=== PATIENT | male | born 1970 | race Caucasian/White ===

== ENCOUNTER → 2020-04-07 13:29 | Outpatient (BNVA) | payer BC, SELFPAY | PROVIDERS: PCP Nurse Practitioner Family; Referring Provider Nurse Practitioner Family; Visit Provider Dietitian, Registered | DX: Z76.89 Persons encountering health services in other specified circumstances (principal) ==

== ENCOUNTER → 2020-04-08 14:36 | Outpatient (BNVA) | payer BC, SELFPAY | PROVIDERS: PCP Nurse Practitioner Family; Referring Provider Nurse Practitioner Family; Visit Provider Urology | DX: Z76.89 Persons encountering health services in other specified circumstances (principal) ==

== ENCOUNTER → 2020-05-13 13:29 | Outpatient (BNVA) | payer BC, SELFPAY | PROVIDERS: PCP Nurse Practitioner Family; Referring Provider Nurse Practitioner Family; Visit Provider Dietitian, Registered | DX: E78.5 Hyperlipidemia, unspecified (principal); Z71.3 Dietary counseling and surveillance; Z68.27 Body mass index [BMI] 27.0-27.9, adult | CPT/HCPCS: 97803 ==

== ENCOUNTER 2020-06-02 16:40 | Outpatient (REF) | payer BC, SELFPAY | END 2020-06-02 16:41 | disposition home or self-care (01) | LOC: HO.LAB 16:40 | PROVIDERS: PCP Nurse Practitioner Family; Visit Provider Internal Medicine | DX: Z20.828 Contact with and (suspected) exposure to other viral communicable diseases (principal) | CPT/HCPCS: C9803; U0003 ==

== ENCOUNTER → 2020-07-29 09:58 | Outpatient (BNVA) | payer BC, SELFPAY | PROVIDERS: PCP Nurse Practitioner Family; Referring Provider Nurse Practitioner Family; Visit Provider Dietitian, Registered | DX: E78.5 Hyperlipidemia, unspecified (principal) | CPT/HCPCS: 97803 ==

== ENCOUNTER 2020-08-05 12:07 | Outpatient (REF) | payer BC, SELFPAY ==
--- NOTE | 2020-08-05 12:11 | XR_ITS ---
EXAMINATION: XR HAND, LEFT CLINICAL INFORMATION: Pain left fingers COMPARISON: None TECHNIQUE: PA, lateral, and oblique views of the left hand. FINDINGS: The bones and soft tissues are normal. No fracture. Alignment is anatomic. Joint spaces are maintained. No erosions or soft tissue calcifications. XR/XR hand LT min 3V IMPRESSION: There is no visible acute fracture or dislocation especially no abnormality involving the first digit.
== END 2020-08-05 12:08 | disposition home or self-care (01) ==
LOC: HO.HMGCX 12:07
PROVIDERS: PCP Nurse Practitioner Family; Visit Provider Physician Assistant
DX: M79.645 Pain in left finger(s) (principal)
CPT/HCPCS: 73130

== ENCOUNTER → 2020-09-08 14:43 | Outpatient (BNVA) | payer BC, SELFPAY | PROVIDERS: PCP Nurse Practitioner Family; Visit Provider Orthopaedic Surgery ==

== ENCOUNTER 2020-10-02 07:13 | Outpatient (REF) | payer BC, SELFPAY ==
--- NOTE | ~2020-10-02 | MR_ITS ---
EXAMINATION: MR HAND WITHOUT CONTRAST, LEFT CLINICAL INFORMATION: Pain in the left finger. COMPARISON: Radiograph dated 08/05/2020 TECHNIQUE: Multiplanar MR imaging was obtained through the left hand without contrast material on a 1.5 Mariah magnet. The distal phalanges of the index through ring fingers are not fully included on these images. FINDINGS: A small cystic focus in the medial aspect of the triquetrum likely corresponds to a carpal cyst. Bone marrow signal is otherwise normal. No fracture or malalignment. Articular cartilage appears well preserved. Alignment is anatomic. No joint effusions are identified. Tendons are intact. No tears or tendinosis. No appreciable tenosynovitis. There is mild edema signal in the palmar aspect of the thumb around the flexor tendon proximal to the distal phalanx is of uncertain etiology and could be due to direct soft tissue contusion. No significant tenosynovitis. No focal lesions are identified. The pulleys appear intact. Intrinsic hand musculature is normal in signal intensity. The median nerve appears diminished in caliber at the level of the carpal tunnel with increased caliber proximally and distally. There is also mildly increased intrasubstance signal within the median nerve at the level of the carpal tunnel. Guyon's canal is unremarkable. MR/MR hand LT wo con IMPRESSION: 1. Mild edema signal around the flexor tendon of the thumb without a tear, tendinosis, or tenosynovitis. This finding is of uncertain etiology, potentially due to a contusion or local trauma. No inflammatory nodules are identified. 2. Narrow carpal tunnel with mild associated thinning of the median nerve. These findings are nonspecific, though correlation for symptoms of carpal tunnel syndrome is advised.
== END 2020-10-02 07:14 | disposition home or self-care (01) ==
LOC: HO.MRI 07:13
PROVIDERS: Visit Provider Orthopaedic Surgery
DX: M79.645 Pain in left finger(s) (principal)
CPT/HCPCS: 73218

== ENCOUNTER → 2020-10-22 09:06 | Outpatient (BNVA) | payer BC, SELFPAY | PROVIDERS: Visit Provider Orthopaedic Surgery ==

== ENCOUNTER → 2020-11-26 08:56 | Outpatient (BNVA) | payer BC, SELFPAY | PROVIDERS: PCP Nurse Practitioner Family; Visit Provider Dietitian, Registered | DX: E78.5 Hyperlipidemia, unspecified (principal) | CPT/HCPCS: 97803 ==

== ENCOUNTER → 2021-02-27 12:12 | Outpatient (BNVA) | payer BC, SELFPAY | PROVIDERS: PCP Nurse Practitioner Family; Visit Provider Dietitian, Registered | DX: E78.5 Hyperlipidemia, unspecified (principal); Z88.6 Allergy status to analgesic agent; Z88.5 Allergy status to narcotic agent; Z88.8 Allergy status to other drugs, medicaments and biological substances; Z91.018 Allergy to other foods; Z71.3 Dietary counseling and surveillance | CPT/HCPCS: 97803 ==

== ENCOUNTER 2021-03-04 15:03 | Outpatient (REF) | payer BC, SELFPAY ==
--- NOTE | ~2021-03-04 | XR_ITS ---
EXAMINATION: XR CHEST CLINICAL INFORMATION: Shortness of breath COMPARISON: June 21, 2019 TECHNIQUE: 2 views of the chest were obtained. FINDINGS: No significant abnormality is noted involving the heart, lungs, mediastinum, bony thorax or soft tissues. XR/XR chest 2V IMPRESSION: No acute disease.
== END 2021-03-04 15:04 | disposition home or self-care (01) ==
LOC: HO.HMGCX 15:03
PROVIDERS: PCP Nurse Practitioner Family; Visit Provider Internal Medicine
DX: Z13.89 Encounter for screening for other disorder (principal)
CPT/HCPCS: 71046

== ENCOUNTER 2021-04-08 14:40 | Outpatient (REF) | payer BC, SELFPAY ==
--- NOTE | ~2021-04-08 | XR_ITS ---
EXAMINATION: XR CHEST CLINICAL INFORMATION: Shortness of breath COMPARISON: Previous chest x-ray March 2021 TECHNIQUE: 2 views of the chest were obtained. FINDINGS: No significant abnormality is noted involving the heart, lungs, mediastinum, bony thorax or soft tissues. XR/XR chest 2V IMPRESSION: Unremarkable examination.
[2021-04-08 16:30] LABS: MANUAL DIFF FLAG NO
[2021-04-08 16:32] LABS: Basophils Absolute Auto 0.1 X10*3/uL (0.0-0.2); Basophils Percent Auto 1.1 % (0-2); Eosinophils Absolute Auto 0.1 X10*3/uL (0.0-0.4); Eosinophils Percent Auto 0.9 % (0-4); Hemoglobin 14.1 g/dl (14.0-18.0); Imm Gran Abs Auto 0.02 X10*3/uL (0.00-0.03); Imm Gran Pct Auto 0.4 % (0.0-0.4); Lymphocytes Absolute Auto 1.6 X10*3/uL (1.2-4.9); Mean Corpuscular HGB Conc 32.8 g/dl (31.0-36.0); Mean Corpuscular Hemoglobin 27.3 pg (27.0-33.0); Mean Corpuscular Volume 83.3 fL (80-98); Monocytes Absolute Auto 0.4 X10*3/uL (0.1-1.2); Monocytes Percent Auto 6.8 % (2-11); Neutrophils Absolute Auto 3.3 X10*3/uL (2.0-8.3); Neutrophils Percent Auto 60.8 % (45-73); Platelet Count 222 X10*3/uL (160-400); Red Blood Count 5.16 X10*6/uL (4.60-5.80); Red Cell Distribution Width 12.6 % (11.0-16.0); White Blood Count 5.5 X10*3/uL (4.8-10.8)
[2021-04-08 17:21] LABS: TSH reflex Free T4 1.17 uIU/mL (0.32-4.0)
== END 2021-04-08 14:41 | disposition home or self-care (01) ==
LOC: HO.HMGCX 14:40
PROVIDERS: PCP Nurse Practitioner Family; Visit Provider Nurse Practitioner Family
DX: Z00.00 Encounter for general adult medical examination without abnormal findings (principal); R06.02 Shortness of breath; Z20.822 Contact with and (suspected) exposure to COVID-19
CPT/HCPCS: 71046; 84443; 85025; U0003; U0005

== ENCOUNTER 2021-05-20 14:01 | Outpatient (REF) | payer BC, SELFPAY ==
--- NOTE | ~2021-05-20 | US_ITS ---
EXAMINATION: US RETROPERITONEAL LIMITED (RENAL ONLY) CLINICAL INFORMATION: Cyst of kidney, acquired. COMPARISON: Ultrasound abdomen 03/28/2014. Renal ultrasound 03/24/2020 and 03/13/2019. TECHNIQUE: Real-time imaging of the kidneys. FINDINGS: RIGHT KIDNEY: 12.0 x 6.3 x 6.8 cm (SAG x AP x TRV). The kidney is normal in size, contour, and echogenicity. Renal cortical thickness is normal. No renal calculi or hydronephrosis. The midpole benign Bosniak class I simple cyst present measuring 3.8 x 3.1 x 3.3 cm, needs no further follow up. LEFT KIDNEY: 11.3 x 5.6 x 5.6 cm (SAG x AP x TRV). The kidney is normal in size, contour, and echogenicity. Renal cortical thickness is normal. No renal calculi or hydronephrosis. Benign Bosniak class I lower pole 1.1 x 0.9 x 1.0 cm cyst needs no further follow up. Incidental note made of an echogenic liver consistent with hepatic steatosis. US/US renal BI IMPRESSION: Benign simple Bosniak class I cysts need no further follow up. Incidentally noted hepatic steatosis which has been seen in the past.
== END 2021-05-20 14:02 | disposition home or self-care (01) ==
LOC: HO.US 14:01
PROVIDERS: Visit Provider Urology
DX: N28.1 Cyst of kidney, acquired (principal)
CPT/HCPCS: 76775

== ENCOUNTER → 2021-09-11 11:58 | Outpatient (BNVA) | payer BC, SELFPAY | PROVIDERS: PCP Nurse Practitioner Family; Visit Provider Dietitian, Registered | DX: E78.5 Hyperlipidemia, unspecified (principal); Z71.3 Dietary counseling and surveillance | CPT/HCPCS: 97803 ==

== ENCOUNTER 2021-09-15 11:42 | Outpatient (REF) | payer BC, SELFPAY ==
[2021-09-15 14:00] LABS: Hematocrit 47.7 % (42.0-52.0); Hemoglobin 15.5 g/dl (14.0-18.0); Mean Corpuscular HGB Conc 32.5 g/dl (31.0-36.0); Mean Corpuscular Hemoglobin 27.1 pg (27.0-33.0); Mean Corpuscular Volume 83.4 fL (80.0-98.0); Platelet Count 200 X10*3/uL (160-400); Red Blood Count 5.72 X10*6/uL (4.60-5.80); Red Cell Distribution Width 12.4 % (11.0-16.0)
[2021-09-15 14:16] LABS: Alanine Aminotransferase 41 U/L (0-40); Albumin Level 4.7 g/dL (3.5-5.0); Alkaline Phosphatase 84 U/L (39-117); Anion Gap 15 (12-20); Aspartate Amino Transferase 20 U/L (5-37); Bilirubin Direct 0.2 mg/dL (0.0-0.5); Bilirubin Total 0.6 mg/dL (0.0-1.0); Blood Urea Nitrogen 14 mg/dL (9-16); C Reactive Protein 0.05 mg/dL (< or = 0.50); Calcium 9.9 mg/dL (8.4-10.2); Carbon Dioxide 27 mmol/L (22-29); Chloride 97 mmol/L (96-108); Cholesterol 290 mg/dL; Estimated Glomerular Filt Rate > 60; Glucose Random 347 mg/dL (60-115); HDL Cholesterol 41 mg/dL; Potassium 4.2 mmol/L (3.3-5.1); Sodium 135 mmol/L (135-145); Triglycerides 468 mg/dL
[2021-09-15 14:30] LABS: Thyroid Stimulating Hormone 1.24 uIU/mL (0.32-4.0)
[2021-09-15 14:32] LABS: Estimated Average Glucose 295 mg/dL; Hemoglobin A1c % 11.9 %
[2021-09-15 14:36] LABS: Appearance Urine CLEAR; Color Urine YELLOW; Glucose Urine UA >=1000 MG/DL (NEG); Leukocyte Esterase Urine NEG (NEG); Nitrite Urine NEG (NEG); PH 5.5 (5.0-8.0); Urine Blood 2+ (NEG); Urine Ketones NEG (NEG); Urine Protein NEG (NEG-TRACE)
[2021-09-15 14:54] LABS: Squamous Epithelial Cell Urine TRACE /LPF; WBC Urine 0 /HPF (0-4)
== END 2021-09-15 11:43 | disposition home or self-care (01) ==
LOC: HO.HMGCLDS 11:42
PROVIDERS: Visit Provider Internal Medicine
DX: R63.4 Abnormal weight loss (principal)
CPT/HCPCS: 36415; 80048; 80061; 80076; 81001; 81003; 83036; 84443; 85027; 86140

== ENCOUNTER → 2021-10-29 12:54 | Outpatient (BNVA) | payer BC, SELFPAY | PROVIDERS: PCP Nurse Practitioner Family; Visit Provider Internal Medicine Endocrinology, Diabetes & Metabolism | DX: E11.39 Type 2 diabetes mellitus with other diabetic ophthalmic complication (principal); E11.65 Type 2 diabetes mellitus with hyperglycemia; Z79.4 Long term (current) use of insulin; Z79.84 Long term (current) use of oral hypoglycemic drugs; Z79.899 Other long term (current) drug therapy | CPT/HCPCS: 82947 ==

== ENCOUNTER 2021-10-30 09:50 | Outpatient (REF) | payer BC, SELFPAY ==
[2021-10-30 11:13] LABS: Creatinine Urine 76.49 mg/dL; Microalbumin Urine < 5.0 mg/L
[2021-11-01 02:41] LABS: C Peptide 5.06 ng/mL (0.80-3.85)
[2021-11-03 20:26] LABS: Glutamic acid decarboxylase Ab <5 IU/mL (<5)
== END 2021-10-30 09:51 | disposition home or self-care (01) ==
LOC: HO.LAB 09:50
PROVIDERS: PCP Nurse Practitioner Family; Visit Provider Internal Medicine Endocrinology, Diabetes & Metabolism
DX: E11.39 Type 2 diabetes mellitus with other diabetic ophthalmic complication (principal); E11.65 Type 2 diabetes mellitus with hyperglycemia
CPT/HCPCS: 36415; 82043; 84681; 86341

== ENCOUNTER → 2021-11-19 14:59 | Outpatient (BNVA) | payer BC, SELFPAY | PROVIDERS: PCP Nurse Practitioner Family; Visit Provider Registered Nurse Diabetes Educator | DX: E11.39 Type 2 diabetes mellitus with other diabetic ophthalmic complication (principal) ==

== ENCOUNTER → 2021-12-14 12:30 | Outpatient (BNVA) | payer BC, SELFPAY | PROVIDERS: PCP Nurse Practitioner Family; Visit Provider Dietitian, Registered | DX: E78.5 Hyperlipidemia, unspecified (principal) | CPT/HCPCS: 97803 ==

== ENCOUNTER 2021-12-22 07:03 | Outpatient (REF) | payer BC, SELFPAY ==
[2021-12-22 07:41] LABS: Estimated Average Glucose 151 mg/dL; Hemoglobin A1c % 6.9 %
[2021-12-22 07:50] LABS: Appearance Urine CLEAR; Color Urine YELLOW; Glucose Urine UA NEG (NEG); Leukocyte Esterase Urine NEG (NEG); Nitrite Urine NEG (NEG); PH 5.5 (5.0-8.0); Specific Gravity - Urine 1.015 (1.005-1.025); UACC Culture Trigger NO; Urine Blood 3+ (NEG); Urine Ketones NEG (NEG); Urine Protein NEG (NEG-TRACE)
[2021-12-22 07:51] LABS: Alanine Aminotransferase 72 U/L (0-40); Albumin Level 4.5 g/dL (3.5-5.0); Alkaline Phosphatase 49 U/L (39-117); Anion Gap 10 (12-20); Aspartate Amino Transferase 38 U/L (5-37); Bilirubin Total 1.2 mg/dL (0.0-1.0); Blood Urea Nitrogen 12 mg/dL (9-16); Calcium 9.4 mg/dL (8.4-10.2); Carbon Dioxide 29 mmol/L (22-29); Chloride 102 mmol/L (96-108); Cholesterol 199 mg/dL; Estimated Glomerular Filt Rate > 60; Glucose Fasting 117 mg/dL (60-99); HDL Cholesterol 48 mg/dL; LDL Cholesterol Calculated 131 mg/dl; Potassium 4.4 mmol/L (3.3-5.1); Sodium 137 mmol/L (135-145); Total Protein 7.2 g/dL (6.5-8.0); Triglycerides 103 mg/dL
[2021-12-22 08:04] LABS: Squamous Epithelial Cell Urine TRACE /LPF; WBC Urine 0 /HPF (0-4)
[2021-12-22 08:14] LABS: Ferritin 218 ng/mL (20-250); TSH reflex Free T4 1.89 uIU/mL (0.32-4.0)
== END 2021-12-22 07:04 | disposition home or self-care (01) ==
LOC: HO.LAB 07:03
PROVIDERS: PCP Nurse Practitioner Family; Visit Provider Nurse Practitioner Family
DX: E11.65 Type 2 diabetes mellitus with hyperglycemia (principal); E11.39 Type 2 diabetes mellitus with other diabetic ophthalmic complication
CPT/HCPCS: 36415; 80053; 80061; 81001; 82728; 83036; 84443

== ENCOUNTER → 2022-01-27 14:03 | Outpatient (BNVA) | payer BC, SELFPAY | PROVIDERS: PCP Nurse Practitioner Family; Visit Provider Internal Medicine Endocrinology, Diabetes & Metabolism | DX: E11.39 Type 2 diabetes mellitus with other diabetic ophthalmic complication (principal); E11.65 Type 2 diabetes mellitus with hyperglycemia | CPT/HCPCS: 82947 ==

== ENCOUNTER 2022-02-22 07:44 | Outpatient (REF) | payer BC, SELFPAY ==
--- NOTE | ~2022-02-22 | US_ITS ---
EXAMINATION: US ABDOMEN COMPLETE CLINICAL INFORMATION: Abnormal levels of other serum enzymes. COMPARISON: US retroperitoneal limited (renal only) 05/20/2021 and 03/24/2020. US abdomen complete 03/28/2014. TECHNIQUE: Real-time imaging of the abdominal viscera. FINDINGS: PANCREAS: Normal. ABDOMINAL AORTA: The proximal, mid, and distal segments are normal in caliber. INFERIOR VENA CAVA: Visualized portions are normal. LIVER: The liver is normal in size. The liver contour is normal. There is diffuse increased liver echogenicity with areas of focal fatty sparing in right hepatic lobe measuring 1.3 x 1.1 x 1.3 cm. There is a hyperechoic area seen in the left lower lobe measuring 1.4 x 1.0 x 1.7 cm. No focal hepatic lesion. There is no intrahepatic biliary duct dilatation seen. GALLBLADDER: Normal. The gallbladder is physiologically distended without evidence of stones, sludge, polyps, wall thickening or pericholecystic fluid. COMMON BILE DUCT: Normal in caliber measuring 0.2 cm in diameter. RIGHT KIDNEY: There is an anechoic cyst in the midpole measuring 3.6 x 2.9 x 3.8 cm. No hydronephrosis or renal calculi. The kidney measures 12.1 cm in maximum dimension. LEFT KIDNEY: There is an anechoic cyst in the lower pole measuring 1.1 x 1.0 x 1.1 cm. No hydronephrosis or renal calculi. The kidney measures 11.7 cm in maximum dimension. SPLEEN: Normal. The spleen measures 8.7 cm in maximum dimension. FREE FLUID: None. US/US abdomen complete IMPRESSION: Diffuse fatty infiltration of liver with areas of focal fatty sparing. Bilateral anechoic renal cysts. No echogenic stones or hydronephrosis.
[2022-02-22 09:38] LABS: Appearance Urine Clear; Color Urine Yellow; Glucose Urine UA Negative (Negative); Leukocyte Esterase Urine Negative (Negative); Nitrite Urine Negative (Negative); PH 6.5 (5.0-8.0); Specific Gravity - Urine 1.015 (1.005-1.025); Urine Blood Moderate (2+) (Negative); Urine Ketones Negative (Negative); Urine Protein Negative (Neg-Trace)
[2022-02-22 09:45] LABS: Bacteria Urine None Seen (None Seen); Hyaline Casts Urine 0-2 /LPF (0-2); Squamous Epithelial Cell Urine 0-2 /HPF (0-2); WBC Urine 0-5 /HPF (0-5)
[2022-02-22 09:46] LABS: Alanine Aminotransferase 49 U/L (0-40); Albumin Level 4.6 g/dL (3.5-5.0); Alkaline Phosphatase 50 U/L (39-117); Anion Gap 12 (12-20); Aspartate Amino Transferase 28 U/L (5-37); Bilirubin Direct 0.3 mg/dL (0.0-0.5); Bilirubin Total 0.8 mg/dL (0.0-1.0); Blood Urea Nitrogen 9 mg/dL (9-16); Calcium 9.3 mg/dL (8.4-10.2); Carbon Dioxide 29 mmol/L (22-29); Chloride 102 mmol/L (96-108); Cholesterol 184 mg/dL; Estimated Glomerular Filt Rate > 60; Glucose Fasting 108 mg/dL (60-99); HDL Cholesterol 44 mg/dL; LDL Cholesterol Calculated 108 mg/dl; Potassium 4.1 mmol/L (3.3-5.1); Sodium 139 mmol/L (135-145); Total Protein 7.5 g/dL (6.5-8.0); Triglycerides 163 mg/dL
[2022-02-22 10:05] LABS: HBS Num1 5.36 mIU/mL (0-7.99); HBc Num1 0.47 S/CO (0.00-0.79); HBsAGNum1 0.21 S/CO (0.00-0.99); Hepatitis B Core Antibody Nonreactive (Nonreactive); Hepatitis B Surface Antigen Negative (Negative); ~HepC Num1 0.08 S/CO (0.00-0.79); ~Hepatitis B Surface Antibody NONREACTIVE (Nonreactive); ~Hepatitis C Antibody Nonreactive (Nonreactive)
[2022-02-22 10:08] LABS: TSH reflex Free T4 1.49 uIU/mL (0.32-4.0)
[2022-02-24 07:29] LABS: Hepatitis A Antibody IgM 0.13 Index (0-0.79); ~Hepatitis A Antibody IgM Nonreactive (Nonreactive)
== END 2022-02-22 07:45 | disposition home or self-care (01) ==
LOC: HO.US 07:44
PROVIDERS: PCP Nurse Practitioner Family; Visit Provider Nurse Practitioner Family
DX: R74.8 Abnormal levels of other serum enzymes (principal); E11.39 Type 2 diabetes mellitus with other diabetic ophthalmic complication; E11.65 Type 2 diabetes mellitus with hyperglycemia
CPT/HCPCS: 36415; 76700; 80053; 80061; 80076; 81001; 82248; 84443; 86704; 86706; 86709; 86803; 87340

== ENCOUNTER 2022-03-18 10:08 | Outpatient (REF) | payer BC, SELFPAY ==
[2022-03-18 10:34] LABS: MANUAL DIFF FLAG NO
[2022-03-18 11:22] LABS: Urine Cytology See Pathology rpt
[2022-03-18 11:30] LABS: Basophils Absolute Auto 0.1 X10*3/uL (0.0-0.2); Basophils Percent Auto 0.9 % (0-2); Eosinophils Percent Auto 0.6 % (0-4); Hemoglobin 15.2 g/dl (14.0-18.0); Imm Gran Abs Auto 0.01 X10*3/uL (0.00-0.03); Imm Gran Pct Auto 0.1 % (0.0-0.4); Lymphocytes Absolute Auto 1.7 X10*3/uL (1.2-4.9); Lymphocytes Percent Auto 23.9 % (20-40); Mean Corpuscular HGB Conc 33.8 g/dl (31.0-36.0); Mean Corpuscular Volume 82.9 fL (80.0-98.0); Mean Platelet Volume 10.3 fL (9.4-12.4); Monocytes Absolute Auto 0.5 X10*3/uL (0.1-1.2); Monocytes Percent Auto 7.7 % (2-11); Neutrophils Absolute Auto 4.7 x10*3/uL (2.0-8.3); Neutrophils Percent Auto 66.8 % (45-73); Platelet Count 212 X10*3/uL (160-400); Red Blood Count 5.43 X10*6/uL (4.60-5.80); Red Cell Distribution Width 12.5 % (11.0-16.0)
[2022-03-18 11:42] LABS: Appearance Urine Clear; Color Urine Yellow; Glucose Urine UA Negative (Negative); Leukocyte Esterase Urine Negative (Negative); Nitrite Urine Negative (Negative); PH 6.5 (5.0-9.0); Specific Gravity - Urine <= 1.005 (1.005-1.025); UMIC TRIGGER UA YES; UMIC TRIGGER UACC YES; Urine Blood Small (1+) (Negative); Urine Ketones Negative (Negative); Urine Protein Negative (Neg-Trace)
[2022-03-18 11:46] LABS: Estimated Average Glucose 120 mg/dL; Hemoglobin A1c % 5.8 %
[2022-03-18 12:00] LABS: Bacteria Urine None Seen (None Seen); Hyaline Casts Urine 0-2 /LPF (0-2); Squamous Epithelial Cell Urine 0-2 /HPF (0-2); WBC Urine 0-5 /HPF (0-5)
[2022-03-18 12:03] LABS: Alanine Aminotransferase 93 U/L (0-40); Albumin Level 4.8 g/dL (3.5-5.0); Alkaline Phosphatase 57 U/L (39-117); Anion Gap 16 (12-20); Aspartate Amino Transferase 34 U/L (5-37); Bilirubin Total 0.7 mg/dL (0.0-1.0); Blood Urea Nitrogen 11 mg/dL (9-16); Carbon Dioxide 26 mmol/L (22-29); Chloride 99 mmol/L (96-108); Estimated Glomerular Filt Rate > 60; Glucose Random 104 mg/dL (60-115); Potassium 4.6 mmol/L (3.3-5.1); Sodium 136 mmol/L (135-145); Total Protein 7.9 g/dL (6.5-8.0)
[2022-03-18 12:26] LABS: TSH reflex Free T4 1.17 uIU/mL (0.32-4.0)
== END 2022-03-18 10:09 | disposition home or self-care (01) ==
LOC: HO.LAB 10:08
PROVIDERS: PCP Nurse Practitioner Family; Visit Provider Nurse Practitioner Family
DX: R31.29 Other microscopic hematuria (principal); E11.9 Type 2 diabetes mellitus without complications; E78.5 Hyperlipidemia, unspecified
CPT/HCPCS: 36415; 80053; 81001; 83036; 84443; 85025; 87086; 88112; 97803

== ENCOUNTER 2022-04-23 09:51 | Day surgery (SDC) | payer BC, SELFPAY ==
--- NOTE | 2022-04-23 09:54 | MHC.SHP ---
Pre-Procedural Eval Section A Date of Service: 04/23/22 The patient is an INPATIENT: No The History & Physical has been completed within 30 days and I have reviewed it.: No Section B Chief Complaint: screening Relevant Family History (Specify if Yes): Yes Relevant Social History: None Present Medications: see Short Stay Collaborative assessment Medical History: Significant History (Diabetes, elevated cholesterol) History of Previous Operations: Relevant previous surgery/procedure and date(s) (H/O vasectomy) Allergies: Allergies Allergy/AdvReac Type Severity Reaction Status Date / Time acetaminophen [From Percocet] Allergy Severe ANAPHYLAXIS Verified 03/25/22 17:34 eggplant Allergy Severe Itching, Verified 04/19/22 15:36 swelling, difficulty breathing oxycodone [Percocet] Allergy Severe Anaphylaxis Verified 04/19/22 15:36 celecoxib [Celebrex] Allergy Unknown unknown Verified 04/19/22 15:36 opiates Allergy Unknown unknown Verified 04/19/22 15:36 Review of Systems Sugical H&P ROS: Negative: Constitution, Cardiovascular, Respiratory and Gastrointestinal Exam Surgical H&P Exam: Normal: Heart, Normal: Lungs, Normal: Extremities and Normal: Abdomen Plan Diagnosis/Plan: Unchanged I have reviewed the history and physical and performed a pertinent physical examination on my patient. No changes have occurred unless specified.
--- NOTE | 2022-04-23 09:55 | P.BOP_ITS ---
Brief Operative Note Date of Service: 04/23/22 Pre-op diagnosis: colon cancer screening, family history of colon cancer Post-op diagnosis: other ( diverticulosis, hemorrhoids) Procedure: COLONOSCOPY TILL CECUM Consent: Indications for the procedure and potential complications of bleeding, perforation, reaction to medications and missed diagnosis were discussed with the patient and informed consent was obtained. Instrument: Olympus PCF H 190 L variable stiffness pediatric colonoscope Monitoring: Vital signs and clinical assessment, intermittent blood pressure monitoring, continuous EKG monitoring, Pulse oximetry and Carbon Dioxide monitoring were done throughout the procedure. Colon withdrawl time was 19 minutes. Procedure: The patient was placed in the left lateral decubitis position and pre-procedure medications were administered. After a digital rectal examination of the ano-rectum, the video colonoscope was inserted into the rectum and advanced through the colon to the cecum. The colonoscope was slowly withdrawn in a retrograde panoramic fashion and the colon mucosa was carefully examined including a retroflexed view of the rectum. Findings and interventions are described below. Procedure Difficulty: colon was long and there was some loop formation. LLQ pressure applied to intubate the cecum Findings: Terminal Ileum: Not evaluated Cecum: Normal Ascending Colon: Normal Transverse Colon: Normal Descending Colon: Normal Sigmoid Colon: Mild diverticulosis Rectum: Normal Ano-rectum: Moderate internal hemorrhoids Colon preparation: Excellent Impression and Post Procedure Diagnosis: Colonoscopy Findings: No polyps were detected. Mild diverticulosis seen in the sigmoid colon Moderate hemorrhoids on retroflexed exam. Plan: Patient has an appointment on 05/06/22 in the GI Clinic with Lauren Dao NP. Repeat Colonoscopy in 5 years due to positive FH (Dad in his mid 60's). Above findings were reviewed with the patient and diverticulosis handout was given in the discharge area Surgeon: Jillian Weems MD Anesthesia: MAC (Dr Bustamante) Was an Press Department Manager used for this Procedure?: No Press Department Manager: Madelyn Fenton Estimated blood loss (mL): 0 Pathology: none sent Condition: stable Disposition: PACU
[2022-04-23 09:58] VITALS: BMI 25.4
[2022-04-23 10:05] VITALS: BP 135/92; PULSE 92; RESP 15; TEMP 36.2; O2SAT 99
[2022-04-23 10:09] LABS: Glucose, Whole Blood 102 mg/dL (60-115)
[2022-04-23] MEDS: Lactated Ringers 1,000 ML 100 ML IVCONT (10:18)
--- NOTE | 2022-04-23 10:27 | P.OP_ITS ---
Operative Note Operative Note Date of Service: 04/23/22 Narrative: Pre-op diagnosis: colon cancer screening, family history of colon cancer Post-op diagnosis:?other ( diverticulosis, hemorrhoids) Procedure: COLONOSCOPY TILL CECUM Consent: Indications for the procedure and potential complications of bleeding, perforation, reaction to medications and missed diagnosis were discussed with the patient and informed consent was obtained. Instrument: Olympus PCF H 190 L variable stiffness pediatric colonoscope Monitoring: Vital signs and clinical assessment, intermittent blood pressure monitoring, continuous EKG monitoring, Pulse oximetry and Carbon Dioxide monitoring were done throughout the procedure. Colon withdrawl time was 19 minutes. Procedure: The patient was placed in the left lateral decubitis position and pre-procedure medications were administered. After a digital rectal examination of the ano-rectum, the video colonoscope was inserted into the rectum and advanced through the colon to the cecum. The colonoscope was slowly withdrawn in a retrograde panoramic fashion and the colon mucosa was carefully examined including a retroflexed view of the rectum. Findings and interventions are described below. Procedure Difficulty:? colon was long and there was some loop formation.? LLQ pressure applied to intubate the cecum Findings: Terminal Ileum: Not evaluated Cecum:? Normal Ascending Colon:? Normal Transverse Colon:? Normal Descending Colon:? Normal Sigmoid Colon:? Mild diverticulosis Rectum:? Normal Ano-rectum:? Moderate internal hemorrhoids Colon preparation: Excellent ? Impression and Post Procedure Diagnosis: Colonoscopy Findings: No polyps were detected. Mild diverticulosis seen in the sigmoid colon Moderate hemorrhoids on retroflexed exam. Plan: Patient has an appointment on 05/06/22 in the GI Clinic with? Lauren Dao NP. Repeat Colonoscopy in 5 years due to positive FH (Dad in his mid 60's) - adult colonoscope for future colonoscopies. Above findings were reviewed with the patient and diverticulosis handout was given in the discharge area Surgeon: Jillian Weems MD Anesthesia:?MAC (Dr Bustamante) Was an Guide Excursion used for this Procedure?:?No Guide Excursion:?Madelyn Fenton Estimated blood loss (mL):?0 Pathology:?none sent Condition:?stable Disposition:?PACU
[2022-04-23 11:05] VITALS: BP 140/95; PULSE 86; RESP 14; TEMP 36.3; O2SAT 96
[2022-04-23 11:20] VITALS: BP 146/91; PULSE 75; RESP 16; O2SAT 100
[2022-04-23 11:35] VITALS: BP 150/106; PULSE 78; RESP 16; O2SAT 100
[2022-04-23] MEDS: Tetracaine HCl/PF 0.5% Oph Sol 4 ML DROPS 3 DROP EYE-LEFT (11:49)
[2022-04-23 11:50] VITALS: BP 163/98; PULSE 77; RESP 16; O2SAT 100
[2022-04-23] MEDS: Erythromycin Base 0.5% Oph Oin 1 GM TUBE 1 CM EYE-LEFT (11:53)
[2022-04-23 12:20] VITALS: BP 156/93; PULSE 76; RESP 18; TEMP 36.3; O2SAT 99
== END 2022-04-23 12:35 | disposition home or self-care (01) ==
PROVIDERS: PCP Nurse Practitioner Family; Visit Provider Internal Medicine Gastroenterology
PROC: 0DJD8ZZ Inspection of Lower Intestinal Tract, Via Natural or Artificial Opening Endoscopic (ICD-10-PCS; CPT 45378; principal; 2022-04-23 10:30)
DX: Z12.11 Encounter for screening for malignant neoplasm of colon (principal); Z80.0 Family history of malignant neoplasm of digestive organs; K57.30 Diverticulosis of large intestine without perforation or abscess without bleeding; K64.8 Other hemorrhoids; E78.00 Pure hypercholesterolemia, unspecified; E11.9 Type 2 diabetes mellitus without complications; Z79.84 Long term (current) use of oral hypoglycemic drugs; Z79.899 Other long term (current) drug therapy; Z88.8 Allergy status to other drugs, medicaments and biological substances
CPT/HCPCS: 45378; 82947

== ENCOUNTER → 2022-05-14 14:02 | Outpatient (BNVA) | payer BC, SELFPAY | PROVIDERS: PCP Nurse Practitioner Family; Visit Provider Internal Medicine Endocrinology, Diabetes & Metabolism | DX: E11.39 Type 2 diabetes mellitus with other diabetic ophthalmic complication (principal); E11.65 Type 2 diabetes mellitus with hyperglycemia | CPT/HCPCS: 82947 ==

== ENCOUNTER → 2022-09-15 14:05 | Outpatient (BNVA) | payer BC, SELFPAY | PROVIDERS: PCP Nurse Practitioner Family; Visit Provider Dietitian, Registered | DX: E78.5 Hyperlipidemia, unspecified (principal) | CPT/HCPCS: 97803 ==

== ENCOUNTER 2022-10-29 06:47 | Outpatient (REF) | payer BC, SELFPAY ==
[2022-10-29 08:14] LABS: Alanine Aminotransferase 56 U/L (0-40); Albumin Level 4.5 g/dL (3.5-5.0); Alkaline Phosphatase 55 U/L (39-117); Aspartate Amino Transferase 25 U/L (5-37); Bilirubin Direct 0.2 mg/dL (0.0-0.5); Bilirubin Total 0.8 mg/dL (0.0-1.0); Total Protein 7.3 g/dL (6.5-8.0)
[2022-10-29 08:35] LABS: Estimated Average Glucose 123 mg/dL; Hemoglobin A1c % 5.9 %
== END 2022-10-29 06:48 | disposition home or self-care (01) ==
LOC: HO.LAB 06:47
PROVIDERS: PCP Nurse Practitioner Family; Visit Provider Internal Medicine Endocrinology, Diabetes & Metabolism
DX: E11.39 Type 2 diabetes mellitus with other diabetic ophthalmic complication (principal); E11.65 Type 2 diabetes mellitus with hyperglycemia
CPT/HCPCS: 36415; 80076; 82947; 83036

== ENCOUNTER 2023-02-07 14:38 | Outpatient (REF) | payer BC, SELFPAY ==
--- NOTE | ~2023-02-07 | US_ITS ---
EXAMINATION: US RETROPERITONEAL LIMITED (RENAL ONLY) CLINICAL INFORMATION: Cyst of kidney, acquired. COMPARISON: Ultrasound abdomen complete 02/22/2022. Ultrasound retroperitoneal limited (renal only) 05/20/2021. TECHNIQUE: Real-time imaging of the kidneys. FINDINGS: RIGHT KIDNEY: 11.2 x 6.4 x 6.6 cm (SAG x AP x TRV). The kidney is normal in size, contour, and echogenicity. Renal cortical thickness is normal. No renal calculi or hydronephrosis. Multiple cysts identified measuring 3.6 x 3.3 x 4.3 cm and 1.9 x 1.6 x 1.5 cm in interpolar area and 0.9 x 0.7 x 0.7 cm in the upper pole. LEFT KIDNEY: 11.6 x 5.6 x 5.7 cm (SAG x AP x TRV). The kidney is normal in size, contour, and echogenicity. Renal cortical thickness is normal. No renal calculi or hydronephrosis. There is lower pole 1.3 x 1.3 x 1.3 cm simple cyst. US/US renal BI IMPRESSION: Bilateral renal cysts..
== END 2023-02-07 14:39 | disposition home or self-care (01) ==
LOC: HO.US 14:38
PROVIDERS: PCP Nurse Practitioner Family; Visit Provider Nurse Practitioner Family
DX: N28.1 Cyst of kidney, acquired (principal)
CPT/HCPCS: 76775

== ENCOUNTER 2023-03-16 13:31 | Outpatient (AMB) | payer BC, SELFPAY ==
[2023-03-16 13:50] VITALS: BMI 27.4
--- NOTE | 2023-03-16 13:50 | A.OFFVIS_ITS ---
Intake VS Expanded 03/16/23 13:50 Height 5 ft 8 in Weight 180 lb 5.41 oz BMI 27.4 Intake Visit Reasons: DM Allergies acetaminophen [From Percocet] Allergy (Severe, Verified 03/17/23 15:38) ANAPHYLAXIS eggplant Allergy (Severe, Verified 03/17/23 15:38) Itching, swelling, difficulty breathing oxycodone [Percocet] Allergy (Severe, Verified 03/17/23 15:38) Anaphylaxis celecoxib [Celebrex] Allergy (Unknown, Verified 03/17/23 15:38) unknown opiates Allergy (Unknown, Verified 03/17/23 15:38) unknown HPI Nutrition Presentation Details Pt presents for MNT for T2DM Pt reports doing well, eating well. No hyper or hypoglycemia. Pt verbalizes understanding relationship of food , fibers/carbs/sat'd fats to BG , lipids and heart health. Reports keeping hydrated and keeping physically active, walking at work + daily live activities no questions or concerns expressed at this time. Most Recent Diabetes Results: AST 25 U/L (5-37) 10/29/22 ALT 56 U/L (0-40) H 10/29/22 Total Protein 7.3 g/dL (6.5-8.0) 10/29/22 Albumin 4.5 g/dL (3.5-5.0) 10/29/22 [facility] Medical History Diverticulosis Elevated cholesterol DM type 2 (diabetes mellitus, type 2) Surgical History Hx of colonoscopy [place] teeth extracted H/O vasectomy Family History Mother No problems noted. Father Colon cancer Social History Housing: House Patient Tobacco Use Status: Never used Tobacco e-Cigarette/Vaping Use: Never Used Second Hand Smoke Exposure: No Current occupational status: employed Current occupation: left handed Cognitive needs: No Hearing needs: No Vision needs: No Assessment & Plan Assessment & Plan (1) Dyslipidemia: Code(s): E78.5 - Hyperlipidemia, unspecified Plan: Reinforce low sat'd fat food concept, and fiber rich foods, following healthy plate method EST Kcal NEEDS as per [address] Gideon: [id number] kcal/d Wt used: 83 kg est protein needs as per 0.8-1.0 g/kg bw: 83 g g/d est fluid needs as per 25 ml/kg bw: 2075 ml/d Rec fiber: 10 g per day and gradually increase up to 28-35 or as tolerated Educate patient on: (R= Reviewed, V = verbalizes understanding N/R= Needs review N/A= not applicable) * Food sources of carbohydrates and serving adequate serving sizes : R V * Difference between complex carbohydrates and simple carbohydrates, role of fiber: R V * Differences between fats (MUFA/PUFA/saturated fats, trans fats) and food sources of various fats: R V * Food sources of sodium and salt and healthy modifications for heart health and kidney health: R v * Vitamins and minerals: R V * How to interpret food labels: R V * Healthy Plate method concept: R V * Physical activity: benefits and precaution: R V Patient Instructions: Continue working on following healthy plate method Keep hydrated by having water with meals, snacks or if feeling thirsty Continue choosing MUFA/PUFA sources of foods (fish/nuts/seeds) and reducing on sat'd fats Limit alcohol intake, less than 2 servings if choosing to consume alcohol, have it with meals , monitor blood sugars and be cautious with hypoglycemia, treat hypoglycemia (blood glucose less than 70) by following rule of 15 (have 15 g carbs = 1/2 cup of regular juice or 3-4 glucose tablets or 1 tbsp of regular sugar, wait 15 minutes, re test blood glucose, repeat treatment if glucose continues below 70) contact your doctor and notify low blood glucose reactions for further assessment Coding Level of Care Code Nutr Indiv Subseq (93025) Diagnoses Dyslipidemia E78.5 Time Spent (min) 30
== END 2023-03-16 14:13 | disposition home or self-care (01) ==
PROVIDERS: PCP Nurse Practitioner Family; Visit Provider Dietitian, Registered
DX: E78.5 Hyperlipidemia, unspecified (principal)

== ENCOUNTER → 2023-03-16 13:31 | Outpatient (BNVA) | payer BC, SELFPAY | PROVIDERS: Visit Provider Dietitian, Registered | DX: E11.9 Type 2 diabetes mellitus without complications (principal); E78.5 Hyperlipidemia, unspecified; Z71.3 Dietary counseling and surveillance | CPT/HCPCS: 97803 ==

== ENCOUNTER 2023-03-17 15:33 | Outpatient (AMB) | payer BC, SELFPAY ==
--- NOTE | 2023-03-17 15:34 | A.OFFPC_ITS ---
Vital Signs 03/17/23 15:38 Height 5 ft 8 in Weight 194 lb BMI 29.5 BP 140/90 H Blood Pressure Location Rt brachial Position Sitting Pulse 70 Pulse Source Pulse Oximeter Pulse Oximetry (%) 98 Oxygen Delivery Method Room Air Intake Visit Reasons: 6m follow up on ultrasound Allergies acetaminophen [From Percocet] Allergy (Severe, Verified 03/17/23 15:38) ANAPHYLAXIS eggplant Allergy (Severe, Verified 03/17/23 15:38) Itching, swelling, difficulty breathing oxycodone [Percocet] Allergy (Severe, Verified 03/17/23 15:38) Anaphylaxis celecoxib [Celebrex] Allergy (Unknown, Verified 03/17/23 15:38) unknown opiates Allergy (Unknown, Verified 03/17/23 15:38) unknown Medication List - Last Reconciled 03/17/23 by CRAIG VogelP- albuterol sulfate 90 mcg/actuation 1 inh inhalation QID PRN blood-glucose sensor (Dexcom G6 Sensor device) As directed blood-glucose transmitter (Dexcom G6 Transmitter device) As directed docosahexaenoic acid (Algal [place]-3 DHA) 200 mg PO DAILY 90 days epinephrine (EpiPen 2-Wong) 0.3 mg (0.3 mL) IM Q10M PRN 30 days ezetimibe 10 mg PO DAILY 90 days glucagon 3 mg/actuation (Baqsimi) 3 mg intranasal ONCE PRN 1 day lancets (OneTouch Delica Lancets) test blood sugar twice a day lisinopril 2.5 mg PO DAILY 90 days omega-3 acid ethyl esters 1 cap PO BID OneTouch Ultra Test (blood sugar diagnostic) Test blood sugar twice a day NS OneTouch Ultra2 Meter (blood-glucose meter) to test blood sugars as directed NS sildenafil 100 mg PO DAILY PRN 30 days tirzepatide (Mounjaro) 7.5 mg (0.5 mL) subcut QWEEK 60 days Tobacco use date assessed: 09/15/22 HPI 6m follow up on ultrasound HPI Details Dyslipidemia: On zetia 10mg and omega-3 acid ethyl esters bid. Will order labs. Denies chest pain, shortness of breath, and dizziness. Pt is a diabetic, sees endo. Due for PSA, will order. Denies dribbling with urination, weak stream, and nocturia.Renal cysts: Pt had a recent US that showed bilat renal cysts (comparison from 2020 US). He denies any hematuria. [facility] Medical History Diverticulosis Elevated cholesterol DM type 2 (diabetes mellitus, type 2) Surgical History Hx of colonoscopy [place] teeth extracted H/O vasectomy Family History Mother No problems noted. Father Colon cancer Social History Housing: House Patient Tobacco Use Status: Never used Tobacco e-Cigarette/Vaping Use: Never Used Second Hand Smoke Exposure: No Current occupational status: employed Current occupation: left handed Cognitive needs: No Hearing needs: No Vision needs: No Questionnaire Thrive Questionnaire Date Thrive assessed: 09/23/21 TIMMY-7 AMB Questionnaire TIMMY-7 Date TIMMY - 7 assessed: 09/23/21 Source: Developed by Drs. Suraj Strong, Ewa Shearer, Mahamed Parkinson and colleagues, with an educational nigel from [employer]. Review of Systems Const Reports as per HPI Physical exam (Primary Care) Vital Signs: Last Vital Signs Pulse 70 03/17/23 15:38 BP 140/90 H 03/17/23 15:38 Pulse Ox 98 03/17/23 15:38 Oxygen Delivery Method Room Air 03/17/23 15:38 BMI result Body Mass Index 29.5 Tobacco/Smoking Status: Tobacco use Status Tobacco use date assessed 09/15/22 03/17/23 15:40 Patient Tobacco Use Status Never used Tobacco 03/17/23 15:40 e-Cigarette/Vaping Use Never Used 03/17/23 15:40 Thrive Assessment: Date of Thrive Assessment Date Thrive assessed 09/23/21 03/17/23 15:40 Const General: cooperative Orientation/consciousness: patient oriented x3 Resp Effort & Inspection: normal respiratory effort Auscultation: clear to auscultation bilaterally Cardio Rate: regular rate Rhythm: regular rhythm Heart sounds: S1 normal heart sound present and S2 normal heart sound present General: Yes no CVA tenderness Back/Spine/Pelvis Back: no CVA tenderness Neuro General: patient oriented x3 Psych Appearance: grossly normal Mental Status: mental status grossly normal Speech and movement: Normal speech and movement present Affect: normal affect Attitude: cooperative Thought process: Normal thought process present Thought content: Normal thought content present Insight: Good insight present (Psych) Judgement: Good judgement present (Psych) Assessment and Plan Assessment & Plan (1) Screening for prostate cancer: Code(s): Z12.5 - Encounter for screening for malignant neoplasm of prostate (2) Dyslipidemia: Code(s): E78.5 - Hyperlipidemia, unspecified (3) Diabetes: Code(s): E11.9 - Type 2 diabetes mellitus without complications (4) Renal cyst: Code(s): N28.1 - Cyst of kidney, acquired Plan The patient agreed to the use of a director medical science for this encounter. Scribed for RAYRAY Soliz-NIRU by Val Irvin director medical science, on 03/17/2023 at 15:50 EST. Orders: Orders Prostate Specific Antigen Scr Today Z12.5 - Encounter for screening for malignant neoplasm of prostate Comprehensive Met. Panel Today E11.9 - Type 2 diabetes mellitus without complications, E78.5 - Hyperlipidemia, unspecified TSH reflex Free T4 Today E11.9 - Type 2 diabetes mellitus without complications, E78.5 - Hyperlipidemia, unspecified Complete Blood Count Auto Diff Today E11.9 - Type 2 diabetes mellitus without complications, E78.5 - Hyperlipidemia, unspecified UA CC w/rflx Micro + Cult Today E11.9 - Type 2 diabetes mellitus without complications, E78.5 - Hyperlipidemia, unspecified Coding Level of Care Code Est Pt Level 3 (79999) Diagnoses Screening for prostate cancer Z12.5 Dyslipidemia E78.5 Diabetes E11.9 Renal cyst N28.1
[2023-03-17 15:38] VITALS: BP 140/90; PULSE 70; O2SAT 98; BMI 29.5
== END 2023-03-17 16:52 | disposition home or self-care (01) ==
PROVIDERS: Visit Provider Nurse Practitioner Family
DX: Z12.5 Encounter for screening for malignant neoplasm of prostate (principal); E78.5 Hyperlipidemia, unspecified; E11.9 Type 2 diabetes mellitus without complications; N28.1 Cyst of kidney, acquired
CPT/HCPCS: 99213

== ENCOUNTER 2023-05-11 12:53 | Outpatient (AMB) | payer BC, SELFPAY ==
--- NOTE | 2023-05-11 12:59 | MHC.OFFVIS ---
Intake Vital Signs 05/11/23 13:01 Height 5 ft 8 in Weight 182 lb 6 oz BMI 27.7 BP 128/64 Blood Pressure Location Lt brachial Position Sitting Pulse 99 Pulse Source Pulse Oximeter Pulse Oximetry (%) 97 Oxygen Delivery Method Room Air Intake Visit Reasons: [id number] Intake Note: Pt presents today to establish care for ALANA . states he snores , he works alot. Allergies acetaminophen [From Percocet] Allergy (Severe, Verified 05/11/23 13:04) ANAPHYLAXIS eggplant Allergy (Severe, Verified 05/11/23 13:04) Itching, swelling, difficulty breathing oxycodone [Percocet] Allergy (Severe, Verified 05/11/23 13:04) Anaphylaxis celecoxib [Celebrex] Allergy (Unknown, Verified 05/11/23 13:04) unknown opiates Allergy (Unknown, Verified 05/11/23 13:04) unknown HPI HPI Comments History of Present Illness Details 52 y/o male patient presents for new in-person visit for sleep consultation. Pt reports snoring, and feels tired all the time. He was evaluated by ENT but was told that no deviated septum. He also checked labs but all the result was WNL. He was recently diagnsed with T2DM but manages well, and now his A1C was under 6. Sleep questionnaire: Have you ever been diagnosed with a sleep disorder? No. Have you ever had a sleep study in the past? No. Have you ever been treated for a sleep disorder? No. Do you take medications for a sleep disorder? No. Do you snore? Yes. Do you wake up gasping at night? No. Do you have episodes of apneas? No. If yes, are they witnessed? No. Do you have episodes of nocturnal chest pain or dyspnea? No. Do you have difficulty initiating sleep? No. Do you have difficulty maintaining sleep? No. Do you wake up tired? Yes. Do you have headaches upon awakening? No. Do you wake up with dry mouth or throat? No. Do you have GERD? No. Do you have nocturia? No. Do you have nocturnal leg cramps? No. Do you have symptoms of restless legs? No. Do you act out your dreams? No. Sleep hygiene questionnaire: What is your usual sleep routine? Usual bedtime is at 10 pm ; Usual wake up time is at 4 am. Do you take naps? No. Is your sleep environment cool, dark, and quiet? Yes. Do you exercise? Walking. Do you take caffeine or other stimulants? Tea in the morning. Do you use electronics in bed? No. What is your work schedule? 6 am-7:30 pm. Hypersomnolence questionnaire: Do you have daytime tiredness or fatigue? Yes. Do you easily fall asleep when inactive? No. Have you ever had episodes of sudden weakness? No. Have you ever had episodes of sudden weakness associated with strong emotions? No PFSH Medical History Diverticulosis Elevated cholesterol DM type 2 (diabetes mellitus, type 2) Surgical History Hx of colonoscopy [place] teeth extracted H/O vasectomy Family History Mother No problems noted. Father Colon cancer Social History Housing: House Patient Tobacco Use Status: Never used Tobacco e-Cigarette/Vaping Use: Never Used Second Hand Smoke Exposure: No Current occupational status: employed Current occupation: left handed Cognitive needs: No Hearing needs: No Vision needs: No Review of Systems ENT Reports Normal hearing present Neuro Reports Normal hearing present Physical Exam Vital Signs: Last Vital Signs Pulse 99 05/11/23 13:01 BP 128/64 05/11/23 13:01 Pulse Ox 97 05/11/23 13:01 Oxygen Delivery Method Room Air 05/11/23 13:01 BMI result Body Mass Index 27.7 Const General: cooperative Nutritional Appearance: overweight Orientation/consciousness: patient oriented x3 HEENT Teeth and gingiva: other (mallampati grade 4) Neck Neck: Yes full ROM and Yes supple Resp Effort & Inspection: able to speak in complete sentences Neuro General: patient oriented x3, gait normal and moves all extremities Cranial nerves: Yes Bilaterally intact EOM present, Yes Normal facial strength present, Yes Midline tongue present, Yes Symmetric palate elevation present, Yes Normal hearing present and Yes Ability to bilaterally elevate shoulders present Cognition (Neuro): normal cognition Gait exam (Neuro): Normal gait present Motor exam (neuro): 5/5 motor strength present throughout, Pronator motor function not present and no tremor noted Psych Appearance: well kempt Mental Status: mental status grossly normal Speech and movement: Normal speech and movement present Affect: normal affect Attitude: cooperative Assessment & Plan Assessment & Plan (1) Sleep apnea: Code(s): G47.30 - Sleep apnea, unspecified (2) Snoring: Code(s): R06.83 - Snoring (3) Daytime sleepiness: Code(s): R40.0 - Somnolence Plan Pt is advised to undergo home sleep study to assess for sleep apnea. Will f/u with pt after study to discuss results and appropriate treatment options. Continue to manage wt with healthy diet. Pt to call with any worsening concerns or questions. Coding Level of Care Code New Pt Level 3 (05061) Diagnoses Sleep apnea G47.30 Snoring R06.83 Daytime sleepiness R40.0
[2023-05-11 13:01] VITALS: BP 128/64; PULSE 99; O2SAT 97; BMI 27.7
== END 2023-05-11 13:27 | disposition home or self-care (01) ==
PROVIDERS: PCP Nurse Practitioner Family; Visit Provider Nurse Practitioner Family
DX: G47.30 Sleep apnea, unspecified (principal); R06.83 Snoring; R40.0 Somnolence
CPT/HCPCS: 99203; 99213

== ENCOUNTER → 2023-05-11 12:53 | Outpatient (BNVA) | payer BC, SELFPAY | PROVIDERS: PCP Nurse Practitioner Family; Visit Provider Nurse Practitioner Family ==

== ENCOUNTER 2023-08-02 06:09 | Outpatient (REF) | payer BC, SELFPAY ==
[2023-08-02 06:36] LABS: MANUAL DIFF FLAG NO
[2023-08-02 07:21] LABS: Basophils Absolute Auto 0.1 X10*3/uL (0.0-0.2); Basophils Percent Auto 1.5 % (0-2); Eosinophils Absolute Auto 0.1 X10*3/uL (0.0-0.4); Eosinophils Percent Auto 2.6 % (0-4); Hematocrit 43.3 % (42.0-52.0); Hemoglobin 14.4 g/dl (14.0-18.0); Imm Gran Abs Auto 0.02 X10*3/uL (0.00-0.03); Imm Gran Pct Auto 0.4 % (0.0-0.4); Lymphocytes Absolute Auto 1.7 X10*3/uL (1.2-4.9); Lymphocytes Percent Auto 30.4 % (20-40); Mean Corpuscular HGB Conc 33.3 g/dl (31.0-36.0); Mean Corpuscular Hemoglobin 28.1 pg (27.0-33.0); Mean Corpuscular Volume 84.6 fL (80.0-98.0); Mean Platelet Volume 11.1 fL (9.4-12.4); Monocytes Absolute Auto 0.5 X10*3/uL (0.1-1.2); Monocytes Percent Auto 9.2 % (2-11); Neutrophils Absolute Auto 3.1 x10*3/uL (2.0-8.3); Neutrophils Percent Auto 55.9 % (45-73); Platelet Count 200 X10*3/uL (160-400); Red Blood Count 5.12 X10*6/uL (4.60-5.80); Red Cell Distribution Width 12.6 % (11.0-16.0); White Blood Count 5.5 X10*3/uL (4.8-10.8)
[2023-08-02 07:30] LABS: Estimated Average Glucose 117 mg/dL; Hemoglobin A1c % 5.7 % (<6.0)
[2023-08-02 08:00] LABS: Alanine Aminotransferase 52 U/L (0-40); Albumin Level 4.3 g/dL (3.5-5.0); Alkaline Phosphatase 55 U/L (39-117); Anion Gap 9 (12-20); Aspartate Amino Transferase 26 U/L (5-37); Bilirubin Total 0.6 mg/dL (0.0-1.0); Blood Urea Nitrogen 13 mg/dL (9-16); Carbon Dioxide 27 mmol/L (22-29); Chloride 106 mmol/L (96-108); Cholesterol 220 mg/dL (<200); Estimated Glomerular Filt Rate > 60; Glucose Fasting 105 mg/dL (60-99); HDL Cholesterol 43 mg/dL (>40); LDL Cholesterol Calculated 135 mg/dL (<100); Potassium 4.2 mmol/L (3.3-5.1); Sodium 138 mmol/L (135-145); Total Protein 7.3 g/dL (6.5-8.0); Triglycerides 211 mg/dL (<150)
[2023-08-02 08:08] LABS: Prostate Specific Antigen Scr 0.91 ng/mL (<0.05-4.0)
[2023-08-02 08:16] LABS: TSH reflex Free T4 1.96 uIU/mL (0.32-4.0)
[2023-08-02 08:55] LABS: Appearance Urine Clear; Color Urine Yellow; Glucose Urine UA Negative (Negative); Leukocyte Esterase Urine Negative (Negative); Nitrite Urine Negative (Negative); PH 5.5 (5.0-9.0); Specific Gravity - Urine 1.025 (1.005-1.025); UMIC TRIGGER UACC YES; Urine Blood Moderate (2+) (Negative); Urine Ketones Negative (Negative); Urine Protein Trace mg/dL (Neg-Trace)
[2023-08-02 09:09] LABS: Bacteria Urine None Seen (None Seen); Hyaline Casts Urine 0-2 /LPF (0-2); Squamous Epithelial Cell Urine 0-2 /HPF (0-2); WBC Urine 0-5 /HPF (0-5)
== END 2023-08-02 06:10 | disposition home or self-care (01) ==
LOC: HO.LAB 06:09
PROVIDERS: PCP Nurse Practitioner Family; Visit Provider Nurse Practitioner Family
DX: Z00.00 Encounter for general adult medical examination without abnormal findings (principal); Z12.5 Encounter for screening for malignant neoplasm of prostate; E11.9 Type 2 diabetes mellitus without complications
CPT/HCPCS: 36415; 80053; 80061; 81001; 83036; 84153; 84443; 85025

== ENCOUNTER 2023-08-03 13:32 | Outpatient (AMB) | payer BC, SELFPAY ==
[2023-08-03 13:38] VITALS: BP 120/86; PULSE 88; BMI 28.7
--- NOTE | 2023-08-03 13:38 | MHC.OFFVIS ---
Intake Vital Signs 08/03/23 13:38 Height 5 ft 8 in Weight 188 lb 7.924 oz BMI 28.7 BP 120/86 Blood Pressure Location Lt brachial Position Sitting Pulse 88 Pulse Source Pulse Oximeter Intake Visit Reasons: f/u Type 2 DM Intake Note: Patient presents today to follow up on D2MT. Last Diabetic Eye exam: 01/2023 Last Podiatry Visit: 06/2023 Random Glucose: 120 mg/dl HgA1C: 5.7% 08/02/23 Home Health Occupational Therapist Required: No Accompanied by: Self / Same As Patient Allergies acetaminophen [From Percocet] Allergy (Severe, Verified 08/03/23 13:46) ANAPHYLAXIS eggplant Allergy (Severe, Verified 08/03/23 13:46) Itching, swelling, difficulty breathing oxycodone [Percocet] Allergy (Severe, Verified 08/03/23 13:46) Anaphylaxis celecoxib [Celebrex] Allergy (Unknown, Verified 08/03/23 13:46) unknown opiates Allergy (Unknown, Verified 08/03/23 13:46) unknown Medication List - Last Reconciled 08/03/23 by Suraj Nathan MD albuterol sulfate 90 mcg/actuation 1 inh inhalation QID PRN blood-glucose meter,continuous (Dexcom G7 [place] Plant Operator) As directed blood-glucose sensor (Dexcom G7 Sensor device) As directed change every 10 days docosahexaenoic acid (Algal [place]-3 DHA) 200 mg PO DAILY 90 days epinephrine (EpiPen 2-Wong) 0.3 mg (0.3 mL) IM Q10M PRN 30 days ezetimibe 10 mg PO DAILY 90 days glucagon 3 mg/actuation (Baqsimi) 3 mg intranasal ONCE PRN 1 day lancets (OneTouch Delica Lancets) test blood sugar twice a day lisinopril 2.5 mg PO DAILY 90 days omega-3 acid ethyl esters 1 cap PO BID OneTouch Ultra Test (blood sugar diagnostic) Test blood sugar twice a day NS OneTouch Ultra2 Meter (blood-glucose meter) to test blood sugars as directed NS sildenafil 100 mg PO DAILY PRN 30 days tirzepatide (Mounjaro) 7.5 mg (0.5 mL) subcut QWEEK 60 days HPI HPI Comments History of Present Illness Details 52 YO M who is seen in consultation for T2DM at the request of PCP. Initially diagnosed with T2DM in 09/15/21. Was initially started on treatment with metformin. Current regimen metformin 500 mg BID (not taking) Mounjaro 7.5 mg Q wkly . Dexcom download shows using the sensor 93% average glucose to be 175 with G mi of 7.5% and standard deviation of 24 . with 65% range,35 hyperglycemia Reports low sugars none. No Family history of T2DM . Has eyes checked yearly, last eye exam next wk appt 6 mos ago , denies retinopathy. Denies neuropathy, , does not sees podiatry. Denies nephropathy, on GLADIS/ARB. Not HLD, on Zetia . . Denies CAD. [facility] diabetes education and varitypist here [facility] Medical History Diverticulosis Elevated cholesterol DM type 2 (diabetes mellitus, type 2) Surgical History Hx of colonoscopy [place] teeth extracted H/O vasectomy Family History Mother No problems noted. Father Colon cancer Social History Housing: House Comment: left eye, better Patient Tobacco Use Status: Never used Tobacco e-Cigarette/Vaping Use: Never Used Second Hand Smoke Exposure: No Current occupational status: employed Current occupation: left handed Cognitive needs: No Hearing needs: No Vision needs: No Physical Exam Vital Signs: Last Vital Signs Pulse 88 08/03/23 13:38 BP 120/86 08/03/23 13:38 BMI result Body Mass Index 28.7 Absence of Cushingoid features. Absence of acromegalic features. Neck exam reveals nl size thyroid about 15 gms. No thyroid nodules palpable. No carotid bruits present. Lungs CTA. Heart S1 S2, Reg R/R. No M/R/ G. Skin exam reveals absence of vitiligo or acanthosis nigricans. Abdominal exam reveals Soft NT/ND with NA BS. No organomegaly present. Neck Other: . Extrem Other: Visual exam of foot performed. No ulcerations or open lesions. No onchomycosis, no callouses.Pulses 2 + distally Sensation intact to monofilament exam. Vibratory sensation sensed is intact with 128 Hz tuning fork Results Reviewed Results Reviewed: Laboratory Last Values Glucose (Clinic) 120 mg/dL (60-115) H 08/03/23 13:45 Assessment & Plan Assessment & Plan (1) DM (diabetes mellitus) type II uncontrolled with eye manifestation: Code(s): E11.39 - Type 2 diabetes mellitus with other diabetic ophthalmic complication; E11.65 - Type 2 diabetes mellitus with hyperglycemia Plan: This is a 51-year-old male with history of type 2 diabetes being treated with metformin and Mounjaro with excellent improved glycemic control and no known microvascular or macrovascular complications. Plan is to continue the current regimen. AtThis point, patient returned to the care of his primary care provider I returned back to endocrinology if his HbA1c deteriorate Coding Level of Care Code Est Pt Level 3 (96918) Diagnoses DM (diabetes mellitus) type II uncontrolled with eye manifestation E11.39; E11.65
[2023-08-03 13:49] LABS: Glucose, Whole Blood 120 mg/dL (60-115)
== END 2023-08-03 14:16 | disposition home or self-care (01) ==
PROVIDERS: PCP Nurse Practitioner Family; Visit Provider Internal Medicine Endocrinology, Diabetes & Metabolism
DX: E11.39 Type 2 diabetes mellitus with other diabetic ophthalmic complication (principal); E11.65 Type 2 diabetes mellitus with hyperglycemia
CPT/HCPCS: 99213

== ENCOUNTER → 2023-08-03 13:32 | Outpatient (BNVA) | payer BC, SELFPAY | PROVIDERS: Visit Provider Internal Medicine Endocrinology, Diabetes & Metabolism | DX: E11.39 Type 2 diabetes mellitus with other diabetic ophthalmic complication (principal); E11.65 Type 2 diabetes mellitus with hyperglycemia; Z79.84 Long term (current) use of oral hypoglycemic drugs | CPT/HCPCS: 82947 ==

== ENCOUNTER → 2023-08-04 13:51 | Outpatient (REF) | payer BC, SELFPAY | LOC: HO.SL 13:51 | PROVIDERS: PCP Nurse Practitioner Family; Visit Provider Nurse Practitioner Family | DX: G47.33 Obstructive sleep apnea (adult) (pediatric) (principal); R40.0 Somnolence; R06.83 Snoring | CPT/HCPCS: 95806 ==

== ENCOUNTER → 2023-08-04 14:00 | Outpatient (BNV) | payer BC, SELFPAY | PROVIDERS: PCP Nurse Practitioner Family; Visit Provider Internal Medicine | DX: G47.33 Obstructive sleep apnea (adult) (pediatric) (principal) | CPT/HCPCS: 95806 ==

== ENCOUNTER → 2023-09-04 20:30 | Outpatient (REF) | payer BC, SELFPAY | LOC: HO.SL 20:30 | PROVIDERS: Visit Provider Nurse Practitioner Family | DX: G47.33 Obstructive sleep apnea (adult) (pediatric) (principal); G47.34 Idiopathic sleep related nonobstructive alveolar hypoventilation | CPT/HCPCS: 95811 ==

== ENCOUNTER → 2023-09-04 20:30 | Outpatient (BNV) | payer BC, SELFPAY | PROVIDERS: Visit Provider Psychiatry & Neurology Neurology | DX: G47.33 Obstructive sleep apnea (adult) (pediatric) (principal) | CPT/HCPCS: 95811 ==

== ENCOUNTER 2023-09-12 13:27 | Outpatient (AMB) | payer BC, SELFPAY ==
--- NOTE | 2023-09-12 13:59 | A.OFFVIS_ITS ---
Intake Vital Signs 09/12/23 14:08 Height 5 ft 8 in Weight 179 lb 2 oz BMI 27.2 BP 130/74 Blood Pressure Location Lt brachial Position Sitting Pulse 94 Pulse Source Pulse Oximeter Pulse Oximetry (%) 96 Oxygen Delivery Method Room Air Intake Visit Reasons: 4month f/u ALANA - CONF Intake Note: Patient presents for 4 month f/u. Allergies acetaminophen [From Percocet] Allergy (Severe, Verified 09/12/23 14:07) ANAPHYLAXIS eggplant Allergy (Severe, Verified 09/12/23 14:07) Itching, swelling, difficulty breathing oxycodone [Percocet] Allergy (Severe, Verified 09/12/23 14:07) Anaphylaxis celecoxib [Celebrex] Allergy (Unknown, Verified 09/12/23 14:07) unknown opiates Allergy (Unknown, Verified 09/12/23 14:07) unknown HPI HPI Comments History of Present Illness Details 52 y/o male patient presents for follow up of sleep study. The home sleep study result was significant for a severe degree of sleep apnea. The total sleep time AHI was 29, predominantly in supine position. Supine AHI was 49/hr, lateral position AHI was 8.2, snoring for 26% of the sleep time. Nocturnal hypoxemia with average O2 sat 91%, lowest O2 sat was 69%, O2 sat below 88% for 54 min. Pt underwent CPAP titration study on September 03, the result is pending. He prefers medium nasal mask. [facility] Medical History Diverticulosis Elevated cholesterol DM type 2 (diabetes mellitus, type 2) Surgical History Hx of colonoscopy [place] teeth extracted H/O vasectomy Family History Mother No problems noted. Father Colon cancer Social History Housing: House Comment: left eye, better Patient Tobacco Use Status: Never used Tobacco e-Cigarette/Vaping Use: Never Used Second Hand Smoke Exposure: No Current occupational status: employed Current occupation: left handed Cognitive needs: No Hearing needs: No Vision needs: No Review of Systems Const All systems reviewed & are unremarkable except as noted in HPI and below ENT Reports Normal hearing present Neuro Reports Normal hearing present Physical Exam Vital Signs: Last Vital Signs Pulse 94 09/12/23 14:08 BP 130/74 09/12/23 14:08 Pulse Ox 96 09/12/23 14:08 Oxygen Delivery Method Room Air 09/12/23 14:08 BMI result Body Mass Index 27.2 Const General: cooperative Nutritional Appearance: overweight Orientation/consciousness: patient oriented x3 HEENT Teeth and gingiva: other (mallampati grade 4) Neck Neck: Yes full ROM and Yes supple Resp Effort & Inspection: able to speak in complete sentences Neuro General: patient oriented x3, gait normal and moves all extremities Cranial nerves: Yes Bilaterally intact EOM present, Yes Normal facial strength present, Yes Midline tongue present, Yes Symmetric palate elevation present, Yes Normal hearing present and Yes Ability to bilaterally elevate shoulders present Cognition (Neuro): normal cognition Gait exam (Neuro): Normal gait present Motor exam (neuro): 5/5 motor strength present throughout, Pronator motor function not present and no tremor noted Psych Appearance: well kempt Mental Status: mental status grossly normal Speech and movement: Normal speech and movement present Affect: normal affect Attitude: cooperative Assessment & Plan Assessment & Plan (1) ALANA (obstructive sleep apnea): Comment: Severe degree of sleep apnea. The AHI was 29/hr, supine AHI was 49/hr, and oxygen aurelio was 69%. Code(s): G47.33 - Obstructive sleep apnea (adult) (pediatric) (2) Nocturnal hypoxemia: Code(s): G47.34 - Idiopathic sleep related nonobstructive alveolar hypoventilation Plan The CPAP titraton study result is pending. Will send CPAP order when the study result is available. Stressed compliance, use CPAP nightly and more than 4 hrs. Refer patient to ENT for evaluation of structural reasons for severe degree of sleep apnea and hypoxemia. Orders: Referrals Ear/Nose/Throat Referral G47.33 - Obstructive sleep apnea (adult) (pediatric) Coding Level of Care Code Est Pt Level 3 (51439) Diagnoses AALNA (obstructive sleep apnea) G47.33 Nocturnal hypoxemia G47.34
[2023-09-12 14:08] VITALS: BP 130/74; PULSE 94; O2SAT 96; BMI 27.2
== END 2023-09-12 14:40 | disposition home or self-care (01) ==
PROVIDERS: PCP Nurse Practitioner Family; Visit Provider Nurse Practitioner Family
DX: G47.33 Obstructive sleep apnea (adult) (pediatric) (principal); G47.34 Idiopathic sleep related nonobstructive alveolar hypoventilation
CPT/HCPCS: 99213

== ENCOUNTER → 2023-09-12 13:27 | Outpatient (BNVA) | payer BC, SELFPAY | PROVIDERS: PCP Nurse Practitioner Family; Visit Provider Nurse Practitioner Family ==

== ENCOUNTER 2023-09-21 15:43 | Outpatient (AMB) | payer BC, SELFPAY ==
[2023-09-21 15:44] VITALS: BP 124/80; PULSE 88; O2SAT 98; BMI 27.1
--- NOTE | 2023-09-21 15:44 | MHC.PC.OV ---
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 Accompanied by: Self / Same As Patient Allergies acetaminophen [From Percocet] Allergy (Severe, Verified 09/21/23 17:24) ANAPHYLAXIS eggplant Allergy (Severe, Verified 09/21/23 17:24) Itching, swelling, difficulty breathing oxycodone [Percocet] Allergy (Severe, Verified 09/21/23 17:24) Anaphylaxis celecoxib [Celebrex] Allergy (Unknown, Verified 09/21/23 17:24) unknown opiates Allergy (Unknown, Verified 09/21/23 17:24) unknown Medication List - Last Reconciled 09/21/23 by Rob Huff, DARKLIGHT INSPECTOR- albuterol sulfate 90 mcg/actuation 1 inh inhalation QID PRN blood-glucose meter,continuous (Dexcom G7 Plaster Molder) As directed blood-glucose sensor (Dexcom G7 Sensor device) DIRECTED CHANGE EVERY 10 DAYS docosahexaenoic acid (Algal Zillah-3 DHA) 200 mg PO DAILY 90 days epinephrine (EpiPen 2-Wong) 0.3 mg (0.3 mL) IM Q10M PRN 30 days ezetimibe 10 mg PO DAILY 90 days glucagon 3 mg/actuation (Baqsimi) 3 mg intranasal ONCE PRN 1 day lancets (OneTouch Delica Lancets) test blood sugar twice a day lisinopril 2.5 mg PO DAILY 90 days omega-3 acid ethyl esters 1 cap PO BID OneTouch Ultra Test (blood sugar diagnostic) Test blood sugar twice a day NS OneTouch Ultra2 Meter (blood-glucose meter) to test blood sugars as directed NS sildenafil 100 mg PO DAILY PRN 30 days tirzepatide (Mounjaro) 7.5 mg (0.5 mL) subcut QWEEK 90 days Tobacco use date assessed: 09/21/23 Dental Screening Dental Screen Date: 09/21/23 Did you have a dental visit in the last 12 months?: Yes Did you have a dental problem in the last 6 months where you did not have access to dental care?: No Was dental information given to patient?: Patient has dentist HPI PE HPI Details Pt is here for a PE. Labs were already performed. Colon screen is up to date. PSA is up to date. Denies dribbling with urination, weak stream, and frequent nocturia. Pt is seeing sleep medicine due to sleep apnea. Pt is a diabetic, sees endo. Pt had a previous renal US which showed bilat renal cysts. Will repeat US in February. Pt is on zetia, does not want to take a statin (dyslipidemia). Liver enzymes elevated, though trending down, Hx of fatty liver, pt knows a lot has to do with his diet. Pt reports his eye exam is up to date and he sees podiatry [facility] Medical History Diverticulosis Elevated cholesterol DM type 2 (diabetes mellitus, type 2) Surgical History Hx of colonoscopy [place] teeth extracted H/O vasectomy Family History Mother No problems noted. Father Colon cancer Social History Housing: House Comment: left eye, better Patient Tobacco Use Status: Never used Tobacco e-Cigarette/Vaping Use: Never Used Second Hand Smoke Exposure: No Current occupational status: employed Current occupation: left handed Cognitive needs: No Hearing needs: No Vision needs: No Questionnaire PHQ-9 Over the last 2 weeks, how often have you been bothered by any of the following problems? 1. Little interest or pleasure in doing things: not at all 2. Feeling down, depressed, or hopeless: not at all 3. Trouble falling or staying asleep, or sleeping too much: not at all 4. Feeling tired or having little energy: nearly every day 5. Poor appetite or overeating: not at all 6. Feeling bad about yourself - or that you are a failure or have let yourself or your family down: not at all 7. Trouble concentrating on things, such as reading the newspaper or watching television: not at all 8. Moving or speaking so slowly that other people could have noticed. Or the opposite - being so fidgety or restless that you have been moving around a lot more than usual: not at all 9. Thoughts that you would be better off or of hurting yourself in some way: not at all Total score: 3 Depression Screening Interpretation: Negative Depression Screening Done: Yes 25623 - PHQ-9 Billing: Yes Source: Developed by Drs. Suraj Strong, Ewa Shearer, Mahamed Parkinson and colleagues, with an educational nigel from [employer]. Thrive Questionnaire Date Thrive assessed: 09/21/23 I am a: Patient What is your living situation today?: I have a steady place to live Within the past 12 months, did the food you bought not last and you didn't have the money to get more?: Never true Within the past 12 months, did you worry whether your food would run out before you got money to buy more?: Never true Do you have trouble paying for medicines?: No Do you have trouble getting transportation to medical appointments?: No Do you have trouble paying your heating and electricity bill?: No Do you have trouble taking care of your child, family member or friend?: No Do you have trouble with day-to-day activities such as bathing, preparing meals, shopping, managing finances, etc.?: No Are you currently unemployed and looking for a job?: No Are you interested in more education?: No Please select the resources that you would like help with: None Currently or been in a relationship where the following occur: no concerns reported THRIVE Score: 0 AUDIT C Alcohol Use Questionnaire (AUDIT-C) 1. How often do you have a drink containing alcohol?: Never 2. How many drinks containing alcohol do you have on a typical day when you are drinking?: 1 or 2 3. How often do you have six or more drinks on one occasion?: Never Total Score: 0 Score Reviewed/Action Taken: Yes TIMMY-7 AMB Questionnaire TIMMY-7 Date TIMMY - 7 assessed: 09/21/23 Feeling nervous, anxious, or on edge: 0 = Not at all Not being able to stop or control worryin = Not at all Worrying too much about different things: 0 = Not at all Trouble relaxin = Not at all Being so restless that it is hard to sit still: 0 = Not at all Becoming easily annoyed or irritable: 0 = Not at all Feeling afraid as if something awful might happen: 0 = Not at all Total TIMMY-7 score (0-4 normal; 5-9 mild; 10-14 moderate; 15-21 severe): 0 Source: Developed by Drs. Suraj Strong, Ewa Shearer, Mahamed Parkinson and colleagues, with an educational nigel from [employer]. TIMMY-7 Assessment Billing TIMMY-7 Assessment Tool: TIMMY-7 Assessment 18064 Review of Systems Const Denies chills and Denies fever(s) Eyes Denies blurry vision ENT Denies vertigo, Denies dizziness and Denies sore throat Card Denies chest pain at rest, Denies chest pain with activity, Denies diaphoresis, Denies dyspnea and Denies dyspnea on exertion Resp Denies cough, Denies dyspnea, Denies dyspnea on exertion and Denies wheezing GI Denies abdominal pain, Denies melena, Denies hematochezia, Denies constipation, Denies diarrhea and Denies loose stools Denies hematuria Musc Denies numbness and Denies tingling Skin/Breast Denies lesions Neuro Denies vertigo, Denies dizziness, Denies numbness and Denies tingling Psych Denies anxiety, Denies depression, Denies homicidal ideation, Denies suicidal ideation and Denies other (substance abuse) Aller/Immun Denies wheezing Physical exam (Primary Care) Vital Signs: Last Vital Signs Pulse 88 09/21/23 15:44 BP 124/80 09/21/23 15:44 Pulse Ox 98 09/21/23 15:44 Oxygen Delivery Method Room Air 09/21/23 15:44 BMI result Body Mass Index 27.1 Tobacco/Smoking Status: Tobacco use Status Tobacco use date assessed 09/21/23 09/21/23 15:51 Patient Tobacco Use Status Never used Tobacco 09/21/23 15:51 e-Cigarette/Vaping Use Never Used 09/21/23 15:51 PHQ-9: PHQ-9 Score PHQ-9: Total score 3 09/21/23 16:17 Depression Screening Interpretation: Negative Thrive Assessment: Date of Thrive Assessment Date Thrive assessed 09/21/23 09/21/23 15:51 Currently or been in a relationship where the following occur: no concerns reported Const General: cooperative Nutritional Appearance: well nourished Orientation/consciousness: patient oriented x3 HENMT Head: Yes normal to inspection, Yes normocephalic and Yes atraumatic Ears: TM's normal bilaterally Eyes General: appearance normal, both eyes and all related structures Alignment and Position: alignment normal and position normal Neck Neck: Yes normal visual inspection and Yes no lymphadenopathy Thyroid: Thyroid normal Resp Effort & Inspection: normal respiratory effort Auscultation: clear to auscultation bilaterally Cardio Rate: regular rate Rhythm: regular rhythm Heart sounds: S1 normal heart sound present, S2 normal heart sound present and no murmurs GI Palpation (GI): Soft to palpation and nontender Auscultation: normal bowel sounds Male General Exam: Yes normal external exam Penis: normal penis Scrotum: scrotum normal, testes descended bilaterally and no inguinal hernias Testes: no testicular mass Skin Rashes: no rashes Neuro General: patient oriented x3, moves all extremities, no focal motor deficits and deep tendon reflexes 2+ bilaterally Romberg Test: Negative Psych Appearance: grossly normal Mental Status: mental status grossly normal Speech and movement: Normal speech and movement present Affect: normal affect Attitude: cooperative Thought process: Normal thought process present Thought content: Normal thought content present Insight: Good insight present (Psych) Judgement: Good judgement present (Psych) Assessment and Plan Assessment & Plan (1) Renal cyst: Code(s): N28.1 - Cyst of kidney, acquired Plan: US ordered (2) Diabetes: Code(s): E11.9 - Type 2 diabetes mellitus without complications Plan: sees endo, stable A1c (3) Physical exam: Code(s): Z00.00 - Encounter for general adult medical examination without abnormal findings (4) Fatty liver: Code(s): K76.0 - Fatty (change of) liver, not elsewhere classified Plan: liver enzymes trending down, Hx of fatty liver, educated on importance of diet Plan The patient agreed to the use of a medical instrument technician for this encounter. Scribed for BRANDIN Soliz by Val Irvin medical instrument technician, on 09/21/2023 at 16:15 EST. Orders: Orders US renal BI 5 Months N28.1 - Cyst of kidney, acquired Complete Blood Count Auto Diff Today E11.9 - Type 2 diabetes mellitus without complications Comprehensive [place]. Panel Fast Today E11.9 - Type 2 diabetes mellitus without complications Lipid Panel Today E11.9 - Type 2 diabetes mellitus without complications TSH reflex Free T4 Today E11.9 - Type 2 diabetes mellitus without complications UA CC w/rflx Micro + Cult Today E11.9 - Type 2 diabetes mellitus without complications Microalbumin, Random (w Creat) Today E11.9 - Type 2 diabetes mellitus without complications Coding Level of Care Code Est Pt Prev Care 40-64y(33134) Diagnoses Renal cyst N28.1 Diabetes E11.9 Physical exam Z00.00 Fatty liver K76.0 Additional Codes TIMYM-7 Assessment Billing - TIMMY-7 Assessment Tool: TIMMY-7 Assessment 91182 ([id number])
== END 2023-09-21 16:36 | disposition home or self-care (01) ==
PROVIDERS: Visit Provider Nurse Practitioner Family
DX: N28.1 Cyst of kidney, acquired (principal); E11.9 Type 2 diabetes mellitus without complications; Z00.00 Encounter for general adult medical examination without abnormal findings; K76.0 Fatty (change of) liver, not elsewhere classified
CPT/HCPCS: 99396

== ENCOUNTER 2023-09-29 13:38 | Outpatient (AMB) | payer BC, SELFPAY ==
[2023-09-29 13:45] VITALS: BMI 27.1
--- NOTE | 2023-09-29 13:45 | A.OFFVIS_ITS ---
Intake VS Expanded 09/29/23 13:45 Height 5 ft 8 in Weight 178 lb 2 oz BMI 27.1 Intake Visit Reasons: T2DM/LVM Allergies acetaminophen [From Percocet] Allergy (Severe, Verified 09/21/23 17:24) ANAPHYLAXIS eggplant Allergy (Severe, Verified 09/21/23 17:24) Itching, swelling, difficulty breathing oxycodone [Percocet] Allergy (Severe, Verified 09/21/23 17:24) Anaphylaxis celecoxib [Celebrex] Allergy (Unknown, Verified 09/21/23 17:24) unknown opiates Allergy (Unknown, Verified 09/21/23 17:24) unknown HPI Nutrition Presentation Details Pt presents for MNT f/u for T2DM Pt reports doing well, admits to diet indiscretion. Most Recent Diabetes Results: Cholesterol 220 mg/dL (<200) H 08/02/23 HDL Cholesterol 43 mg/dL (>40) 08/02/23 Triglycerides 211 mg/dL (<150) H 08/02/23 Creatinine 1.08 mg/dL (0.5-1.4) 08/02/23 Blood Urea Nitrogen 13 mg/dL (9-16) 08/02/23 Sodium 138 mmol/L (135-145) 08/02/23 Potassium 4.2 mmol/L (3.3-5.1) 08/02/23 Chloride 106 mmol/L (96-108) 08/02/23 Carbon Dioxide 27 mmol/L (22-29) 08/02/23 Calcium 9.0 mg/dL (8.4-10.2) 08/02/23 AST 26 U/L (5-37) 08/02/23 ALT 52 U/L (0-40) H 08/02/23 Total Protein 7.3 g/dL (6.5-8.0) 08/02/23 Albumin 4.3 g/dL (3.5-5.0) 08/02/23 [facility] Medical History Diverticulosis Elevated cholesterol DM type 2 (diabetes mellitus, type 2) Surgical History Hx of colonoscopy [place] teeth extracted H/O vasectomy Family History Mother No problems noted. Father Colon cancer Social History Housing: House Comment: left eye, better Patient Tobacco Use Status: Never used Tobacco e-Cigarette/Vaping Use: Never Used Second Hand Smoke Exposure: No Current occupational status: employed Current occupation: left handed Cognitive needs: No Hearing needs: No Vision needs: No Assessment & Plan Assessment & Plan (1) Dyslipidemia: Code(s): E78.5 - Hyperlipidemia, unspecified Plan: Reinforce low sat'd fat food concept, and fiber rich foods, following healthy plate method EST Kcal NEEDS as per [address] or: 6985-8467 kcal/d Wt used: 83 kg est protein needs as per 0.8-1.0 g/kg bw: 83 g g/d est fluid needs as per 25 ml/kg bw: 2075 ml/d Rec fiber: 10 g per day and gradually increase up to 28-35 or as tolerated Educate patient on: (R= Reviewed, V = verbalizes understanding N/R= Needs review N/A= not applicable) * Food sources of carbohydrates and serving adequate serving sizes : R V * Difference between complex carbohydrates and simple carbohydrates, role of fiber: R V * Differences between fats (MUFA/PUFA/saturated fats, trans fats) and food sources of various fats: R V * Food sources of sodium and salt and healthy modifications for heart health and kidney health: R v * Vitamins and minerals: R V * How to interpret food labels: R V * Healthy Plate method concept: R V * Physical activity: benefits and precaution: R V Patient Instructions: Resume following healthy plate method, choosing foods low in sat'd fats Coding Level of Care Code Nutr Indiv Subseq (05942) Diagnoses Dyslipidemia E78.5 Time Spent (min) 30
== END 2023-09-29 14:27 | disposition home or self-care (01) ==
PROVIDERS: PCP Nurse Practitioner Family; Visit Provider Dietitian, Registered
DX: E78.5 Hyperlipidemia, unspecified (principal)

== ENCOUNTER → 2023-09-29 13:38 | Outpatient (BNVA) | payer BC, SELFPAY | PROVIDERS: PCP Nurse Practitioner Family; Visit Provider Dietitian, Registered | DX: E78.5 Hyperlipidemia, unspecified (principal); E11.9 Type 2 diabetes mellitus without complications; Z71.3 Dietary counseling and surveillance | CPT/HCPCS: 97803 ==

== ENCOUNTER 2023-10-24 08:03 | Outpatient (AMB) | payer BC, SELFPAY ==
[2023-10-24 08:06] VITALS: BP 122/76; PULSE 80; TEMP 37; O2SAT 98; BMI 27.1
--- NOTE | 2023-10-24 08:06 | AM.OFFWIN_ITS ---
Intake Vital Signs 10/24/23 08:06 Height 5 ft 8 in Weight 178 lb BMI 27.1 BP 122/76 Blood Pressure Location Rt brachial Position Sitting Pulse 80 Pulse Source Pulse Oximeter Temp 98.6 F Temp Source Oral Pulse Oximetry (%) 98 Oxygen Delivery Method Room Air Intake Visit Reasons: EP ear pain (lobby) Intake Note: pt is here for bilateral ear pain, and back pain Patient Tobacco Use Status: Never used Tobacco Allergies acetaminophen [From Percocet] Allergy (Severe, Verified 10/24/23 08:06) ANAPHYLAXIS eggplant Allergy (Severe, Verified 10/24/23 08:06) Itching, swelling, difficulty breathing oxycodone [Percocet] Allergy (Severe, Verified 10/24/23 08:06) Anaphylaxis celecoxib [Celebrex] Allergy (Unknown, Verified 10/24/23 08:06) unknown opiates Allergy (Unknown, Verified 10/24/23 08:06) unknown Do you need a note to return to daycare/school/sports/work: Yes HPI HPI Comments History of Present Illness Details presents to walkin today for sick visit endorses bilateral ear pain, fatigue and body aches for last 2 days Denies hearing loss, drainage from ear, ringing in the ear, dizziness, syncope. Patient denies sore throat, cough, fever, vomiting, diarrhea, headache. Tested negative for COVID [facility] Medical History Diverticulosis Elevated cholesterol DM type 2 (diabetes mellitus, type 2) Surgical History Hx of colonoscopy [place] teeth extracted H/O vasectomy Family History Mother No problems noted. Father Colon cancer Social History Housing: House Comment: left eye, better Patient Tobacco Use Status: Never used Tobacco e-Cigarette/Vaping Use: Never Used Second Hand Smoke Exposure: No Current occupational status: employed Current occupation: left handed Cognitive needs: No Hearing needs: No Vision needs: No Review of Systems Const All systems reviewed & are unremarkable except as noted in HPI and below Physical Exam General: awake, alert, oriented. Answers questions appropriately. Fully engaged in examination. Skin: warm, dry, intact HEENT: TMs intact bilaterally, without erythema or exudate. Posterior pharynx without erythema or exudate. Sclera without icterus or injection. Cardiac: External chest normal in appearance. Respiratory: LSCTAB. Abdomen: without gross distension. Neurological: Oriented to person, place, time and situation. Thought process intact. Psychiatric: Appropriate mood and affect. Good judgment and insight. Assessment & Plan Assessment & Plan (1) URI (upper respiratory infection): Code(s): J06.9 - Acute upper respiratory infection, unspecified Plan URI, no abx warranted. Rest, drink plenty of fluids, tylenol or motrin as needed. Work note provided Follow up with pcp or in clinic for any new or worsening symptoms. Go to ER for shortness of breath, chest pain, palpitations, weakness, dizziness. Coding Level of Care Code Est Pt Level 3 (12484) Diagnoses URI (upper respiratory infection) J06.9
== END 2023-10-24 08:35 | disposition home or self-care (01) ==
PROVIDERS: PCP Nurse Practitioner Family; Visit Provider Registered Nurse Emergency
DX: J06.9 Acute upper respiratory infection, unspecified (principal)
CPT/HCPCS: 99213

== ENCOUNTER 2023-12-09 09:03 | Outpatient (AMB) | payer BC, SELFPAY ==
--- NOTE | 2023-12-09 09:05 | MHC.OFFVIS ---
Vital Signs 12/09/23 09:08 Height 5 ft 8 in Weight 180 lb 5.41 oz BMI 27.4 BP 112/84 Blood Pressure Location Rt brachial Position Sitting Pulse 100 Pulse Source Pulse Oximeter Intake Visit Reasons: DM/confirmed Intake Note: Patient present today to follow up on Type 2 Diabetes Mellitus. Last Diabetic Eye exam: approx 6 months Last Podiatry Visit: approx 4 weeks Random Glucose: 142 mg/dl HgA1C: 6.0% Battery Recharger Required: No Accompanied by: Self / Same As Patient Allergies acetaminophen [From Percocet] Allergy (Severe, Verified 12/09/23 09:09) ANAPHYLAXIS eggplant Allergy (Severe, Verified 12/09/23 09:09) Itching, swelling, difficulty breathing oxycodone [Percocet] Allergy (Severe, Verified 12/09/23 09:09) Anaphylaxis celecoxib [Celebrex] Allergy (Unknown, Verified 12/09/23 09:09) unknown opiates Allergy (Unknown, Verified 12/09/23 09:09) unknown HPI HPI DM/confirmed: Details: Patient is a 53-year-old male who presents today for a follow-up regarding his diabetes. He has a significant past medical history fatty liver, elevated LFTs, dyslipidemia, type 2 diabetes, renal cysts and microscopic hematuria. He has no acute concerns today. Endo: Initially diagnosed with T2DM in 09/15/21. Was initially started on treatment with metformin which has since been discontinued. He is now only on Mounjaro 7.5 mg Q wkly. His A1c today is 6. . Dexcom download shows using the sensor 93% average glucose to be 141 with G mi of 6.7% and standard deviation of 22 . with 94% range, 6% hyperglycemia. Reports low sugars none. No Family history of T2DM . Has eyes checked yearly, last eye exam appt 6 mos ago , denies retinopathy. Denies neuropathy, , does not sees podiatry. Denies nephropathy, on GLADIS/ARB. Not HLD, on Zetia . . Denies CAD. 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 Father Colon cancer Social History Housing: House Comment: left eye, better Patient Tobacco Use Status: Never used Tobacco e-Cigarette/Vaping Use: Never Used Second Hand Smoke Exposure: No Current occupational status: employed Current occupation: left handed Cognitive needs: No Hearing needs: No Vision needs: No Physical Exam Vital Signs: Last Vital Signs Pulse 100 12/09/23 09:08 BP 112/84 12/09/23 09:08 BMI result Body Mass Index 27.4 Const Orientation/consciousness: patient oriented x3 HEENT Ears: hearing grossly normal bilaterally Neck Thyroid: Thyroid normal Lymphatic: no lymphadenopathy noted Resp Auscultation: clear to auscultation bilaterally Cardio Rate: regular rate Rhythm: regular rhythm Heart sounds: S1 normal heart sound present and S2 normal heart sound present Skin General skin exam: no rashes or lesions noted Neuro General: patient oriented x3, gait normal and no focal motor deficits Extrem Other: DP pulses 2+ bilaterally. Monofilament sensation intact. Vibratory sensation intact. Skin intact. Results AMB Hemoglobin A1c AMB Hemoglobin A1c 6.0 % Last Edit by JIMY Mendoza on 12/09/23 09:28 Results Reviewed Results Reviewed: Laboratory Last Values Glucose (Clinic) 142 mg/dL (60-115) H 12/09/23 09:17 Hgb A1c (Clinic) 6.0 % (4.0-6.0) 12/09/23 09:27 Laboratory Tests 08/02/23 12/09/23 12/09/23 06:34 09:17 09:27 Glucose (Clinic) 142 H Hgb A1c (Clinic) 6.0 Triglycerides 211 H Cholesterol 220 H LDL Cholesterol, Calc 135 H HDL Cholesterol 43 TSH 1.96 Assessment & Plan Assessment & Plan (1) Type II diabetes mellitus, well controlled: Code(s): E11.9 - Type 2 diabetes mellitus without complications Category: Medical Plan: Continue current regimen with mouonjaro 7.5 mg. He tolerates this well. Will recheck diabetic labs in 3 months and follow-up at that time. Sooner if needed. (2) Dyslipidemia: Code(s): E78.5 - Hyperlipidemia, unspecified Category: Medical Plan: Continue Zetia. Lipids ordered. He is working on diet. (3) Fatty liver: Code(s): K76.0 - Fatty (change of) liver, not elsewhere classified Category: Medical Plan: States he plans to have his liver ultrasound recheck next year after being on the mounjaro for 2 years. Orders: Orders Hemoglobin A1c 2 Months E11.9 - Type 2 diabetes mellitus without complications, E78.5 - Hyperlipidemia, unspecified, K76.0 - Fatty (change of) liver, not elsewhere classified AMB Hemoglobin A1c Today E11.39 - Type 2 diabetes mellitus with other diabetic ophthalmic complication, E11.65 - Type 2 diabetes mellitus with hyperglycemia Medications: Refilled OneTouch Ultra2 Meter (blood-glucose meter) to test blood sugars as directed 1 ea 0RF NS E11.39 - Type 2 diabetes mellitus with other diabetic ophthalmic complication, E11.65 - Type 2 diabetes mellitus with hyperglycemia Coding Level of Care Code Est Pt Level 4 (62264) Complex EM visit Add On G2211 Diagnoses Type II diabetes mellitus, well controlled E11.9 Dyslipidemia E78.5 Fatty liver K76.0
[2023-12-09 09:08] VITALS: BP 112/84; PULSE 100; BMI 27.4
[2023-12-09 09:21] LABS: Glucose, Whole Blood 142 mg/dL (60-115)
== END 2023-12-09 10:01 | disposition home or self-care (01) ==
PROVIDERS: PCP Nurse Practitioner Family; Visit Provider Physician Assistant
DX: E11.9 Type 2 diabetes mellitus without complications (principal); E78.5 Hyperlipidemia, unspecified; K76.0 Fatty (change of) liver, not elsewhere classified
CPT/HCPCS: 99214

== ENCOUNTER → 2023-12-09 09:03 | Outpatient (BNVA) | payer BC, SELFPAY | PROVIDERS: PCP Nurse Practitioner Family; Visit Provider Physician Assistant | DX: E11.65 Type 2 diabetes mellitus with hyperglycemia (principal); E11.39 Type 2 diabetes mellitus with other diabetic ophthalmic complication; E78.5 Hyperlipidemia, unspecified; K76.0 Fatty (change of) liver, not elsewhere classified | CPT/HCPCS: 82947; 83036 ==

== ENCOUNTER 2024-02-13 07:54 | Outpatient (REF) | payer BC, SELFPAY ==
--- NOTE | ~2024-02-13 | US_ITS ---
EXAMINATION: US RETROPERITONEAL COMPLETE (RENAL) CLINICAL INFORMATION: Renal cyst. COMPARISON: None available. TECHNIQUE: Real-time imaging of the kidneys and bladder. FINDINGS: RIGHT KIDNEY: 11.3 x 5.5 x 7.0 cm (SAG x AP x TRV). The kidney is normal in size, contour, and echogenicity. Renal cortical thickness is normal. No calculi or focal parenchymal lesions. No hydronephrosis. LEFT KIDNEY: 10.6 x 5.4 x 5.5 cm (SAG x AP x TRV). The kidney is normal in size, contour, and echogenicity. Renal cortical thickness is normal. No calculi or focal parenchymal lesions. No hydronephrosis. US/US renal BI IMPRESSION: Unremarkable examination. Electronically signed by: Rob Lopez MD 03/01/2024 10:46 AM EDT
== END 2024-02-13 07:55 | disposition home or self-care (01) ==
LOC: HO.US 07:54
PROVIDERS: PCP Nurse Practitioner Family; Visit Provider Nurse Practitioner Family
DX: N28.1 Cyst of kidney, acquired (principal)
CPT/HCPCS: 76775

== ENCOUNTER 2024-03-09 08:56 | Outpatient (AMB) | payer BC, SELFPAY ==
--- NOTE | 2024-03-09 09:02 | A.OFFVIS_ITS ---
Vital Signs 03/09/24 09:03 Height 5 ft 8 in Weight 177 lb 11.081 oz BMI 27.0 BP 114/74 Blood Pressure Location Lt brachial Position Sitting Pulse 100 Pulse Source Pulse Oximeter Intake Visit Reasons: DM/CONFIRMED Intake Note: Patient presents today for D2FL follow up visit. Last Diabetic Eye exam: 01/16/2024 Last Podiatry Visit: 01/2024 Random Glucose: 108 mg/dl HgA1c: 6.1% [employer] [facility] Required: No Accompanied by: Self / Same As Patient Allergies acetaminophen [From Percocet] Allergy (Severe, Verified 03/09/24 09:11) ANAPHYLAXIS eggplant Allergy (Severe, Verified 03/09/24 09:11) Itching, swelling, difficulty breathing oxycodone [Percocet] Allergy (Severe, Verified 03/09/24 09:11) Anaphylaxis celecoxib [Celebrex] Allergy (Unknown, Verified 03/09/24 09:11) unknown opiates Allergy (Unknown, Verified 03/09/24 09:11) unknown HPI HPI DM/CONFIRMED: Details: Patient is a 53-year-old male who presents today for a follow-up regarding his diabetes. He has a significant past medical history fatty liver, elevated LFTs, dyslipidemia, type 2 diabetes, renal cysts and microscopic hematuria. He has no acute concerns today. -forgot labs prior to appointment Endo: Initially diagnosed with T2DM in 09/15/21. Was initially started on treatment with metformin which has since been discontinued. He is now only on Mounjaro 7.5 mg Q wkly. His A1c today is 6. . Dexcom download shows using the sensor 93% average glucose to be 141 with G mi of 6.7% and standard deviation of 22 . with 94% range, 6% hyperglycemia. Reports low sugars none. No Family history of T2DM . Has eyes checked yearly, last eye exam appt 6 mos ago , denies retinopathy. Denies neuropathy, , does not sees podiatry. Denies nephropathy, on GLADIS/ARB. Not HLD, on Zetia . . Denies CAD. Saw diabetes education and ehs manager here [facility] Medical History (Updated 12/09/23 @ 09:57 by Lorena Gay PA-C) Weight loss Shortness of breath Pain of left thumb Snoring Family history of colon cancer Nocturnal hypoxemia Daytime sleepiness URI (upper respiratory infection) Type II diabetes mellitus, well controlled Diverticulosis Elevated cholesterol DM type 2 (diabetes mellitus, type 2) Surgical History Hx of colonoscopy [place] teeth extracted H/O vasectomy Family History Mother No problems noted. Father Colon cancer Social History Housing: House Comment: left eye, better Patient Tobacco Use Status: Never used Tobacco e-Cigarette/Vaping Use: Never Used Second Hand Smoke Exposure: No Current occupational status: employed Current occupation: left handed Cognitive needs: No Hearing needs: No Vision needs: No Physical Exam Vital Signs: Last Vital Signs Pulse 100 03/09/24 09:03 BP 114/74 03/09/24 09:03 BMI result Body Mass Index 27.0 Const Orientation/consciousness: patient oriented x3 Neck Neck: Yes no lymphadenopathy Thyroid: Thyroid normal Carotids: no bruits Resp Auscultation: clear to auscultation bilaterally Cardio Rate: regular rate Rhythm: regular rhythm Heart sounds: S1 normal heart sound present and S2 normal heart sound present Peripheral pulses: dorsalis pedis present Neuro General: patient oriented x3, gait normal and no focal motor deficits Extrem Other: Monofilament sensation intact bilaterally. Vibratory sensation intact bilaterally. Skin intact. General: Yes normal to inspection Results AMB Hemoglobin A1c AMB Hemoglobin A1c 6.1 % Last Edit by JIMY Woodard on 03/09/24 09:25 Results Reviewed Results Reviewed: Laboratory Last Values Glucose (Clinic) 108 mg/dL (60-115) 03/09/24 09:15 Laboratory Tests 12/09/23 09:27 Hgb A1c (Clinic) 6.0 Assessment & Plan Assessment & Plan (1) Type II diabetes mellitus, well controlled: Code(s): E11.9 - Type 2 diabetes mellitus without complications Category: Medical Plan: Continue current regimen. Follow up in 3-4 months. Sooner if needed (2) Dyslipidemia: Code(s): E78.5 - Hyperlipidemia, unspecified Category: Medical Plan: As above Orders: Orders AMB Hemoglobin A1c Today E11.9 - Type 2 diabetes mellitus without complications, Z13.9 - Encounter for screening, unspecified Coding Level of Care Code Est Pt Level 4 (70741) Diagnoses Type II diabetes mellitus, well controlled E11.9 Dyslipidemia E78.5
[2024-03-09 09:03] VITALS: BP 114/74; PULSE 100; BMI 27.0
[2024-03-09 09:19] LABS: Glucose, Whole Blood 108 mg/dL (60-115)
== END 2024-03-09 09:30 | disposition home or self-care (01) ==
PROVIDERS: PCP Nurse Practitioner Family; Visit Provider Physician Assistant
DX: Z13.9 Encounter for screening, unspecified (principal); E11.9 Type 2 diabetes mellitus without complications; E78.5 Hyperlipidemia, unspecified
CPT/HCPCS: 99214

== ENCOUNTER → 2024-03-09 08:56 | Outpatient (BNVA) | payer BC, SELFPAY | PROVIDERS: PCP Nurse Practitioner Family; Visit Provider Physician Assistant | DX: E11.9 Type 2 diabetes mellitus without complications (principal); E78.5 Hyperlipidemia, unspecified; Z79.85 Long-term (current) use of injectable non-insulin antidiabetic drugs | CPT/HCPCS: 82947; 83036 ==

== ENCOUNTER 2024-03-14 13:47 | Outpatient (AMB) | payer BC, SELFPAY ==
[2024-03-14 14:01] VITALS: BP 118/72; PULSE 68; O2SAT 98; BMI 27.4
--- NOTE | 2024-03-14 14:01 | MHC.PC.OV ---
Vital Signs 03/14/24 14:01 Height 5 ft 8 in Weight 180 lb BMI 27.4 BP 118/72 Blood Pressure Location Rt brachial Position Sitting Pulse 68 Pulse Source Pulse Oximeter Pulse Oximetry (%) 98 Oxygen Delivery Method Room Air Intake Visit Reasons: 6M F/U Intake Note: pt is here for 6 month follow up Agricultural Engineering Technicians Required: No Accompanied by: Self / Same As Patient Allergies acetaminophen [From Percocet] Allergy (Severe, Verified 03/14/24 14:02) ANAPHYLAXIS eggplant Allergy (Severe, Verified 03/14/24 14:02) Itching, swelling, difficulty breathing oxycodone [Percocet] Allergy (Severe, Verified 03/14/24 14:02) Anaphylaxis celecoxib [Celebrex] Allergy (Unknown, Verified 03/14/24 14:02) unknown opiates Allergy (Unknown, Verified 03/14/24 14:02) unknown Medication List - Last Reconciled 03/14/24 by Rob Huff, MECHANICAL SERVICE REPRESENTATIVE- albuterol sulfate 90 mcg/actuation 1 inh inhalation QID PRN blood-glucose meter,continuous (Dexcom G7 Director Of Product Management) As directed blood-glucose sensor (Dexcom G7 Sensor device) DIRECTED CHANGE EVERY 10 DAYS docosahexaenoic acid (Algal [place]ell[place]-3 DHA) 200 mg PO DAILY 90 days epinephrine (EpiPen 2-Wong) 0.3 mg (0.3 mL) IM Q10M PRN 30 days ezetimibe 10 mg PO DAILY 90 days glucagon 3 mg/actuation (Baqsimi) 3 mg intranasal ONCE PRN 1 day lancets (OneTouch Delica Lancets) test blood sugar twice a day lisinopril 2.5 mg PO DAILY 90 days omega-3 acid ethyl esters 1 cap PO BID OneTouch Ultra Test (blood sugar diagnostic) Test blood sugar twice a day NS OneTouch Ultra2 Meter (blood-glucose meter) to test blood sugars as directed NS sildenafil 100 mg PO DAILY PRN 30 days tirzepatide (Mounjaro) 7.5 mg (0.5 mL) subcut QWEEK 90 days Tobacco use date assessed: 09/21/23 Dental Screening Dental Screen Date: 09/21/23 HPI 6M F/U HPI Details Dyslipidemia: On ezetimibe 10mg. Will order labs. Pt had a renal US in February of 2023 which showed bilateral renal cysts. Repeat US in February of 2024 showed no renal cysts. Will continue to monitor. Pt is a diabetic, sees endo. Denies fever, chills, and dizziness. [facility] Medical History Weight loss Shortness of breath Pain of left thumb Snoring Family history of colon cancer Nocturnal hypoxemia Daytime sleepiness URI (upper respiratory infection) Type II diabetes mellitus, well controlled Diverticulosis Elevated cholesterol DM type 2 (diabetes mellitus, type 2) Surgical History Hx of colonoscopy [place] teeth extracted H/O vasectomy Family History Mother No problems noted. Father Colon cancer Social History Housing: House Comment: left eye, better Patient Tobacco Use Status: Never used Tobacco e-Cigarette/Vaping Use: Never Used Second Hand Smoke Exposure: No Current occupational status: employed Current occupation: left handed Cognitive needs: No Hearing needs: No Vision needs: No Questionnaire PHQ-9 Over the last 2 weeks, how often have you been bothered by any of the following problems? 1. Little interest or pleasure in doing things: not at all 2. Feeling down, depressed, or hopeless: not at all 3. Trouble falling or staying asleep, or sleeping too much: not at all 4. Feeling tired or having little energy: not at all 5. Poor appetite or overeating: not at all 6. Feeling bad about yourself - or that you are a failure or have let yourself or your family down: not at all 7. Trouble concentrating on things, such as reading the newspaper or watching television: not at all 8. Moving or speaking so slowly that other people could have noticed. Or the opposite - being so fidgety or restless that you have been moving around a lot more than usual: not at all 9. Thoughts that you would be better off or of hurting yourself in some way: not at all Total score: 0 Depression Screening Interpretation: Negative Depression Screening Done: Yes 36376 - PHQ-9 Billing: Yes Source: Developed by Drs. Suraj Strong, Mahamed Silverman and colleagues, with an educational nigel from [employer]. Thrive Questionnaire Date Thrive assessed: 03/14/24 I am a: Patient What is your living situation today?: I have a steady place to live Within the past 12 months, did the food you bought not last and you didn't have the money to get more?: Never true Within the past 12 months, did you worry whether your food would run out before you got money to buy more?: Never true Do you have trouble paying for medicines?: No Do you have trouble getting transportation to medical appointments?: No Do you have trouble paying your heating and electricity bill?: No Do you have trouble taking care of your child, family member or friend?: No Do you have trouble with day-to-day activities such as bathing, preparing meals, shopping, managing finances, etc.?: No Are you currently unemployed and looking for a job?: No Are you interested in more education?: No Please select the resources that you would like help with: None Currently or been in a relationship where the following occur: No concerns reported THRIVE Score: 0 AUDIT C Alcohol Use Questionnaire (AUDIT-C) 1. How often do you have a drink containing alcohol?: Never 3. How often do you have six or more drinks on one occasion?: Never Total Score: 0 Score Reviewed/Action Taken: Yes TIMMY-7 AMB Questionnaire TIMMY-7 Date TIMMY - 7 assessed: 03/14/24 Feeling nervous, anxious, or on edge: 0 = Not at all Not being able to stop or control worryin = Not at all Worrying too much about different things: 0 = Not at all Trouble relaxin = Not at all Being so restless that it is hard to sit still: 0 = Not at all Becoming easily annoyed or irritable: 0 = Not at all Feeling afraid as if something awful might happen: 0 = Not at all Total TIMMY-7 score (0-4 normal; 5-9 mild; 10-14 moderate; 15-21 severe): 0 Source: Developed by Ewa Stanford Kurt Kroenke and colleagues, with an educational nigel from [employer]. TIMMY-7 Assessment Billing TIMMY-7 Assessment Tool: TIMMY-7 Assessment 81658 Review of Systems Const Reports as per HPI Physical exam (Primary Care) Vital Signs: Last Vital Signs Pulse 68 03/14/24 14:01 BP 118/72 03/14/24 14:01 Pulse Ox 98 03/14/24 14:01 Oxygen Delivery Method Room Air 03/14/24 14:01 BMI result Body Mass Index 27.4 Tobacco/Smoking Status: Tobacco use Status Tobacco use date assessed 09/21/23 03/14/24 14:01 Patient Tobacco Use Status Never used Tobacco 03/14/24 14:01 e-Cigarette/Vaping Use Never Used 03/14/24 14:01 PHQ-9: PHQ-9 Score PHQ-9: Total score 0 03/14/24 14:13 Depression Screening Interpretation: Negative Thrive Assessment: Date of Thrive Assessment Date Thrive assessed 03/14/24 03/14/24 14:07 Currently or been in a relationship where the following occur: No concerns reported Const General: cooperative Orientation/consciousness: patient oriented x3 Resp Effort & Inspection: normal respiratory effort Auscultation: clear to auscultation bilaterally Cardio Rate: regular rate Rhythm: regular rhythm Heart sounds: S1 normal heart sound present and S2 normal heart sound present Neuro General: patient oriented x3 Psych Appearance: grossly normal Mental Status: mental status grossly normal Speech and movement: Normal speech and movement present Affect: normal affect Attitude: cooperative Thought process: Normal thought process present Thought content: Normal thought content present Insight: Good insight present (Psych) Judgement: Good judgement present (Psych) Assessment and Plan Assessment & Plan (1) Renal cyst: Code(s): N28.1 - Cyst of kidney, acquired Plan: Will continue to monitor (2) Dyslipidemia: Code(s): E78.5 - Hyperlipidemia, unspecified Plan: Labs ordered (3) Screening for prostate cancer: Code(s): Z12.5 - Encounter for screening for malignant neoplasm of prostate Plan: PSA ordered (4) Type II diabetes mellitus, well controlled: Code(s): E11.9 - Type 2 diabetes mellitus without complications Plan: Seeing endo Plan The patient agreed to the use of a quality engineer medical device for this encounter. Scribed for BRANDIN Soliz by Val Albaro, quality engineer medical device, on 03/14/2024 at 14:10 EST. Orders: Orders TSH reflex Free T4 Today E78.5 - Hyperlipidemia, unspecified UA CC w/rflx Micro + Cult Today E78.5 - Hyperlipidemia, unspecified Complete Blood Count Auto Diff Today E78.5 - Hyperlipidemia, unspecified Comprehensive [place]. Panel Fast Today E78.5 - Hyperlipidemia, unspecified Lipid Panel Today E78.5 - Hyperlipidemia, unspecified Prostate Specific Antigen Scr Today Z12.5 - Encounter for screening for malignant neoplasm of prostate Microalbumin, Random (w Creat) Today E11.9 - Type 2 diabetes mellitus without complications, E78.5 - Hyperlipidemia, unspecified Coding Level of Care Code Est Pt Level 3 (80201) Diagnoses Renal cyst N28.1 Dyslipidemia E78.5 Screening for prostate cancer Z12.5 Type II diabetes mellitus, well controlled E11.9 Additional Codes TIMMY-7 Assessment Billing - TIMMY-7 Assessment Tool: TIMMY-7 Assessment 50004 ([id number])
== END 2024-03-14 14:29 | disposition home or self-care (01) ==
PROVIDERS: PCP Nurse Practitioner Family; Visit Provider Nurse Practitioner Family
DX: E11.69 Type 2 diabetes mellitus with other specified complication (principal); N28.1 Cyst of kidney, acquired; E78.5 Hyperlipidemia, unspecified; Z12.5 Encounter for screening for malignant neoplasm of prostate
CPT/HCPCS: 99213

== ENCOUNTER 2024-03-15 15:23 | Outpatient (AMB) | payer BC, SELFPAY ==
[2024-03-15 15:32] VITALS: BP 126/9; PULSE 96; O2SAT 97; BMI 26.9
--- NOTE | 2024-03-15 15:32 | A.OFFVIS_ITS ---
Vital Signs 03/15/24 15:32 Height 5 ft 8 in Weight 177 lb BMI 26.9 BP 126/9 L Blood Pressure Location Rt brachial Position Sitting Pulse 96 Pulse Source Pulse Oximeter Pulse Oximetry (%) 97 Oxygen Delivery Method Room Air Intake Visit Reasons: 4 mo f/u Intake Note: Ptb has not heard anything about his cpap machine is been over 3 months. Project Leader Required: No Accompanied by: Self / Same As Patient Allergies acetaminophen [From Percocet] Allergy (Severe, Verified 03/15/24 15:32) ANAPHYLAXIS eggplant Allergy (Severe, Verified 03/15/24 15:32) Itching, swelling, difficulty breathing oxycodone [Percocet] Allergy (Severe, Verified 03/15/24 15:32) Anaphylaxis celecoxib [Celebrex] Allergy (Unknown, Verified 03/15/24 15:32) unknown opiates Allergy (Unknown, Verified 03/15/24 15:32) unknown HPI Comments Details: 53yr-old male presents for follow-up visit of sleep apnea. Pt denies any significant interval medical history changes. Pt underwent in-lab PAP titration which showed stabilization of sleep apnea and nocturnal hypoxemia with CPAP 6 cmH2O. Since, pt has rec'd CPAP, which he is using consistently. ZMay miss an occasional day d/t nasal congestion- he may use saline rinses but does not want to use medicated nasal sprays for nasal congestion. He states he is sleeping well w/ CPAP. He is need of new PAP supplies. [address], [facility] Email: [email or web address] Compliance Report Usage 02/14/2024 - 03/14/2024 Usage days 29/30 days (97%) >= 4 hours 27 days (90%) < 4 hours 2 days (7%) Usage hours 187 hours 40 minutes Average usage (total days) 6 hours 15 minutes Average usage (days used) 6 hours 28 minutes Median usage (days used) 6 hours 58 minutes Total used hours (value since last reset - 03/14/2024) 841 hours AirSense 10 AutoSet Serial number [id number] Mode CPAP Set pressure 6 cmH2O EPR Fulltime EPR level 2 Therapy Leaks - L/min Median: 0.1 95th percentile: 4.1 Maximum: 26.4 Events per hour AI: 1.2 HI: 0.4 AHI: 1.6 Apnea Index Central: 0.7 Obstructive: 0.4 Unknown: 0.0 RERA Index 0.7 PFSH Medical History Weight loss Shortness of breath Pain of left thumb Snoring Family history of colon cancer Nocturnal hypoxemia Daytime sleepiness URI (upper respiratory infection) Type II diabetes mellitus, well controlled Diverticulosis Elevated cholesterol DM type 2 (diabetes mellitus, type 2) Surgical History Hx of colonoscopy [place] teeth extracted H/O vasectomy Family History Mother No problems noted. Father Colon cancer Social History Housing: House Comment: left eye, better Patient Tobacco Use Status: Never used Tobacco e-Cigarette/Vaping Use: Never Used Second Hand Smoke Exposure: No Current occupational status: employed Current occupation: left handed Cognitive needs: No Hearing needs: No Vision needs: No Physical Exam Vital Signs: Last Vital Signs Pulse 96 03/15/24 15:32 BP 126/9 L 03/15/24 15:32 Pulse Ox 97 03/15/24 15:32 Oxygen Delivery Method Room Air 03/15/24 15:32 BMI result Body Mass Index 26.9 Const General: no acute distress Orientation/consciousness: patient oriented x3 HEENT Other: Mallampati stage Resp Effort & Inspection: normal respiratory effort and able to speak in complete sentences Neuro General: patient oriented x3 Psych Mental Status: mental status grossly normal Speech and movement: Clear speech present Attitude: cooperative Results Reviewed Results Reviewed: PAP compliance report- see HPI Assessment & Plan Assessment & Plan (1) ALANA (obstructive sleep apnea): Comment: Severe degree of sleep apnea. The AHI was 29/hr, supine AHI was 49/hr, and oxygen aurelio was 69%. Code(s): G47.33 - Obstructive sleep apnea (adult) (pediatric) Category: Medical Plan Continue CPAP 6 cmH2O nightly > 4 hours, as pt continues to have good clinical effect from use w/ good reduction in AHI. Clean CPAP machine and supplies routinely. Change CPAP supplies routinely. Will check w/ [facility] on supply status. Pt to contact us or respiratory company with any questions or concerns. Coding Level of Care Code Est Pt Level 3 (57357) Diagnoses ALANA (obstructive sleep apnea) G47.33
== END 2024-03-15 16:27 | disposition home or self-care (01) ==
PROVIDERS: PCP Nurse Practitioner Family; Visit Provider Nurse Practitioner Family
DX: G47.33 Obstructive sleep apnea (adult) (pediatric) (principal)
CPT/HCPCS: 99213

== ENCOUNTER → 2024-03-15 15:23 | Outpatient (BNVA) | payer BC, SELFPAY | PROVIDERS: PCP Nurse Practitioner Family; Visit Provider Nurse Practitioner Family ==

== ENCOUNTER 2024-07-06 08:59 | Outpatient (AMB) | payer BC, SELFPAY ==
--- NOTE | 2024-07-06 09:01 | A.OFFVIS_ITS ---
Vital Signs 07/06/24 09:04 Height 5 ft 8 in Weight 174 lb 2.643 oz BMI 26.5 BP 114/78 Blood Pressure Location Rt brachial Position Sitting Pulse 78 Pulse Source Pulse Oximeter Intake Visit Reasons: DM/Confirmed Intake Note: Patient presents today for D2SD follow up visit. Last Diabetic Eye exam: 01/16/2024 Last Podiatry Visit: 06/2024 Most Recent HgA1c: 5.7%, 07/06/2024 Random Glucose: 109 mg/dL, Today Mint Machine Operator Required: No Accompanied by: Self / Same As Patient Allergies acetaminophen [From Percocet] Allergy (Severe, Verified 07/06/24 09:22) ANAPHYLAXIS eggplant Allergy (Severe, Verified 07/06/24 09:22) Itching, swelling, difficulty breathing oxycodone [Percocet] Allergy (Severe, Verified 07/06/24 09:22) Anaphylaxis celecoxib [Celebrex] Allergy (Unknown, Verified 07/06/24 09:22) unknown opiates Allergy (Unknown, Verified 07/06/24 09:22) unknown Medication List - Last Reconciled 07/06/24 by Lorena Gay PA-C albuterol sulfate 90 mcg/actuation 1 inh inhalation QID PRN blood-glucose meter,continuous (Dexcom G7 Aerodynamicist) As directed blood-glucose sensor (Dexcom G7 Sensor device) DIRECTED CHANGE EVERY 10 DAYS epinephrine (EpiPen 2-Wong) 0.3 mg (0.3 mL) IM Q10M PRN 30 days glucagon 3 mg/actuation (Baqsimi) 3 mg intranasal ONCE PRN 1 day lancets (OneTouch Delica Lancets) test blood sugar twice a day omega-3 acid ethyl esters 1 cap PO BID OneTouch Ultra Test (blood sugar diagnostic) Test blood sugar twice a day NS OneTouch Ultra2 Meter (blood-glucose meter) to test blood sugars as directed NS tirzepatide (Mounjaro) 7.5 mg (0.5 mL) subcut QWEEK 90 days HPI HPI DM/Confirmed: Details: Patient is a 53-year-old male who presents today for a follow-up regarding his diabetes. He has a significant past medical history fatty liver, elevated LFTs, dyslipidemia, type 2 diabetes, renal cysts and microscopic hematuria. He has no acute concerns today. -forgot labs prior to appointment Endo: Initially diagnosed with T2DM in 09/15/21. Was initially started on treatment with metformin which has since been discontinued. He is now only on Mounjaro 7.5 mg Q wkly. His A1c today is 5.7. . Dexcom download shows using the sensor 93% average glucose to be 141 with G mi of 6.7% and standard deviation of 22 . with 94% range, 6% hyperglycemia. Reports low sugars none. No Family history of T2DM . Saw diabetes education and landing gear mechanic here CV: bp todady in office is 114/78. He used to have lisinopril listed in chart but states he never took it. Last cholesterol from last year was elevated and he was on zetia but has been off of this for about a year. [facility] Medical History Weight loss Shortness of breath Pain of left thumb Snoring Family history of colon cancer Nocturnal hypoxemia Daytime sleepiness URI (upper respiratory infection) Type II diabetes mellitus, well controlled Diverticulosis Elevated cholesterol DM type 2 (diabetes mellitus, type 2) Surgical History Hx of colonoscopy [place] teeth extracted H/O vasectomy Family History Mother No problems noted. Father Colon cancer Social History Housing: House Comment: left eye, better Patient Tobacco Use Status: Never used Tobacco e-Cigarette/Vaping Use: Never Used Second Hand Smoke Exposure: No Current occupational status: employed Current occupation: left handed Cognitive needs: No Hearing needs: No Vision needs: No Physical Exam Vital Signs: Last Vital Signs Pulse 78 07/06/24 09:04 BP 114/78 07/06/24 09:04 BMI result Body Mass Index 26.5 Const Orientation/consciousness: patient oriented x3 HEENT Ears: hearing grossly normal bilaterally Neck Thyroid: Thyroid normal Lymphatic: no lymphadenopathy noted Resp Auscultation: clear to auscultation bilaterally Cardio Rate: regular rate Rhythm: regular rhythm Heart sounds: S1 normal heart sound present and S2 normal heart sound present Skin General skin exam: no rashes or lesions noted Neuro General: patient oriented x3, gait normal and no focal motor deficits Office Procedures Glucose Monitoring Details Details: see [facility] [id number] - Glucose monitoring, continuous-physician I&R Procedure code (CPT) selection complete Results AMB Hemoglobin A1c AMB Hemoglobin A1c 5.7 % Last Edit by JIMY Ruiz on 07/06/24 09:21 Results Reviewed Results Reviewed: Laboratory Last Values Glucose (Clinic) 109 mg/dL (60-115) 07/06/24 09:09 Hgb A1c (Clinic) 5.7 % (4.0-6.0) 07/06/24 09:13 Laboratory Tests 08/02/23 07/06/24 07/06/24 06:34 09:09 09:13 Sodium 138 Potassium 4.2 Chloride 106 Carbon Dioxide 27 Anion Gap 9 L BUN 13 Creatinine 1.08 Estimated GFR > 60 Glucose (Clinic) 109 Fasting Glucose 105 H Estimat Average Glucose 117 Hgb A1c (Clinic) 5.7 Assessment & Plan Assessment & Plan (1) Type II diabetes mellitus, well controlled: Code(s): E11.9 - Type 2 diabetes mellitus without complications Category: Medical Plan: Continue current regimen. Currently very well-controlled. Reminded him to complete blood work. Follow up in 3 months or sooner if needed (2) Dyslipidemia: Code(s): E78.5 - Hyperlipidemia, unspecified Category: Medical Plan: Not on Zetia. We will check labs. Orders: Orders AMB Hemoglobin A1c Today E11.9 - Type 2 diabetes mellitus without complications Medications: Refilled tirzepatide (Mounjaro) 7.5 mg (0.5 mL) subcut QWEEK 90 days 6 mL 4RF Coding Level of Care Code Est Pt Level 4 (72831) Diagnoses Type II diabetes mellitus, well controlled E11.9 Dyslipidemia E78.5 CPT Codes Details - CPT: 13595 - Glucose monitoring, continuous-physician I&R ([id number])
[2024-07-06 09:04] VITALS: BP 114/78; PULSE 78; BMI 26.5
[2024-07-06 09:12] LABS: Glucose, Whole Blood 109 mg/dL (60-115)
--- OUTSIDE RECORDS SUMMARY | 2024-07-06 09:16 | XMS_ITS | Patient Health Record ---
[facility] Organization [facility] Address [address] [place] [address] Care Team Providers Care Firing Pin Gauger Name Role Phone Rob Barrett Primary Care Provider Unav Walker Diallo Unavailable [phone] Allergies Allergen (clinical drug ingredient) Drug/Non Drug Allergy documented on EMR Reaction Allergy Type Onset Date Status Opiate (uncoded) Unknown Allergy Act ap acetaminophen Acetaminophen Unknown Drug Allergy Active celecoxib Celecoxib Unknown Drug Allergy Active acetaminophen Tylenol Unknown Drug Allergy Act ap morphine Morphine Unknown Drug Allergy Active Eggplant Unknown Allergy Active Results Component Value Reference Range Notes HEMOGLOBIN A1C (GLYCOHEMOGLO BIN) Reviewed date:06/21/2024 03:03:57 PM Interpretation: Performing Lab: Notes/Report: TOTAL HEMOGLOBIN (HGBA1C) 6.1 Reason For Referral No Information Medications Medication SIG (Take, Route, Frequency, Duration) Notes Start Date End Date Status Mounjaro Active [place] 3 Active Social History Tobacco Use: Social History Observation Description Date Details (start date - stop date) Never Smoker NA - NA Tobacco use other than smoking: Question Answer Notes Are you an other tobacco user? No Tobacco Control (Standard) Question Answer Notes Tobacco use: Nonsmoker Additional Findings: Tobacco non-user Current no nsmoker AUDIT-C (Standard) Question Answer Notes Did you have a drink containing alcohol in the p ast year? No Points 0 Interpretation Negative Problems Problem Type SNOMED Code ICD Code Onset Dates Problem Status W/U Status Risk Notes Problem Polyneuropathy due to type 2 diabetes mellitus (681216419) Type 2 diabetes mellitus with diabetic polyneuropathy (E11.42) Active confirmed Vital Signs Blood pressure diastolic 76 mm Hg 06/21/2024 Height 5 ft 8 in in 06/21/2024 Blood pressure systolic 116 mm Hg 06/21/2024 Weight 176 lbs 06/21/2024 BMI 26.76 kg/m2 06/21/2024 Procedures Procedure Date Ordered Date Performed Result Body Sit e M6189-HYTWRYKK DYSTROPHIC NAILS ANY # 06/21/2024 N/A Encounters Encounter Location Date [facility] [address] [place] [address] 06/21/2024 Walker Rai Type 2 diabetes mellitus with diabetic polyneuropathy E11.42 [facility] [place] [address] [facility] [address] [place] [address] 04/02/2024 Walker Rai [facility] [place] [address] [place] [address] 06/15/2024 Walker Rai Assessments Encounter Date Diagnosis (ICD Code) Assessment Notes Treatment Notes Treatment Clinical Notes Section Notes 06/21/2024 Type 2 diabetes mellitus with diabetic polyneuropathy (ICD-10 - E11.42) Plan Of Treatment Pending Test Test Name Order Date Q6971-NKVAWYSG DYSTROPHIC NAILS ANY # Next Appt Details Provider Name:Walker Rai, 09/04/2024 03:15:00 PM, [address] [facility], [place], [address], Insurance Providers Payer Name Payer Address Payer Phone Subscriber Number Group Number Insured Name Patient Relationship to Insured Coverage Start Date Coverage End Date Nikolay [facility] [address] [place] [address] [id number] Nash Mae Self - patient is the insured Medical (General) History Medical History History ICD Code Diabetic Chicken pox Surgical History Surgery Date(Month/Year) wisdom teeth extraction vasectomy colonoscopy
--- OUTSIDE RECORDS SUMMARY | 2024-07-06 09:16 | XMS_ITS ---
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 [address] [place] [address] 06/15/2024 Walker Rai Plan Of Treatment Next Appt Details Provider Name:Walker Rai, 09/04/2024 03:15:00 PM, [address] [facility], [place], [address], Progress Notes * Nash MAEDOB:1970 (53 yo M)Acc No.[id number]:06/15/2024 Patient:?Nash MAE :1970???Age:53 Y???Sex:Male Address:[address] [place], [address] * true * Date:? Generated for Printi roxanne/Kieran/eTransmitting on:?07/06/2024 09:16 AM EST
--- OUTSIDE RECORDS SUMMARY | 2024-07-06 09:16 | XMS_ITS ---
Author Organization [facility] Address [address] [place] [address] Care Team Providers Care Gear Hobber Name Role Phone Rob Barrett Primary Care Provider Nicole hopeWalker Artis Unavailable [phone] Allergies Allergen (clinical drug ingredient) Drug/Non Drug Allergy documented on EMR Reaction Allergy Type Onset Date Status Opiate (uncoded) Unknown Allergy Act ap acetaminophen Acetaminophen Unknown Drug Allergy Active celecoxib Celecoxib Unknown Drug Allergy Active acetaminophen Tylenol Unknown Drug Allergy Act ap morphine Morphine Unknown Drug Allergy Active Eggplant Unknown Allergy Active REASON FOR VISIT At Risk Footcare Medications Medication SIG (Take, Route, Frequency, Duration) Notes Start Date End Date Status Mounjhonyro Active [place] 3 Active Social History Tobacco Use: Social [...] Polyneuropathy due to type 2 diabetes mellitus (980530679) Type 2 diabetes mellitus with diabetic polyneuropathy (E11.42) Active confirmed Vital Signs Height 5 ft 8 in in 06/21/2024 Weight 176 lbs 06/21/2024 BMI 26.76 kg/m2 06/21/2024 Blood pressure systolic 116 mm Hg 06/21/20 24 Blood pressure diastolic 76 mm Hg 024 Procedures Procedure Date Ordered Date Performed Result Body Sit e X9392-KGOOPPCN DYSTROPHIC NAILS ANY # 06/21/2024 N/A Encounters Encounter Location Date Provider Diagnosis [facility] [address] [address] 06/21/2024 Walker Fredi Type 2 diabetes ester itus with diabetic polyneuropathy E11.42 Assessments Encounter Date Diagnosis (ICD Code) Assessment Notes Treatment Notes Treatment Clinical Notes Section Notes 06/21/2024 Type 2 diabetes mellitus with diabetic polyneuropathy (ICD-10 - E11.42) Plan Of Treatment Pending Test Test Name Order Date V5395-KXNHNRON DYSTROPHIC NAILS ANY # Next Appt Details Follow Up: 2 Months, Reason: Provider Name:Walker Nunn Fredi, 09/04/2024 03:15:00 PM, [address] [place] [address], [place], [address], Procedure Notes * Category Sub-Category Detail Notes Nail Reduction Nail Reduction (-27) Trimming o f all dystrophic nails - Due to the at risk nature of the patients medical condition as documented in the exam findings, performance of this nail treatment is medically necessary as its management by an unskilled/untrained nonprofessional would put this patients foot and overall health at risk. Therefore, the dystrophic nails, in locations as stated and described in the exam 1-5 digits B/L, were debrided by the phisician of record to reduce/remove overall nail length and girth, by manual and electrical means with use of a nail nipper and/or dremel, to more viable healthy nail plate or bed tissue - G0127 Progress Notes * Nash MAEDOB:1970 (53 yo M)Acc No.[id number]:06/21/2024 Progress Note Patient:?Nash MAE Provider:?Walker Rai D.P.M. :1970???Age:53 Y???Sex:Male Oral e:06/21/2024 Address:[address] [place], [place] [id number] Pcp:PRISCILLA Soliz Subjective: * Chief Complaints: * ???At Risk Footcare * HPI: ???At Risk footcare:?Pt States Last PCP Visit:?Date?05/08/2024 * ROS:?General/Constitutional:?Nausea?denies.?Vomiting?denies.?Hunger Thirst?denies.?Loss appetite?denies.?Chills?denies.?Fatigue?denies.?Fever?denies.?Night Sweats?denies.?Unexplained weight loss?denies.?Unexplained weight gain?denies.?HEENTM:?Dentures?denies.?Dizziness?denies.?Glasses/contacts?admits.?Retinopathy?den ies.?Blurred/double vision?denies.?TMJ?denies.?Discharge/drainage?denies.?Implants?denies.?Sore throat?denies.?Dental implants?denies.?Hard of hearing ?denies.?Difficulty chewing/swallowing/speaking?denies.?Nose bleeds?denies.?Sore mouth?denies.?Respiratory:?On O xygen?denies.?Pneumonia/pleurisy?denies.?Bronchitis?denies.?Emphysema?denies.?Co ughing?denies.?Cough blood?denies.?Shortness of breath?denies.?Wheezing?denies.?Cardiovascular:?Pacemaker?denies.?MVP?denies.?WPW?denies.?CHF?denies.?Heart attack?denies.?Septal defect?denies.?Rapid beat?denies.?Chest pain ?denies.?Atrial Fib.?denies.?Murmur/Palpitations?denies.?Gastrointestinal:?Hemorrhoids?denies.?Stomach/Abdominal pain?denies.?Dark blood stool?denies.?Irritable bowel ?denies.?Constipation?denies.?Diarrhea?denies.?Hematology:?Swelling?denies.?Clots?denies.?Varicose Veins?denies.?Bruising?denies.?Bleeding problem?denies.?Genitourinary:?Blood urine?denies.?Frequent/Painfu/urination/bladder control?denies.?Kidney stones?denies.?Infection (UTI)?denies.?Nephropathy?denies.?sex trans dis (STD)?denies.?Prostate?denies.?Musculoskeletal:?Hammertoes?denies.?Bunions?denies.?Back Pain?denies.?Muscle Cramps/ Resting?denies.?Muscle cramps / walking?denies.?Generalized aches and pains?denies.?Weakness?denies.?Integ.:?Munoz?denies.?Scars?denies.?Corns/calluses?denies.?Ingrown nails?denies.?Painful nails?admits.?Open Sores?denies.?Rashes?denies.?Neurologic:?Difficulty sleeping?denies.?Brain disorder?denies.?Numbness?denies.?Balance t rouble?denies.?Confusion?denies.?Fainting/blackouts?denies.?Tingling?denies.?Adrian mors?denies.? * Medical History:? * Surgical History:?wisdom larisa th extraction vasectomy colonoscopy * Hospitalization/Major Diagno stic Procedure:?Denies Past Hospitalization * Family History:?Mother: casper munoz.?Father: alive, diagnosed with Other malignant neoplasm of unspecified site.? * Social History:?Tobacco Use:?Tobacco use other than smoking?Are you an other tobacco user??No ?Tobacco Control (Standard)?Tobacco use:?Nonsmoker ?Additional Findings: Tobacco non-user?Current nonsmoker ???Drugs/Alcohol:?Drugs?Have you used drugs other than those for medical reasons in the past 12 months??No ???Miscellaneous:?Caffeine: yes. ?Children: no. ?Exercise: yes, walking, 3-4 times per week. ?Marital status: . 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 ???Drug/Alcohol:?AUDIT-C (Standard)?Did you have a drink containing alcohol in the past year??No ?Points?0 ?Interpretation?Negative * Medications:?TakingMounjaro [place] 3 Medication List reviewed and reconciled with the patientTaking Mounjaro Taking [place] 3 Medication List reviewed and reconciled with the patient * Allergies:?TylenolMorphineCe lecoxibAcetaminophenOpiateEggplantyes[Allergies Verified] Objective: * Vitals:?Ht: 5 ft 8 in, Wt:17 6, BMI:26.76, Shoe size: 10.5, BP:116/76mm Hg, BS: 116, Ht-cm: 172.72 cm, Wt-k.83 kg. * ???Past Orders: ???Lab:HEMOGLOBIN A1C (GLYCO HEMOGLOBIN) (Order Date - 03/13/2024) (Collection Date & Time - 03/13/2024 03:02 PM) ? Value Reference Range ?TOTAL HEMOGLOBIN (HGBA1C) 6.1 * Examination: ???Ophthalmology Referral: ?DIABETES EYE EXAM?Neurological: ?SENSORY:?Neurological exam demonstrates, reduced light touch sensation, reduced sharp/dull discrimination , reduced vibration sensation, in a stocking fashion, B/L, 5.07 monofilament test performed at plantar aspects of 5 varied sites per foot shows sensation, reduced, B/L.?Nails: ?NAILS are:?Elongated, overgrown, dystrophic, lytic, greater than 3mm thick, discolored and friable with crumbly malodorous subungual debris, with dull to no pain on palpation due to neuropathy, TA, T1, T2, T3, T4, T5, T6, T7, T8, T9.?Orthopedic: ?MUSCLE STRENGTH:?5/5 all groups in a symmetrical fashion, B/L.?Vascular: ?DP PULSES (B):?3/4, B/L.?PT PULSES (B):?2/4, B/L.?CAPILLARY FILL TIME:?immediate, all digits, B/L.?TROPHIC CONDITION-TEXTURE/ELASTICITY/TURGOR/HAIR GROWTH (B):?normal, B/L.?TEMPERTURE GRADIENT (C):?normal, warm to cool, proximal to distal, B/L.?PIGMENTATION:?normal, B/L.?General Examination: ?GENERAL APPEARANCE:?Reveals a pleasant, alert, well nourished, well- developed, well hydrated individual, who demonstrates proper attention to hygiene/body habitus, and is in no acute distress, Pt serves as own historian for office visit today.?ORIENTED:?person, place, and time.? Assessment: * Assessment: 1.?Type 2 diabetes mellitus with diabetic polyneuropathy - E11.42 (Primary)??? Plan: * Treatment: * Procedures:?Nail Reduction:?Nail Reduction?(-27) Trimming of all dystrophic nails - Due to the at risk nature of the patients medical condition as documented in the exam findings, performance of this nail treatment is medically necessary as its management by an unskilled/untrained nonprofessional would put this patients foot and overall health at risk. Therefore, the dystrophic nails, in locations as stated and described in the exam 1-5 digits B/L, were debrided by the phisician of record to reduce/remove overall nail length and girth, by manual and electrical means with use of a nail nipper and/or dremel, to more viable healthy nail plate or bed tissue - G0127.? * Procedure Codes:?G0127 KARTHIK ING DYSTROPHIC NAILS ANY # * Preventive Medicine:? ??Counseling:?Diabetic Footcare:?The patient was advised against future self nail/callus care due to inherent risks for infection, loss of limb/life given diabetes.? * Follow Up:?2 Months * Images: * Sign off status: Completed true * Provider:?Walker Rai D.P.M. Date:?06/03 Generated for Zaynabi roxanne/Kieran/eTransmitting on:?07/06/2024 09:16 AM EST History and Physical Notes * HPI (History of Present Illness) Category Sub-Category Detail Notes Category Not es At Risk footcare Pt States Last PCP Visit: Date: Examination Category Sub-Category Detail Notes Category Not es Neurological SENSORY: Neurological exa m demonstrates, reduced light touch sensation, reduced sharp/dull discrimination , reduced vibration sensation, in a stocking fashion, B/L, 5.07 monofilament test performed at plantar aspects of 5 varied sites per foot shows sensation, reduced, B/L Orthopedic MUSCLE STRENGTH: 5/5 all groups in a symmetrical fashion, B/L General Examination GENERAL APPEARANCE: Reveals a pleasant, alert, well nourished, well-developed, well hydrated individual, who demonstrates proper attention to hygiene/body habitus, and is in no acute distress, Pt serves as own historian for office visit today ORIENTED: person, place, and t ar Ophthalmology Referral DIABETES EYE EXAM Procedure Perform ed:: Yes ?Date of Exam Performed: 12/14/2023 Diabetic Retinopathy Screening:: Yes Findings of Diabetic Eye Exam:: no retin opathy Vascular DP PULSES (B): 3/4, B/L PT PULSES (B): 2/4, B/L CAPILLARY FILL TIME: immediate, all digi ts, B/L TEMPERTURE GRADIENT (C): normal, warm to cool, proximal to distal, B/L TROPHIC CONDITION-TEXTURE/ELASTICITY/TURGOR/HAIR GROWTH (B): normal, B/L PIGMENTATION: normal, B/L Nails NAILS are: Elongated, overg rown, dystrophic, lytic, greater than 3mm thick, discolored and friable with crumbly malodorous subungual debris, with dull to no pain on palpation due to neuropathy, TA, T1, T2, T3, T4, T5, T6, T7, T8, T9
--- OUTSIDE RECORDS SUMMARY | 2024-07-06 09:16 | XMS_ITS ---
Author Organization [facility] Address [address] [facility] [place] [address] Care Team Providers Care Circuit Board Inspector Name Role Phone Rob Barrett Primary Care Provider Unav ailable Walker Rai Unavailable [phone] Rai pt- BCBS [place] Encounters Encounter Location [facility] [address] [address] 04/02/2024 Walker Rai Plan Of Treatment Next Appt Details Provider Name:Walker Rai, 09/04/2024 03:15:00 PM, [address] [facility], [place], [address], Progress Notes * Nash MAEDOB:1970 (53 yo M)Acc No.[id number]:04/02/2024 Patient:?Nash Mae :1970???Age:53 Y???Sex:Male Address:[address] [place], [address] * true * Date:? Generated for Printi roxanne/Kieran/eTransmitting on:?07/06/2024 09:16 AM EST
== END 2024-07-06 09:44 | disposition home or self-care (01) ==
PROVIDERS: PCP Nurse Practitioner Family; Visit Provider Physician Assistant
DX: E11.9 Type 2 diabetes mellitus without complications (principal); E78.5 Hyperlipidemia, unspecified

== ENCOUNTER → 2024-07-06 08:59 | Outpatient (BNVA) | payer BC, SELFPAY | PROVIDERS: PCP Nurse Practitioner Family; Visit Provider Physician Assistant | DX: E11.9 Type 2 diabetes mellitus without complications (principal); E78.5 Hyperlipidemia, unspecified | CPT/HCPCS: 82947; 83036 ==

== ENCOUNTER 2024-09-12 06:55 | Outpatient (REF) | payer BC, SELFPAY ==
--- OUTSIDE RECORDS SUMMARY | 2024-09-12 06:57 | XMS_ITS | Clinical Summary ---
Author Organization [facility] Address [address] [place] [address] Care Team Providers Care Vice Admiral Name Role Phone Unavailable Primary Care Provider Unavailabl e Immunizations Name Administration Dates Next Due Covid-19 (Moderna 12+) 100mcg/0.5mL dosage 08/25 Social History Tobacco Use Types Packs/Day Years Used Date Smoking Tobacco: Never Assessed Sex and Gender Information Value Date Recorded Sex Assigned at Male 08/25/2020 11:01 AM EST Gender Identity Not on file Sexual Orientation Not on file Plan of Treatment Health Maintenance Due Date Last Done Comments Hepatitis B Vaccines (1 of 3 - 3-dose series) 1970 Hepatitis C Screening 1970 Depression Screening 1982 Preventative Health Evaluation 09/28/1989 DTap / Tdap / Td (1 - Tdap) 09/28/1990 Colon Cancer Screening (Colonoscopy) 09/28/2016 Shingrix-Zoster Vaccine (1 of 2) 09/28/2021 COVID-19 Vaccine (2 - 2023-2 5 season) 2024 08/25/2020 Influenza Vaccine (#1) 2024 Pneumococcal Vaccine Aged Out No long er eligible based on patient's age to complete this topic RSV Ped < 20 months Aged Out No longe r eligible based on patient's age to complete this topic
--- OUTSIDE RECORDS SUMMARY | 2024-09-12 06:57 | XMS_ITS | Patient Health Record ---
[facility] [place] Address [address] [place] [address] Care Team Providers Care Therapeutic Specialist Name Role Phone Rob Barrett Primary Care Provider Unav Walker Diallo Unavailable [phone] Allergies Allergen (clinical drug ingredient) Drug/Non Drug [...] Performing Lab: Notes/Report: TOTAL HEMOGLOBIN (HGBA1C) 6.1 HEMOGLOBIN A1C (GLYCOHEMOGLO BIN) Reviewed date:09/04/2024 03:14:13 PM Interpretation: Performing Lab: Notes/Report: HEMOGLOBIN A1C % (HH) 5.7 Reason For Referral No Information Medications Medication SIG (Take, Route, Frequency, Duration) Notes Start Date End Date Status [place] 3 Active Mounjaro Active Social History Tobacco Use: Social History [...] Polyneuropathy due to type 2 diabetes mellitus (260299991) Type 2 diabetes mellitus with diabetic polyneuropathy (E11.42) Active confirmed Vital Signs Blood pressure diastolic 78 mm Hg 09/04/2024 Height 5ft 8 in in 09/04/2024 Blood pressure systolic 114 mm Hg 09/04/2024 Weight 174 lbs 09/04/2024 BMI 26.45 kg/m2 09/04/2024 Procedures Procedure Date Ordered Date Performed Result Body Sit e C7630-DTRXNAHH DYSTROPHIC NAILS ANY # 06/21/2024 N/A Q2767-IKAYQRQU DYSTROPHIC NAILS ANY # 09/04/2024 N/A Encounters Encounter Location Date [facility] [address] [facility]/21/2024 Walker Rai Type 2 diabetes mellitus with diabetic polyneuropathy E11.[address] [address] 09/04/2024 Walker Rai Type 2 diabetes mellitus with diabetic polyneuropathy E11.42 [facility] [address] [facility] [address] [place] [address] 04/02/2024 [facility] [address] [place] [address] 06/15/2024 Walker Rai Assessments Encounter Date Diagnosis (ICD Code) Assessment Notes Treatment Notes Treatment Clinical Notes Section Notes 06/21/2024 Type 2 diabetes mellitus with diabetic polyneuropathy (ICD-10 - E11.42) 09/04/2024 Type 2 diabetes mellitus with diabetic polyneuropathy (ICD-10 - E11.42) Plan Of Treatment Pending Test Test Name Order Date L7512-BQCMMHSW DYSTROPHIC NAILS ANY # K6108-CRUOMEIZ DYSTROPHIC NAILS ANY # Next Appt Details Provider Name:Giselle salmon, 11/12/2024 03:15:00 PM, [address] [place], [address], Insurance Providers Payer Name Payer Address Payer Phone Subscriber Number Group Number Insured Name Patient Relationship to Insured Coverage Start Date Coverage End Date Nikolay [facility] [address] [place] [address] [id number] Mae, Nash Self - patient is the insured Medical (General) History Medical History History ICD Code Diabetic Chicken pox Surgical History Surgery Date(Month/Year) wisdom teeth extraction vasectomy colonoscopy
--- OUTSIDE RECORDS SUMMARY | 2024-09-12 06:57 | XMS_ITS ---
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 Generated for Printi ng/Fairmag/eTransmitting on:?09/12/2024 06:57 AM EDT
--- OUTSIDE RECORDS SUMMARY | 2024-09-12 06:57 | XMS_ITS ---
Author Organization [facility] Adam Bootheley Address [address] [place] [address] Care Team Providers Care Inventory Technician Name Role Phone Rob Barrett Primary Care Provider Walker Perez Unavailable [phone] Allergies Allergen (clinical drug ingredient) Drug/Non Drug Allergy documented on EMR Reaction Allergy Type Onset Date Status Opiate (uncoded) Unknown Allergy Act ap acetaminophen Acetaminophen Unknown Drug Allergy Active celecoxib Celecoxib Unknown Drug Allergy Active acetaminophen Tylenol Unknown Drug Allergy Act ap morphine Morphine Unknown Drug Allergy Active Eggplant Unknown Allergy Active REASON 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 No Points 0 Interpretation Negative Vital Signs Height 5ft 8 in in 09/04/2024 Weight 174 lbs 09/04/2024 BMI 26.45 kg/m2 09/04/2024 Blood pressure systolic 114 mm Hg 09/05/19 25 Blood pressure diastolic 78 mm Hg 025 Procedures Procedure Date Ordered Date Performed Result Body Sit e Q4448-[id number] DYSTROPHIC NAILS ANY # 09/04/2024 N/A Encounters Encounter Location Date [facility] [address] [place] [address] 09/04/2024 Walker Rai Type 2 diabetes ester itus with diabetic polyneuropathy E11.42 Assessments Encounter Date Diagnosis (ICD Code) Assessment Notes Treatment Notes Treatment Clinical Notes Section Notes 09/04/2024 Type 2 diabetes mellitus with diabetic polyneuropathy (ICD-10 - E11.42) Plan Of Treatment Pending Test Test Name Order Date P5454-VUCISPIT DYSTROPHIC NAILS ANY # Next Appt Details Follow Up: 2 Months, Reason: Provider Name:Giselle salmon, 11/12/2024 03:15:00 PM, [address] [facility], [place], [address], Procedure Notes * Category Sub-Category Detail Notes Nail Reduction Nail Reduction , (-27) Trimming of all dystrophic nails - Due to the at risk nature of the patients medical condition as documented in the exam findings, performance of this nail treatment is medically necessary as its management by an unskilled/untrained nonprofessional would put this patients foot and overall health at risk. Therefore, the dystrophic nails, in locations as stated and described in the exam TA, T1, T2, T3, T4, T5, T6, T7, T8, T9 , were debrided by the phisician of record to reduce/remove overall nail length and girth, by manual and electrical means with use of a nail nipper and/or dremel, to more viable healthy nail plate or bed tissue - G0127 Progress Notes * KADEN NashDOB:1970 (53 yo M)Acc No.[id number]:09/04/2024 Progress Note Patient:?Nash MAE Provider:?Walker Rai D.P.M. 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 * Family History:?Mother: casper fonseca?Father: alive, diagnosed with Other malignant neoplasm of unspecified site.?Spouse: alive.?Non-Contributory.? * Social History:?Tobacco Use:?Tobacco use other than [...] the past year??No ?Points?0 ?Interpretation?Negative * Medications:?TakingMounjaro [place] 3 Medication List reviewed and reconciled with the patientTaking Mounjaro Taking Gas[place] 3 Medication List reviewed and reconciled with the patient * Allergies:?TylenolMorphineCe lecoxibAcetaminophenOpiateEggplantyes[Allergies Verified] Objective: * Vitals:?Ht:5ft 8 in, Wt:174, BMI:26.45, Shoe size:10.5, BP:114/78mm Hg, BS:102, Ht-cm: 172.72 cm, Wt-k.93 kg. * ???Past Orders: ???Lab:HEMOGLOBIN A1C (GLYCO HEMOGLOBIN) (Order Date - 07/06/2024) (Collection Date & Time - 07/06/2024 03:13 PM) ? Value Reference Range ?HEMOGLOBIN A1C % (HH) 5.7 * Examination: ???Ophthalmology Referral: ?DIABETES EYE EXAM?Procedure Performed:?Yes ?Date of Exam Performed?01/16/2024 ?Diabetic Retinopathy Screening:?Yes ?Retinal Screening Performed:?Yes?Neurological: ?SENSORY:?Neurological exam demonstrates, reduced light touch sensation, [...] STRENGTH:?5/5 all groups in a symmetrical fashion, B/L.?FOOTWEAR:?Shoe gear were inspected and noted to be worn, but in good condition giving proper support at the present time.?Vascular: ?DP PULSES (B):?3/4, B/L.?PT PULSES (B):?2/, B/L.?CAPILLARY FILL TIME:?immediate, all digits, B/L.?TROPHIC CONDITION-TEXTURE/ELASTICITY/TURGOR/HAIR GROWTH (B):?normal, B/L.?TEMPERTURE GRADIENT (C):?normal, warm to cool, proximal to distal, B/L.?PIGMENTATION:?normal, B/L.?General Examination: ?GENERAL APPEARANCE:?Reveals a pleasant, alert, well nourished, well- developed, well hydrated individual, who demonstrates proper attention to hygiene/body habitus, and is in no acute distress, Pt serves as own historian for office visit today.?ORIENTED:?person, place, and time.?FOOT EXAM:?Lower Extremity Neurological Exam performed:?Yes ?Visual exam of foot performed:?Yes ?Date?09/04/2024 ?Sensory testing performed:?sensations diminished ?Sensory and motor testing performed:?strength normal ?Pedal pulse taking performed:?2+ ?Footwear Evaluation?Footwear Evaluation performed:?Yes??? Assessment: * Assessment: 1.?Type 2 diabetes mellitus with diabetic polyneuropathy - E11.42 (Primary)??? Plan: * Treatment: * Procedures:?Nail Reduction:?Nail Reduction?, (-27) Trimming of all dystrophic nails - Due to the at risk nature of the patients medical condition as documented in the exam findings, performance of this nail treatment is medically necessary as its management by an unskilled/untrained nonprofessional would put this patients foot and overall health at risk. Therefore, the dystrophic nails, in locations as stated and described in the exam TA, T1, T2, T3, T4, T5, T6, T7, T8, T9 , were debrided by the phisician of record [...] status: Completed true * Provider:?Walker Rai D.P.M. Date:?10/2024 Generated for Stella oliveira/Kieran/Briana on:?09/12/2024 06:57 AM EDT History and Physical Notes * Examination Category Sub-Category Detail Notes Category Not es Neurological SENSORY: Neurological exa m demonstrates, reduced light touch sensation, reduced sharp/dull discrimination , reduced vibration sensation, in a stocking fashion, B/L, 5.07 monofilament test performed at plantar aspects of 5 varied sites per foot shows sensation, reduced, B/L Orthopedic FOOTWEAR: Shoe gear were i nspected and noted to be worn, but in good condition giving proper support at the present time MUSCLE STRENGTH: 5/5 all groups in a symmetrical fashion, B/L General Examination GENERAL APPEARANCE: Reveals a pleasant, alert, well nourished, well-developed, well hydrated individual, who demonstrates proper attention to hygiene/body habitus, and is in no acute distress, Pt serves as own historian for office visit today FOOT EXAM: Lower Extremity Neurological Exa m performed:: Yes Visual exam of foot performed:: Yes Date: 09/04/2024 Sensory testing performed:: sensations d iminished Sensory and motor testing performed:: [facility] normal Pedal pulse taking performed:: 2+ ORIENTED: person, place, and t ar Footwear Evaluation Footwear Evaluation performe d:: Yes Ophthalmology Referral DIABETES EYE EXAM Procedure Perform ed:: Yes ?Date of Exam Performed: 01/16/2024 Diabetic Retinopathy Screening:: Yes Retinal Screening Performed:: Yes Vascular DP PULSES (B): 3/4, B/L PT [...]
--- OUTSIDE RECORDS SUMMARY | 2024-09-12 06:57 | XMS_ITS ---
Author Name [facility] Organization Unknown Care Team Organization Name Specialty Phone Email Start Date End Da alvaro Office of the [employer] Stack [employer] ([facility]) 05/18/2024
--- OUTSIDE RECORDS SUMMARY | 2024-09-12 06:58 | XMS_ITS ---
[facility] Address [address] [place] [address] Care Team Providers Care Vehicle Assembler Name Role Phone Rob Barrett Primary Care Provider Nicole hopeWalker Artis Unavailable [phone] Allergies Allergen (clinical drug ingredient) Drug/Non Drug [...] Start Date End Date Status Mounjhonyro Active Chili 3 Active Social History Tobacco Use: Social [...] Polyneuropathy due to type 2 diabetes mellitus ([id number]) Type 2 diabetes mellitus with diabetic polyneuropathy (E11.42) Active confirmed Vital Signs Height 5 ft 8 in in 06/21/2024 Weight 176 lbs 06/21/2024 BMI 26.76 kg/m2 06/21/2024 Blood pressure systolic 116 mm Hg 06/21/20 24 Blood pressure diastolic 76 mm Hg 024 Procedures Procedure Date Ordered Date Performed Result Body Sit e H5600-[id number] DYSTROPHIC NAILS ANY # 06/21/2024 N/A Encounters Encounter Location Date Provider Diagnosis [facility] [place] [address] [place] [address] 06/21/2024 Walker Rai Type 2 diabetes ester itus with diabetic polyneuropathy E11.42 Assessments Encounter Date Diagnosis (ICD Code) Assessment Notes Treatment Notes Treatment Clinical Notes Section Notes 06/21/2024 Type 2 diabetes mellitus with diabetic polyneuropathy (ICD-10 - E11.42) Plan Of Treatment Pending Test Test Name Order Date G6442-KVOXTVGD DYSTROPHIC NAILS ANY # Next Appt Details Follow Up: 2 Months, Reason: Provider Name:Giselle salmon, 11/12/2024 03:15:00 PM, [address] [facility], [place], [address], Procedure Notes * Category Sub-Category Detail Notes [...] Notes * Nash MAEDOB:1970 (53 yo M)Acc No.[id number]:06/21/2024 Progress Note Patient:?KADEN Nash Provider:?Walker Rai D.P.M. :1970???Age:53 Y???Sex:Male Oral e:06/21/2024 Address:[address] [place], [place] [id number] Pcp:PRISCILLA Soliz Subjective: * Chief Complaints: * [...] the past year??No ?Points?0 ?Interpretation?Negative * Medications:?TakingMounjaro Chili 3 Medication List reviewed and reconciled with the patientTaking Mounjaro Taking Chili 3 Medication List reviewed and reconciled with [...] 6.1 * Examination: ???Ophthalmology Referral: ?DIABETES EYE EXAM?Procedure Performed:?Yes ?Date of Exam Performed?12/14/2023 ?Diabetic Retinopathy Screening:?Yes ?Findings of Diabetic Eye Exam:?no retinopathy?Neurological: ?SENSORY:?Neurological exam demonstrates, reduced light touch sensation, [...] Rai D.P.M. Date:?06/03 Generated for Zaynabi roxanne/Kieran/eTransmitting on:?09/12/2024 06:57 AM EDT History and Physical Notes * HPI (History [...]
[2024-09-12 07:14] LABS: MANUAL DIFF FLAG NO
[2024-09-12 07:57] LABS: Basophils Absolute Auto 0.1 X10*3/uL (0.0-0.2); Basophils Percent Auto 1.1 % (0-2); Eosinophils Absolute Auto 0.1 X10*3/uL (0.0-0.4); Eosinophils Percent Auto 2.3 % (0-4); Hematocrit 39.9 % (42.0-52.0); Hemoglobin 13.1 g/dl (14.0-18.0); Imm Gran Abs Auto 0.01 X10*3/uL (0.00-0.03); Imm Gran Pct Auto 0.2 % (0.0-0.4); Lymphocytes Absolute Auto 1.7 X10*3/uL (1.2-4.9); Lymphocytes Percent Auto 29.9 % (20-40); Mean Corpuscular HGB Conc 32.8 g/dl (31.0-36.0); Mean Corpuscular Hemoglobin 27.5 pg (27.0-33.0); Mean Corpuscular Volume 83.6 fL (80.0-98.0); Mean Platelet Volume 10.9 fL (9.4-12.4); Monocytes Absolute Auto 0.5 X10*3/uL (0.1-1.2); Monocytes Percent Auto 9.2 % (2-11); Neutrophils Absolute Auto 3.2 x10*3/uL (2.0-8.3); Neutrophils Percent Auto 57.3 % (45-73); Platelet Count 201 X10*3/uL (160-400); Red Blood Count 4.77 X10*6/uL (4.60-5.80); White Blood Count 5.6 X10*3/uL (4.8-10.8)
[2024-09-12 08:06] LABS: Appearance Urine Clear; Color Urine Yellow; Glucose Urine UA Negative (Negative); Leukocyte Esterase Urine Negative (Negative); Nitrite Urine Negative (Negative); PH 6.5 (5.0-9.0); UMIC TRIGGER UACC YES; Urine Blood Small (1+) (Negative); Urine Ketones Negative (Negative); Urine Protein Negative (Neg-Trace)
[2024-09-12 08:11] LABS: Bacteria Urine None Seen (None Seen); Hyaline Casts Urine 0-2 /LPF (0-2); Squamous Epithelial Cell Urine 0-2 /HPF (0-2); WBC Urine 0-5 /HPF (0-5)
[2024-09-12 08:24] LABS: Estimated Average Glucose 120 mg/dL; Hemoglobin A1c % 5.8 % (<6.0)
[2024-09-12 08:40] LABS: Microalbumin Urine < 5.0 mg/L
[2024-09-12 08:45] LABS: Alanine Aminotransferase 50 U/L (0-40); Albumin Level 4.2 g/dL (3.5-5.0); Alkaline Phosphatase 57 U/L (39-117); Anion Gap 11 (12-20); Aspartate Amino Transferase 39 U/L (5-37); Bilirubin Total 0.8 mg/dL (0.0-1.0); Blood Urea Nitrogen 12 mg/dL (9-16); Calcium 8.8 mg/dL (8.4-10.2); Carbon Dioxide 27 mmol/L (22-29); Chloride 105 mmol/L (96-108); Cholesterol 193 mg/dL (<200); Estimated Glomerular Filt Rate > 60; Glucose Fasting 112 mg/dL (60-99); HDL Cholesterol 41 mg/dL (>40); LDL Cholesterol Calculated 122 mg/dL (<100); Potassium 3.8 mmol/L (3.3-5.1); Sodium 139 mmol/L (135-145); Total Protein 7.2 g/dL (6.5-8.0); Triglycerides 152 mg/dL (<150)
[2024-09-12 08:59] LABS: TSH reflex Free T4 1.78 uIU/mL (0.32-4.0)
[2024-09-12 09:17] LABS: Prostate Specific Antigen Scr 0.72 ng/mL (<0.05-4.0)
[2024-09-13 14:45] LABS: Adenovirus PCR Not Detected (Not Detect.); Bordetella parapertussis PCR Not Detected (Not Detect.); Bordetella pertussis PCR Not Detected (Not Detect.); Chlamydia pneumoniae PCR Not Detected (Not Detect.); Coronavirus 229E PCR Not Detected (Not Detect.); Coronavirus HKU1 PCR Not Detected (Not Detect.); Coronavirus NL63 PCR Not Detected (Not Detect.); Coronavirus OC43 PCR Not Detected (Not Detect.); Human metapneumovirus PCR Not Detected (Not Detect.); Influenza A PCR Not Detected (Not Detect.); Influenza B PCR Not Detected (Not Detect.); Mycoplasma pneumoniae PCR Not Detected (Not Detect.); Parainfluenza 1 PCR Not Detected (Not Detect.); Parainfluenza 2 PCR Not Detected (Not Detect.); Parainfluenza 3 PCR Not Detected (Not Detect.); Parainfluenza 4 PCR Not Detected (Not Detect.); RSV PCR Not Detected (Not Detect.); Rhino/Enterovirus PCR Not Detected (Not Detect.)
[2024-09-13 14:53] LABS: SARS-CoV-2 PCR Not Detected (Not Detect.)
== END 2024-09-12 06:56 | disposition home or self-care (01) ==
LOC: HO.LAB 06:55
PROVIDERS: Physician Assistant; PCP Nurse Practitioner Family; Visit Provider Nurse Practitioner Family
DX: R06.2 Wheezing (principal); D64.9 Anemia, unspecified; F52.0 Hypoactive sexual desire disorder; E11.9 Type 2 diabetes mellitus without complications; E78.5 Hyperlipidemia, unspecified; K76.0 Fatty (change of) liver, not elsewhere classified; Z12.5 Encounter for screening for malignant neoplasm of prostate
CPT/HCPCS: 36415; 80053; 80061; 81001; 81003; 82043; 82570; 83036; 84153; 84443; 85025; 87633; 96127

== ENCOUNTER 2024-09-12 13:49 | Outpatient (AMB) | payer BC, SELFPAY ==
--- NOTE | 2024-09-12 13:51 | A.OFFPC_ITS ---
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 Required: No Accompanied by: Self / Same As Patient Allergies acetaminophen [From Percocet] Allergy (Severe, Verified 09/12/24 15:04) ANAPHYLAXIS eggplant Allergy (Severe, Verified 09/12/24 15:04) Itching, swelling, difficulty breathing oxycodone [Percocet] Allergy (Severe, Verified 09/12/24 15:04) Anaphylaxis celecoxib [Celebrex] Allergy (Unknown, Verified 09/12/24 15:04) unknown opiates Allergy (Unknown, Verified 09/12/24 15:04) unknown Medication List - Last Reconciled 09/12/24 by Rob Huff, MEMBERSHIP SOLICITOR- albuterol sulfate 90 mcg/actuation 1 inh inhalation QID PRN blood-glucose meter,continuous (Dexcom G7 Passenger Service Representative) As directed blood-glucose sensor (Dexcom G7 Sensor device) DIRECTED CHANGE EVERY 10 DAYS epinephrine (EpiPen 2-Wong) 0.3 mg (0.3 mL) IM Q10M PRN 30 days ezetimibe 10 mg PO DAILY 90 days glucagon 3 mg/actuation (Baqsimi) 3 mg intranasal ONCE PRN 1 day lancets (OneTouch Delica Lancets) test blood sugar twice a day omega-3 acid ethyl esters 1 cap PO BID OneTouch Ultra Test (blood sugar diagnostic) Test blood sugar twice a day NS OneTouch Ultra2 Meter (blood-glucose meter) to test blood sugars as directed NS tirzepatide (Mounjaro) 7.5 mg (0.5 mL) subcut QWEEK 90 days Tobacco use date assessed: 09/12/24 Dental Screening Dental Screen Date: 09/12/24 Did you have a dental visit in the last 12 months?: Yes Did you have a dental problem in the last 6 months where you did not have access to dental care?: No Was dental information given to patient?: Patient has dentist HPI 6M F/U HPI Details Chief Complaint The patient reports experiencing fatigue, wheezing, and reduced sexual desire. History of Present Illness The patient is a 53-year-old male presenting for follow-up on several health issues, including anemia, wheezing, and decreased sexual desire. He was noted to have normocytic anemia on recent lab tests, correlating with his experience of fatigue. The patient's history includes microscopic hematuria addressed during his teenage years, along with kidney cysts that have been intermittently monitored. He does use a CPAP. There is an established diagnosis of fatty liver disease with recent fluctuations in liver enzymes. He is being treated for diabetes under endocrinology care and shows no signs of neuropathy with positive monofilament testing for foot sensation. The patient?s LDL cholesterol is slightly elevated. He has a slight expiratory wheeze primarily on the left side, associated with crackles to left base. Although there is no current respiratory distress or evidence of infection, childhood asthma is suspected. Consequently, he will undergo pulmonary function and allergy testing to establish a clear diagnosis. Social History Health Maintenance - LDL cholesterol elevation noted at 122 mg/dL. - Discussion of already established fatt y liver disease. Review of Systems - Constitutional: Reports fatigue. - Respiratory: Denies shortness of breat h, denies fevers, chills, cp - Gastrointestinal: Denies nausea, vomit ing, and abdominal pain. - Genitourinary: Reports lack of sexual desire. - Hematologic: Denies blood in stool. Physical Exam General: Cooperative, healthy appearing, comfortable, no acute distress and well developed Orientation: Patient oriented x3 Limitations: No limitations Head: Normal to inspection Ears: Hearing grossly normal bilaterally Nose: Normal external nose present Face and sinus: Normal facial exam Eyes: Appearance normal, both eyes and all related structures Neck: Normal visual inspection and Yes full ROM Respiratory: Slight wheezing (left), expiratory on the left side, with crackles in the left base Cardiovascular: Regular rate and rhythm. Normal S1 and S2 GI: Normal to inspection. Soft to palpation and nontender Skin: No rashes or lesions noted Neuro: Patient oriented x3 Extremities: Feet intact, positive sensation with the use of monofilament Results - Labs: Normocytic anemia noted in recen t laboratory tests. - No additional diagnostics were discuss ed during the conversation. Plan A comprehensive plan has been developed to evaluate and manage the patient?s identified health issues. Further testing for normocytic anemia, respiratory function tests due to wheezing, and hormone analysis for sexual health issues/ fatigue are to be pursued. Management of diabetes continues under endocrinology supervision, while addressing elevated LDL cholesterol through potential lifestyle adjustments remains critical, ezetimibe restarted Discussion Notes During the visit, I discussed with the patient the current findings and our plan moving forward. We reviewed the causes and implications of normocytic anemia and the necessity of further diagnostic workup. The potential asthma-like symptoms necessitate pulmonary and allergy testing to confirm or rule out airway disease. Viral swab also performed. I explained the purpose and need for testosterone testing owing to his reported lack of sexual desire/fatigue, even decrease in muscle mass. We also discussed existing conditions like diabetes and fatty liver management. Future evaluations for the slightly elevated LDL were considered, aiming at risk prevention and health optimization (exercise, diet, meds). All options, including the necessity of follow-up care and the importance of monitoring his health status, were communicated. The patient agreed to proceed with the proposed plans and is informed about potential follow-up timelines. Patient Instructions - Undergo further blood tests to investi gate anemia. - Complete pulmonary function tests and allergy tests scheduled. - Monitor blood glucose as guided by end ocrinology. - Follow recommendations for managing el evated cholesterol. - Schedule a testosterone level assessme nt. - Report any acute changes in respirator y or sexual health. - Maintain a balanced diet and consider lifestyle changes/med to manage cholesterol levels. [facility] Medical History Weight loss Shortness of breath Pain of left thumb Snoring Family history of colon cancer Nocturnal hypoxemia Daytime sleepiness URI (upper respiratory infection) Type II diabetes mellitus, well controlled Diverticulosis Elevated cholesterol DM type 2 (diabetes mellitus, type 2) Surgical History Hx of colonoscopy [place] teeth extracted H/O vasectomy Family History Mother No problems noted. Father Colon cancer Social History Housing: House Comment: left eye, better Patient Tobacco Use Status: Never used Tobacco e-Cigarette/Vaping Use: Never Used Second Hand Smoke Exposure: No Current occupational status: employed Current occupation: left handed Cognitive needs: No Hearing needs: No Vision needs: No Questionnaire PHQ-9 Over the last 2 weeks, how often have you been bothered by any of the following problems? 1. Little interest or pleasure in doing things: not at all 2. Feeling down, depressed, or hopeless: not at all 3. Trouble falling or staying asleep, or sleeping too much: not at all 4. Feeling tired or having little energy: not at all 5. Poor appetite or overeating: not at all 6. Feeling bad about yourself - or that you are a failure or have let yourself or your family down: not at all 7. Trouble concentrating on things, such as reading the newspaper or watching television: not at all 8. Moving or speaking so slowly that other people could have noticed. Or the opposite - being so fidgety or restless that you have been moving around a lot more than usual: not at all 9. Thoughts that you would be better off or of hurting yourself in some way: not at all Total score: 0 Depression Screening Interpretation: Negative Depression Screening Done: Yes 30067 - PHQ-9 Billing: Yes Source: Developed by Drs. Suraj Strong, Ewa Shearer, Mahamed Parkinson and colleagues, with an educational nigel from [employer]. Thrive Questionnaire Date Thrive assessed: 09/12/24 I am a: Patient What is your living situation today?: I have a steady place to live Within the past 12 months, did the food you bought not last and you didn't have the money to get more?: Never true Within the past 12 months, did you worry whether your food would run out before you got money to buy more?: Never true Do you have trouble paying for medicines?: No Do you have trouble getting transportation to medical appointments?: No Do you have trouble paying your heating and electricity bill?: No Do you have trouble taking care of your child, family member or friend?: No Do you have trouble with day-to-day activities such as bathing, preparing meals, shopping, managing finances, etc.?: No Are you currently unemployed and looking for a job?: No Are you interested in more education?: No Please select the resources that you would like help with: None Currently or been in a relationship where the following occur: No concerns reported THRIVE Score: 0 AUDIT C Alcohol Use Questionnaire (AUDIT-C) 1. How often do you have a drink containing alcohol?: Never 3. How often do you have six or more drinks on one occasion?: Never Total Score: 0 Score Reviewed/Action Taken: Yes TIMMY-7 AMB Questionnaire TIMMY-7 Date TIMMY - 7 assessed: 09/12/24 Feeling nervous, anxious, or on edge: 0 = Not at all Not being able to stop or control worryin = Not at all Worrying too much about different things: 0 = Not at all Trouble relaxin = Not at all Being so restless that it is hard to sit still: 0 = Not at all Becoming easily annoyed or irritable: 0 = Not at all Feeling afraid as if something awful might happen: 0 = Not at all Total TIMMY-7 score (0-4 normal; 5-9 mild; 10-14 moderate; 15-21 severe): 0 Source: Developed by Drs. Suraj Strong, Ewa Shearer, Mahamed Parkinson and colleagues, with an educational nigel from [employer]. TIMMY-7 Assessment Billing TIMMY-7 Assessment Tool: TIMMY-7 Assessment 18330 Physical exam (Primary Care) Vital Signs: Last Vital Signs Pulse 80 09/12/24 13:52 BP 118/76 09/12/24 13:52 Pulse Ox 98 09/12/24 13:52 BMI result Body Mass Index 26.3 Tobacco/Smoking Status: Tobacco use Status Tobacco use date assessed 09/12/24 09/12/24 13:54 Patient Tobacco Use Status Never used Tobacco 09/12/24 13:54 e-Cigarette/Vaping Use Never Used 09/12/24 13:54 PHQ-9: PHQ-9 Score PHQ-9: Total score 0 09/12/24 13:54 Depression Screening Interpretation: Negative Thrive Assessment: Date of Thrive Assessment Date Thrive assessed 09/12/24 09/12/24 13:54 Currently or been in a relationship where the following occur: No concerns re ported Coding Level of Care Code Est Pt Level 4 (08063) Diagnoses Anemia D64.9 Lack of sexual desire F52.0 Wheezing R06.2 Additional Codes TIMMY-7 Assessment Billing - TIMMY-7 Assessment Tool: TIMMY-7 Assessment 01270 ([id number]) PHQ-9 - 60033 - PHQ-9 Billing: Yes ([id number]) Assessment & Plan Assessment & Plan (1) Anemia: Code(s): D64.9 - Anemia, unspecified Category: Medical (2) Lack of sexual desire: Code(s): F52.0 - Hypoactive sexual desire disorder Category: Medical (3) Wheezing: Code(s): R06.2 - Wheezing Category: Medical Plan . Orders: Orders Complete Blood Count Auto Diff Today D64.9 - Anemia, unspecified IRON PROFILE Today D64.9 - Anemia, unspecified Ferritin Today D64.9 - Anemia, unspecified Vitamin B12 and Folate Today D64.9 - Anemia, unspecified Hemoglobin Electrophoresis Today D64.9 - Anemia, unspecified Protein Electrophoresis, Serum Today D64.9 - Anemia, unspecified Immunofixation Pnl, Serum Today D64.9 - Anemia, unspecified Testosterone, Free/Total Today F52.0 - Hypoactive sexual desire disorder Follicle Stimulating Hormone Today F52.0 - Hypoactive sexual desire disorder Lutenizing Hormone Today F52.0 - Hypoactive sexual desire disorder Sex Hormone Binding Globulin Today F52.0 - Hypoactive sexual desire disorder XR chest 2V Today R06.2 - Wheezing Immunoglobulin E Today R06.2 - Wheezing Resp Allergy Profile Region I Today R06.2 - Wheezing PFT pulmonary function test Today R06.2 - Wheezing Lactate Dehydrogenase Today D64.9 - Anemia, unspecified IDRIS Reflex Titer and Pattern Today D64.9 - Anemia, unspecified Resp [place]ogen [place] [facility] [place] R06.2 - Wheezing Medications: New ezetimibe 10 mg PO DAILY 90 days 90 tabs 0RF
[2024-09-12 13:52] VITALS: BP 118/76; PULSE 80; O2SAT 98; BMI 26.3
--- OUTSIDE RECORDS SUMMARY | 2024-09-12 16:18 | XMS_ITS | Clinical Summary ---
Author Organization [facility] Address [address] [place] [address] Care Team Providers Care Pants Maker Name Role Phone Unavailable Primary Care Provider [...]
== END 2024-09-12 15:25 | disposition home or self-care (01) ==
LOC: HO.HMCC 13:50
PROVIDERS: PCP Nurse Practitioner Family; Visit Provider Nurse Practitioner Family
DX: D64.9 Anemia, unspecified (principal); F52.0 Hypoactive sexual desire disorder; R06.2 Wheezing

== ENCOUNTER 2024-09-12 14:54 | Outpatient (REF) | payer BC, SELFPAY ==
--- NOTE | ~2024-09-12 | XR_ITS ---
EXAMINATION: XR CHEST 2 VIEWS HISTORY: R06.2 - Wheezing COMPARISON: Comparison is made with the prior examination dated 04/08/2021. FINDINGS: PA and lateral views of the chest are submitted. The lungs are expanded and clear. There is no pleural effusion, pneumothorax, or pulmonary vascular congestion. The heart is normal in size. The bones are intact. XR/XR chest 2V IMPRESSION: No acute cardiopulmonary abnormality. Electronically signed by: Suraj Menjivar MD 09/13/2024 07:34 AM EDT
[2024-09-12 16:21] LABS: MANUAL DIFF FLAG NO
[2024-09-12 16:34] LABS: Basophils Absolute Auto 0.1 X10*3/uL (0.0-0.2); Basophils Percent Auto 1.5 % (0-2); Eosinophils Absolute Auto 0.1 X10*3/uL (0.0-0.4); Eosinophils Percent Auto 1.5 % (0-4); Hemoglobin 14.7 g/dl (14.0-18.0); Imm Gran Abs Auto 0.01 X10*3/uL (0.00-0.03); Imm Gran Pct Auto 0.2 % (0.0-0.4); Lymphocytes Absolute Auto 1.6 X10*3/uL (1.2-4.9); Lymphocytes Percent Auto 30.5 % (20-40); Mean Corpuscular HGB Conc 33.4 g/dl (31.0-36.0); Mean Corpuscular Hemoglobin 27.5 pg (27.0-33.0); Mean Corpuscular Volume 82.4 fL (80.0-98.0); Mean Platelet Volume 10.9 fL (9.4-12.4); Monocytes Absolute Auto 0.4 X10*3/uL (0.1-1.2); Monocytes Percent Auto 7.6 % (2-11); Neutrophils Absolute Auto 3.2 x10*3/uL (2.0-8.3); Neutrophils Percent Auto 58.7 % (45-73); Platelet Count 220 X10*3/uL (160-400); Red Blood Count 5.34 X10*6/uL (4.60-5.80); Red Cell Distribution Width 12.9 % (11.0-16.0); White Blood Count 5.4 X10*3/uL (4.8-10.8)
[2024-09-12 17:04] LABS: Iron 91 mcg/dL (45-160); Lactate Dehydrogenase 207 U/L (118-273); Percent Iron Saturation 31 % (15-50); Total Iron Binding Capacity 291 mcg/dL (228-428); Unsaturated Iron Binding 200 ug/dL
[2024-09-12 17:20] LABS: Ferritin 327 ng/mL (20-250)
--- OUTSIDE RECORDS SUMMARY | 2024-09-12 17:31 | XMS_ITS | Clinical Summary ---
Author Organization [facility] Address [address] [place] [address] Care Team Providers Care Relay Technician Name Role Phone Unavailable Primary Care Provider [...]
[2024-09-12 17:33] LABS: Folate 12.1 ng/mL (> or = 4.0); Vitamin B12 889 pg/mL (200-900)
[2024-09-13 05:39] LABS: Sex Hormone Binding Globulin 21 nmol/L (10-50)
[2024-09-13 05:58] LABS: Follicle Stimulating Hormone 7.8 mIU/mL (1.4-12.8); Lutenizing Hormone 3.3 mIU/mL (1.5-9.3)
[2024-09-14 10:18] LABS: Prot Elec - Alpha1 0.2 g/dL (0.2-0.3); Prot Elec - Alpha2 0.5 g/dL (0.5-0.9); Prot Elec - Beta 1 0.4 g/dL (0.4-0.6); Prot Elec - Beta 2 0.4 g/dL (0.2-0.5); Prot Elec - Gamma 1.2 g/dL (0.8-1.7); Prot Elec - Total Protein 7.6 g/dL (6.1-8.1)
[2024-09-14 23:19] LABS: IgA 244 mg/dL (47-310); IgG 1401 mg/dL (600-1640); IgM 62 mg/dL (50-300)
[2024-09-17 14:53] LABS: Hematocrit 44.2 % (38.5-50.0); Hemoglobin 14.8 g/dL (13.2-17.1); MCH 27.9 pg (27.0-33.0); MCV 83.4 fL (80.0-100.0); RDW 12.9 % (11.0-15.0)
[2024-09-18 10:43] LABS: Anti Nuclear Antibody Screen NEGATIVE (NEGATIVE)
[2024-09-19 23:18] LABS: Class Alternaria alternata 0; Class Aspergillus fumigatus 0; Class Bermuda Grass 0; Class Birch 0; Class Cat Dander 0; Class Cladosporium herbarum 0; Class Cockroach 1; Class Common Ragweed 0; Class Cottonwood 0; Class Derm. pterony 0/1; Class Dermatophagoides farinae 0/1; Class Dog Dander 0; Class Elm 0; Class Maple Box Elder 0; Class Mountain Cedar 0; Class Mouse Urine Protein 0; Class Mugwort 0; Class Oak 0; Class Penicillium crysogenum 0; Class Rough Pigweed 0; Class Sheep Sorrel 0; Class Sycamore 0; Class Timothy Grass 0; Class Walnut Tree 0; Class White Ash 0; Class White Mulberry 0; D002 - IgE D farinae 0.33 kU/L; E001 - IgE Cat Dander <0.10 kU/L; E005 - IgE Dog Dander <0.10 kU/L; E072-IgE Mouse Urine <0.10 kU/L; G002 IgE Bermuda Grass <0.10 kU/L; G006 - IgE Timothy Grass <0.10 kU/L; I006-IgE Cockroach, German 0.39 kU/L; Immunoglobulin E 37 kU/L (<OR=114); M001 IgE Penicillium chrysogen <0.10 kU/L; M002 - IgE Cladosporium herbar <0.10 kU/L; M003 - IgE Aspergillus fumigat <0.10 kU/L; M006 - IgE Alternaria alternat <0.10 kU/L; T001 IgE Maple/Box Elder <0.10 kU/L; T003 IgE Common Silver Birch <0.10 kU/L; T006 - IgE Cedar, Mountain <0.10 kU/L; T007 - IgE Oak, White <0.10 kU/L; T008 IgE Elm, American <0.10 kU/L; T010 - IgE Walnut <0.10 kU/L; T011 - IgE Maple Leaf Sycamore <0.10 kU/L; T014 - IgE Cottonwood <0.10 kU/L; T015 - IgE Ash, White <0.10 kU/L; T070 - IgE White Mulberry <0.10 kU/L; W001 - IgE Ragweed, Short <0.10 kU/L; W006 - IgE Mugwort <0.10 kU/L; W014 IgE Pigweed, Common <0.10 kU/L; W018 IgE Sheep Sorrel <0.10 kU/L
[2024-09-20 16:33] LABS: Testosterone, Free 53.3 pg/mL (35.0-155.0); Testosterone, Total 331 ng/dL (250-1100)
== END 2024-09-12 14:55 | disposition home or self-care (01) ==
LOC: HO.HMGCX 14:54
PROVIDERS: PCP Nurse Practitioner Family; Visit Provider Nurse Practitioner Family
DX: R06.2 Wheezing (principal); D64.9 Anemia, unspecified; F52.0 Hypoactive sexual desire disorder
CPT/HCPCS: 36415; 71046; 82607; 82728; 82746; 82784; 82785; 83001; 83002; 83020; 83540; 83615; 84165; 84270; 84402; 84403; 85014; 85018; 85025; 85041; 86003; 86038; 86334

== ENCOUNTER → 2024-09-12 14:57 | Outpatient (BNV) | payer BC, SELFPAY | PROVIDERS: PCP Nurse Practitioner Family; Visit Provider Radiology Diagnostic Radiology | DX: R06.2 Wheezing (principal) | CPT/HCPCS: 71046 ==

== ENCOUNTER → 2024-09-27 14:57 | Outpatient (AMB) | payer BC, SELFPAY ==
--- NOTE | 2024-09-27 15:35 | MHC.OFFVIS ---
Vital Signs 09/27/24 15:38 BP 120/84 Pulse 97 Pulse Source Pulse Oximeter Pulse Oximetry (%) 98 Oxygen Delivery Method Room Air Intake Visit Reasons: 6mo F/U Dietary Supervisor Required: No Accompanied by: Self / Same As Patient Allergies acetaminophen [From Percocet] Allergy (Severe, Verified 09/12/24 15:04) ANAPHYLAXIS eggplant Allergy (Severe, Verified 09/12/24 15:04) Itching, swelling, difficulty breathing oxycodone [Percocet] Allergy (Severe, Verified 09/12/24 15:04) Anaphylaxis celecoxib [Celebrex] Allergy (Unknown, Verified 09/12/24 15:04) unknown opiates Allergy (Unknown, Verified 09/12/24 15:04) unknown HPI Comments Details: History of Present Illness The patient is a 53-year-old male presenting with obstructive sleep apnea. Regular use of CPAP machine with 99% compliance. Reports occasional condensation in the nosepiece. Residual events one per hour. Received older model CPAP device a year ago. No other issues reported. Review of Systems - Respiratory: Denies any issues with breathing at night, barring occasional events when sick. Physical Exam CPAP compliance review: Does patient have sufficient PAP supplies? Yes Does patient clean PAP supplies on a regular basis? Yes Does the patient use distilled water in their PAP machine water reservoir? Yes PAP compliance report reviewed. Compliance report date range: 06/22/2024-09/19/2024 Overall usage: 99 percent Usage greater than 4 hours: 99 percent PAP setting: CPAP 6 cmH2O Average usage on days used: 1 hour and 1 minute Average mask leakage: 1 LPM Residual AHI: 1 per hour Discussion Notes During the discussion, I acknowledged the patient's concerns regarding his wait time and appointment scheduling issues. We reviewed his current management of obstructive sleep apnea with a CPAP machine. Despite minor condensation issues in the nosepiece, the patient's compliance and overall device effectiveness were validated. Although the patient expressed disappointment in receiving an older CPAP model, I explained that newer models may not have been accessible during the time it was issued. I educated the patient on adjusting the humidity settings to mitigate condensation, and I will place an order for new CPAP supplies. I advised following up in one year or sooner if issues arise. Plan - Continue CPAP therapy. Adjusted humidity settings to address condensation- changed from auto 4 to manual 3. New supplies order placed. Follow up in one year. Current therapy effective, no pressure setting changes needed. - Continue to use CPAP 6cmH2O w/ EPR 2 nightly with a goal of greater than 4 hours nightly, as patient is experiencing good clinical effect from use. - Clean and change PAP supplies routinely, including filters, masks, tubing, and water reservoir. - Use distilled water in PAP water reservoir. Patient was informed and verbally consented to the use of an ambient scribe for clinic note documentation during this visit. [facility] Medical History Weight loss Shortness of breath Pain of left thumb Snoring Family history of colon cancer Nocturnal hypoxemia Daytime sleepiness URI (upper respiratory infection) Type II diabetes mellitus, well controlled Diverticulosis Elevated cholesterol DM type 2 (diabetes mellitus, type 2) Surgical History Hx of colonoscopy [place] teeth extracted H/O vasectomy Family History Mother No problems noted. Father Colon cancer Social History Housing: House Comment: left eye, better Patient Tobacco Use Status: Never used Tobacco e-Cigarette/Vaping Use: Never Used Second Hand Smoke Exposure: No Current occupational status: employed Current occupation: left handed Cognitive needs: No Hearing needs: No Vision needs: No Physical Exam Vital Signs: Last Vital Signs Pulse 97 09/27/24 15:38 BP 120/84 09/27/24 15:38 Pulse Ox 98 09/27/24 15:38 Oxygen Delivery Method Room Air 09/27/24 15:38 Const General: no acute distress Orientation/consciousness: patient oriented x3 Resp Effort & Inspection: normal respiratory effort and able to speak in complete sentences Neuro General: patient oriented x3 Psych Mental Status: mental status grossly normal Speech and movement: Clear speech present Attitude: cooperative Assessment & Plan Assessment & Plan (1) ALANA (obstructive sleep apnea): Comment: Severe degree of sleep apnea. The AHI was 29/hr, supine AHI was 49/hr, and oxygen aurelio was 69%. Code(s): G47.33 - Obstructive sleep apnea (adult) (pediatric) Category: Medical Plan Coding Level of Care Code Est Pt Level 3 (09060) Diagnoses ALANA (obstructive sleep apnea) G47.33
[2024-09-27 15:38] VITALS: BP 120/84; PULSE 97; O2SAT 98
--- OUTSIDE RECORDS SUMMARY | 2024-09-27 18:36 | XMS_ITS | Patient Health Record ---
Author Organization [facility] Address [address] [place] [address] Care Team Providers Care Prop And Effects Designer Name Role Phone Rob Barrett Primary Care Provider Unav Walker Diallo Unavailable [phone] Allergies Allergen (clinical drug ingredient) Drug/Non Drug [...] Duration) Notes Start Date End Date Status [place] 3 Active Mounjaro Active Social History Tobacco [...] Polyneuropathy due to type 2 diabetes mellitus (634955136) Type 2 diabetes mellitus with diabetic polyneuropathy (E11.42) Active confirmed Vital Signs Blood pressure diastolic 78 mm Hg 09/04/2024 Height 5ft 8 in in 09/04/2024 Blood pressure systolic 114 mm Hg 09/04/2024 Weight 174 lbs 09/04/2024 BMI 26.45 kg/m2 09/04/2024 Procedures Procedure Date Ordered Date Performed Result Body Sit e Y0823-VZVOWBWN DYSTROPHIC NAILS ANY # 06/21/2024 N/A T7807-VUSBQLRB DYSTROPHIC NAILS ANY # 09/04/2024 N/A Encounters Encounter Location Date Provider Diagnosis [facility] [address] 06/21/2024 Walker Rai Type 2 diabetes mellitus with diabetic polyneuropathy E11.[address] [address] 09/04/2024 Walker Rai Type 2 diabetes mellitus with diabetic polyneuropathy E11.42 [facility] [address] [facility] [address] [place] [address] 04/02/2024 [facility] [address] [place] [address] 06/15/2024 Walker Rai Assessments Encounter Date Diagnosis (ICD Code) Assessment Notes Treatment Notes Treatment Clinical Notes Section Notes 06/21/2024 Type 2 diabetes mellitus with diabetic polyneuropathy (ICD-10 - E11.42) 09/04/2024 Type 2 diabetes mellitus with diabetic polyneuropathy (ICD-10 - E11.42) Plan Of Treatment Pending Test Test Name Order Date A4359-AZMPRDAC DYSTROPHIC NAILS ANY # J8393-JQCIJSSJ DYSTROPHIC NAILS ANY # Next Appt Details Provider Name:Giselle salmon, 11/12/2024 03:15:00 PM, [address] [place], [address], Insurance Providers Payer Name Payer Address Payer Phone Subscriber Number Group Number Insured Name Patient Relationship to Insured Coverage Start Date Coverage End Date Nikolay [facility] [address] [place] [address] [id number] Mae, Nash Self - patient is the insured Medical (General) History Medical History History ICD Code Diabetic Chicken pox Surgical History Surgery Date(Month/Year) wisdom teeth extraction vasectomy colonoscopy
--- OUTSIDE RECORDS SUMMARY | 2024-09-27 18:36 | XMS_ITS ---
Author Organization [facility] Address [address] [facility] [place] [address] Care Team Providers Care Rubber And Pounder Name Role Phone Rob Barrett Primary Care Provider Unav ailWalker Artis [phone] REASON FOR VISIT SANITARY INSPECTOR PPWK Entered Encounters Encounter Location Date Provider Diagnosis [facility] [address] [place] [address] 06/15/2024 Walker Rai Plan Of Treatment Next Appt Details Provider Name:Giselle salmon, 11/12/2024 03:15:00 PM, [address] [place] [address], [place], [address], Progress Notes * KADEN NashDOB:1970 (53 yo M)Acc No.[id number]:06/15/2024 Patient:?Nash MAE :1970???Age:53 Y???Sex:Male Address:[address] [place], [address] * true * Date:? Generated for Printi ng/Fairmag/eTransmitting on:?09/27/2024 06:36 PM EDT
--- OUTSIDE RECORDS SUMMARY | 2024-09-27 18:36 | XMS_ITS ---
[facility] Organization [facility] Address [address] [place] [address] Care Team Providers Care Canine Service Instructor Trainer Name Role Phone Rob Barrett Primary Care Provider Nicole hopeWalker Artis Unavailable [phone] Allergies Allergen (clinical drug ingredient) Drug/Non Drug [...] Start Date End Date Status Mounjhonyro Active [place] 3 Active Social History Tobacco Use: Social [...] Polyneuropathy due to type 2 diabetes mellitus ([id number]) Type 2 diabetes mellitus with diabetic polyneuropathy (E11.42) Active confirmed Vital Signs Height 5 ft 8 in in 06/21/2024 Weight 176 lbs 06/21/2024 BMI 26.76 kg/m2 06/21/2024 Blood pressure systolic 116 mm Hg 06/21/20 24 Blood pressure diastolic 76 mm Hg 024 Procedures Procedure Date Ordered Date Performed Result Body Sit e B8462-MDTHSTFF DYSTROPHIC NAILS ANY # 06/21/2024 N/A Encounters Encounter Location Date Provider Diagnosis [facility] [place] [address] [place] [address] 06/21/2024 Walker Rai Type 2 diabetes ester itus with diabetic polyneuropathy E11.42 Assessments Encounter Date Diagnosis (ICD Code) Assessment Notes Treatment Notes Treatment Clinical Notes Section Notes 06/21/2024 Type 2 diabetes mellitus with diabetic polyneuropathy (ICD-10 - E11.42) Plan Of Treatment Pending Test Test Name Order Date O3335-DVMBRBUN DYSTROPHIC NAILS ANY # Next Appt Details Follow Up: 2 Months, Reason: Provider Name:Giselle salmon, 11/12/2024 03:15:00 PM, [address] [facility], [place], [address], Procedure Notes * Category Sub-Category Detail Notes [...] Notes * Nash MAEDOB:1970 (53 yo M)Acc No.[id number]:06/21/2024 Progress Note Patient:?KADEN Nash Provider:?Walker Rai D.P.M. :1970???Age:53 Y???Sex:Male Oral e:06/21/2024 Address:[address] [place], [place] [id number] Pcp:PRISCILLA Soliz Subjective: * Chief Complaints: * [...] the past year??No ?Points?0 ?Interpretation?Negative * Medications:?TakingMounjaro [place] 3 Medication List reviewed and reconciled with the patientTaking Mounjaro Taking [place] 3 Medication List reviewed and reconciled with [...] Rai D.P.M. Date:?06/03 Generated for Zaynabi roxanne/Kieran/eTransmitting on:?09/27/2024 06:36 PM EDT History and Physical Notes * HPI [...]
--- OUTSIDE RECORDS SUMMARY | 2024-09-27 18:36 | XMS_ITS ---
[facility] Address [address] [place] [address] Care Team Providers Care Balloon Maker Name Role Phone Rob Barrett Primary Care Provider Walker Perez Unavailable [phone] Allergies Allergen (clinical drug ingredient) Drug/Non Drug Allergy documented on EMR Reaction Allergy Type Onset Date Status Opiate (uncoded) Unknown Allergy Act ap acetaminophen Acetaminophen Unknown Drug Allergy Active celecoxib Celecoxib Unknown Drug Allergy Active acetaminophen Tylenol Unknown Drug Allergy Act ap morphine Morphine Unknown Drug Allergy Active Eggplant Unknown Allergy Active REASON FOR VISIT Night Guard 07/06/24, At Risk Footcare Medications Medication SIG (Take, Route, Frequency, Duration) Notes Start Date End Date Status [place] 3 Active Mounjaro Active Social History Tobacco [...] Ordered Date Performed Result Body Sit e M6078-MDAWUDLI DYSTROPHIC NAILS ANY # 09/04/2024 N/A Encounters Encounter Location Date [facility] [address] [place] [address] 09/04/2024 Walker Rai Type 2 diabetes ester itus with diabetic polyneuropathy E11.42 Assessments Encounter Date Diagnosis (ICD Code) Assessment Notes Treatment Notes Treatment Clinical Notes Section Notes 09/04/2024 Type 2 diabetes mellitus with diabetic polyneuropathy (ICD-10 - E11.42) Plan Of Treatment Pending Test Test Name Order Date P9948-KIBPIQRK DYSTROPHIC NAILS ANY # Next Appt Details Follow Up: 2 Months, Reason: Provider Name:Giselle salmon, 11/12/2024 03:15:00 PM, [address] [facility], [place], [address], Procedure Notes * Category Sub-Category Detail Notes [...] Notes * KADEN NashDOB:1970 (53 yo M)Acc No.[id number]:09/04/2024 Progress Note Patient:?Nash MAE Provider:?Walker Rai D.P.M. :1970???Age:53 Y???Sex:Male Oral e:09/04/2024 Address:[address] [place] [address] [id number] Pcp:PRISCILLA Soliz Subjective: * Chief Complaints: * ???Night Guard 07/06/24At Risk Footcare * ROS:?General/Constitutional:?Nausea?denies.?Vomiting?denies.?Hunger Thirst?denies.?Loss appetite?denies.?Chills?denies.?Fatigue?denies.?Fever?denies.?Night [...] the past year??No ?Points?0 ?Interpretation?Negative * Medications:?TakingMounjaro [place] 3 Medication List reviewed and reconciled with the patientTaking Mounjaro Taking [place] 3 Medication List reviewed and reconciled with [...] Rai D.P.M. Date:?10/2024 Generated for Stella oliveira/Kieran/Briana on:?09/27/2024 06:36 PM EDT History and Physical Notes * Examination [...] d iminished Sensory and motor testing performed:: [facility] normal Pedal pulse taking performed:: 2+ ORIENTED: [...]
== END ==
LOC: HO.HSMS 14:58
PROVIDERS: PCP Nurse Practitioner Family; Visit Provider Nurse Practitioner Family
DX: G47.33 Obstructive sleep apnea (adult) (pediatric) (principal)
CPT/HCPCS: 99213

== ENCOUNTER → 2024-10-05 09:10 | Outpatient (BNVA) | payer BC, SELFPAY | PROVIDERS: PCP Nurse Practitioner Family; Visit Provider Nurse Practitioner Adult Health ==

== ENCOUNTER 2024-10-12 09:00 | Outpatient (AMB) | payer BC, SELFPAY ==
--- NOTE | 2024-10-12 09:07 | MHC.OFFVIS ---
Vital Signs 10/12/24 09:15 Height 5 ft 8 in Weight 175 lb 4.28 oz BMI 26.6 BP 110/72 Blood Pressure Location Rt brachial Position Sitting Pulse 94 Pulse Source Pulse Oximeter Pulse Oximetry (%) 98 Oxygen Delivery Method Room Air Intake Visit Reasons: DM Intake Note: Patient present today to follow up on Type 2 Diabetes Mellitus. Last Diabetic Eye exam: 01/16/2024 Last Podiatry Visit: 06/2024 Random Glucose: 110 mg/dl HgA1C: 5.8% 09/12/2024 Accompanied by: Self / Same As Patient Allergies acetaminophen [From Percocet] Allergy (Severe, Verified 10/12/24 09:17) ANAPHYLAXIS eggplant Allergy (Severe, Verified 10/12/24 09:17) Itching, swelling, difficulty breathing oxycodone [Percocet] Allergy (Severe, Verified 10/12/24 09:17) Anaphylaxis celecoxib [Celebrex] Allergy (Unknown, Verified 10/12/24 09:17) unknown opiates Allergy (Unknown, Verified 10/12/24 09:17) unknown Medication List - Last Reconciled 10/12/24 by Lorena Gay PA-C albuterol sulfate 90 mcg/actuation 1 inh inhalation QID PRN blood-glucose sensor (Dexcom G7 Sensor device) DIRECTED CHANGE EVERY 10 DAYS blood-glucose,hogshead inspector,cont (Dexcom G7 Leadership Development Instructor) As directed epinephrine (EpiPen 2-Wong) 0.3 mg (0.3 mL) IM Q10M PRN 30 days ezetimibe 10 mg PO DAILY 90 days glucagon 3 mg/actuation (Baqsimi) 3 mg intranasal ONCE PRN 1 day lancets (OneTouch Delica Lancets) test blood sugar twice a day omega-3 acid ethyl esters 1 cap PO BID OneTouch Ultra Test (blood sugar diagnostic) Test blood sugar twice a day NS OneTouch Ultra2 Meter (blood-glucose meter) to test blood sugars as directed NS tirzepatide (Mounjaro) 7.5 mg (0.5 mL) subcut QWEEK 90 days HPI HPI DM: Details: Patient is a 54-year-old male who presents today for a follow-up regarding his diabetes. He has a significant past medical history fatty liver, elevated LFTs, dyslipidemia, type 2 diabetes, renal cysts and microscopic hematuria.He has no acute concerns today. Endo: Initially diagnosed with T2DM in 09/15/21. Was initially started on treatment with metformin which has since been discontinued. He is now only on Mounjaro 7.5 mg Q wkly. His A1c was 5.7. . Dexcom download shows using the sensor 96% average glucose to be 141 with G mi of 6.7% and standard deviation of 22 . with 94% range, 6% hyperglycemia. Reports low sugars none. No Family history of T2DM . Saw diabetes education and steel pourer helper here CV: bp todady in office is 110/72. Last cholesterol with a little elevated above goal. He is on zetia. [facility] Medical History (Updated 10/05/24 @ 07:38 by Luz Villavicencio NP) Hypogonadism in male Weight loss Shortness of breath Pain of left thumb Snoring Family history of colon cancer Nocturnal hypoxemia Daytime sleepiness URI (upper respiratory infection) Type II diabetes mellitus, well controlled Diverticulosis Elevated cholesterol DM type 2 (diabetes mellitus, type 2) Surgical History Hx of colonoscopy [place] teeth extracted H/O vasectomy Family History Mother No problems noted. Father Colon cancer Social History Housing: House Comment: left eye, better Patient Tobacco Use Status: Never used Tobacco e-Cigarette/Vaping Use: Never Used Second Hand Smoke Exposure: No Current occupational status: employed Current occupation: left handed Cognitive needs: No Hearing needs: No Vision needs: No Physical Exam Const Orientation/consciousness: patient oriented x3 Neck Neck: Yes no lymphadenopathy Thyroid: Thyroid normal Carotids: no bruits Resp Auscultation: clear to auscultation bilaterally Cardio Rate: regular rate Rhythm: regular rhythm Heart sounds: S1 normal heart sound present and S2 normal heart sound present Peripheral pulses: dorsalis pedis present Neuro General: patient oriented x3, gait normal and no focal motor deficits Extrem Other: Monofilament sensation intact bilaterally. Vibratory sensation intact bilaterally. Skin intact. General: Yes normal to inspection Results Reviewed Results Reviewed: Laboratory Tests 09/12/24 07:12 Sodium 139 Potassium 3.8 Chloride 105 Carbon Dioxide 27 Anion Gap 11 L BUN 12 Creatinine 1.04 Estimated GFR > 60 Hemoglobin A1c % 5.8 Total Bilirubin 0.8 AST 39 H ALT 50 H Alkaline Phosphatase 57 Triglycerides 152 H Cholesterol 193 LDL Cholesterol, Calc 122 H HDL Cholesterol 41 Assessment & Plan Assessment & Plan (1) Type II diabetes mellitus, well controlled: Code(s): E11.9 - Type 2 diabetes mellitus without complications Category: Medical Plan: Continue current regimen currently well-controlled. We will monitor in 3 months. Sooner if needed. (2) Fatty liver: Code(s): K76.0 - Fatty (change of) liver, not elsewhere classified Category: Medical Plan: Reviewed labs and previous imaging from 2021 with patient. He is treating the cholesterol. (3) Dyslipidemia: Code(s): E78.5 - Hyperlipidemia, unspecified Category: Medical Plan: Continue on Zetia. Medications: Refilled tirzepatide (Mounjaro) 7.5 mg (0.5 mL) subcut QWEEK 90 days 6 mL 11RF Coding Level of Care Code Est Pt Level 4 (23060) Complex EM visit Add On G2211 Diagnoses Type II diabetes mellitus, well controlled E11.9 Fatty liver K76.0 Dyslipidemia E78.5
[2024-10-12 09:15] VITALS: BP 110/72; PULSE 94; O2SAT 98; BMI 26.6
--- OUTSIDE RECORDS SUMMARY | 2024-10-12 09:17 | XMS_ITS ---
[facility] Address [address] [place] [address] Care Team Providers Care Textile Designs Sales Representative Name Role Phone Rob Barrett Primary Care Provider Walker Perez Unavailable [phone] Allergies Allergen (clinical drug ingredient) Drug/Non Drug Allergy documented on EMR Reaction Allergy Type Onset Date Status Opiate (uncoded) Unknown Allergy Act ap acetaminophen Acetaminophen Unknown Drug Allergy Active celecoxib Celecoxib Unknown Drug Allergy Active acetaminophen Tylenol Unknown Drug Allergy Act pa morphine Morphine Unknown Drug Allergy Active Eggplant Unknown Allergy Active REASON FOR VISIT Group Fitness Instructor 07/06/24, At Risk Footcare Medications Medication SIG (Take, Route, Frequency, Duration) Notes Start Date End Date Status [place] 3 Active Mounjaro Active Social History Tobacco [...] Ordered Date Performed Result Body Sit e M4174-LANPUSTV DYSTROPHIC NAILS ANY # 09/04/2024 N/A Encounters Encounter Location Date [facility] [address] [place] [address] 09/04/2024 Walker Rai Type 2 diabetes ester itus with diabetic polyneuropathy E11.42 Assessments Encounter Date Diagnosis (ICD Code) Assessment Notes Treatment Notes Treatment Clinical Notes Section Notes 09/04/2024 Type 2 diabetes mellitus with diabetic polyneuropathy (ICD-10 - E11.42) Plan Of Treatment Pending Test Test Name Order Date P3253-JCBDMXND DYSTROPHIC NAILS ANY # Next Appt Details Follow Up: 2 Months, Reason: Provider Name:Giselle salmon, 11/12/2024 03:15:00 PM, [address] [facility], [place], [address], Procedure Notes * Category Sub-Category Detail Notes [...] Notes * KADEN NashDOB:1970 (53 yo M)Acc No.[id number]:09/04/2024 Progress Note Patient:?Nash MAE Provider:?Walker Rai D.P.M. :1970???Age:53 Y???Sex:Male Oral e:09/04/2024 Address:[address] [place] [address] [id number] Pcp:PRISCILLA Soliz Subjective: * Chief Complaints: * ???Group Fitness Instructor 07/06/24At Risk Footcare * ROS:?General/Constitutional:?Nausea?denies.?Vomiting?denies.?Hunger Thirst?denies.?Loss appetite?denies.?Chills?denies.?Fatigue?denies.?Fever?denies.?Night [...] the past year??No ?Points?0 ?Interpretation?Negative * Medications:?TakingMounjaro [place] 3 Medication List reviewed and reconciled with the patientTaking Mounjaro Taking [place] 3 Medication List reviewed and reconciled with [...] Rai D.P.M. Date:?10/2024 Generated for Stella oliveira/Kieran/Briana on:?10/12/2024 09:17 AM EDT History and Physical Notes * Examination Category Sub-Category Detail Notes Category Not es Neurological SENSORY: Neurological exa m demonstrates, reduced light touch sensation, reduced sharp/dull discrimination , reduced vibration sensation, in a stocking fashion, B/L, 5.07 monofilament test performed at plantar aspects of 5 varied sites per foot shows sensation, reduced, B/L Orthopedic FOOTWEAR EVALUATION: Shoe gear w ere inspected and noted to be worn, but [...] d iminished Sensory and motor testing performed:: [facility] normal Pedal pulse taking performed:: 2+ [...]
--- OUTSIDE RECORDS SUMMARY | 2024-10-12 09:17 | XMS_ITS ---
Author Organization [facility] Address [address] [facility] [place] [address] Care Team Providers Care Cartoonist Special Effects Name Role Phone Rob Barrett Primary Care Provider Unav ailWalker Artis [phone] REASON FOR VISIT ENGINEERING LEADER PPWK Entered Encounters Encounter Location Date Provider Diagnosis [facility] [address] [place] [address] 06/15/2024 Walker Rai Plan Of Treatment Next Appt Details Provider Name:Giselle salmon, 11/12/2024 03:15:00 PM, [address] [place] [address], [place], [address], Progress Notes * KADEN NashDOB:1970 (53 yo M)Acc No.[id number]:06/15/2024 Patient:?Nash MAE :1970???Age:53 Y???Sex:Male Address:[address] [place], [address] * true * Date:? Generated for Printi ng/Fairmag/eTransmitting on:?10/12/2024 09:17 AM EDT
--- OUTSIDE RECORDS SUMMARY | 2024-10-12 09:17 | XMS_ITS | Patient Health Record ---
Author Organization [facility] Adam Bootheley Address [address] [place] [address] Care Team Providers Care Used Car Make Ready Worker Name Role Phone Rob Barrett Primary Care Provider Unav Walker Diallo Unavailable [phone] Allergies Allergen (clinical drug ingredient) Drug/Non Drug [...] Duration) Notes Start Date End Date Status [place] 3 Active Mounjaro Active Social History Tobacco [...] Polyneuropathy due to type 2 diabetes mellitus (929408931) Type 2 diabetes mellitus with diabetic polyneuropathy (E11.42) Active confirmed Vital Signs Blood pressure diastolic 78 mm Hg 09/04/2024 Height 5ft 8 in in 09/04/2024 Blood pressure systolic 114 mm Hg 09/04/2024 Weight 174 lbs 09/04/2024 BMI 26.45 kg/m2 09/04/2024 Procedures Procedure Date Ordered Date Performed Result Body Sit e W8499-TDLWBOQP DYSTROPHIC NAILS ANY # 06/21/2024 N/A C4234-YSQEOVEK DYSTROPHIC NAILS ANY # 09/04/2024 N/A Encounters Encounter Location Date Provider Diagnosis [facility] [address] [address] 06/21/2024 Walker Rai Type 2 diabetes mellitus with diabetic polyneuropathy E11.[address] [address] 09/04/2024 Walker Rai Type 2 diabetes mellitus with diabetic polyneuropathy E11.42 [facility] [address] [facility] [address] [place] [address] 04/02/2024 Walker Rai [facility] [address] [place] [address] 06/15/2024 Walker Rai Assessments Encounter Date Diagnosis (ICD Code) Assessment Notes Treatment Notes Treatment Clinical Notes Section Notes 06/21/2024 Type 2 diabetes mellitus with diabetic polyneuropathy (ICD-10 - E11.42) 09/04/2024 Type 2 diabetes mellitus with diabetic polyneuropathy (ICD-10 - E11.42) Plan Of Treatment Pending Test Test Name Order Date A4806-CZETATCL DYSTROPHIC NAILS ANY # X5109-PCVSHKLX DYSTROPHIC NAILS ANY # Next Appt Details Provider Name:Giselle salmon, 11/12/2024 03:15:00 PM, [address] [place], [address], Insurance Providers Payer Name Payer Address Payer Phone Subscriber Number Group Number Insured Name Patient Relationship to Insured Coverage Start Date Coverage End Date Nikolay [facility] [address] [place] [address] [id number] Mea, Nash Self - patient is the insured Medical (General) History Medical History History ICD Code Diabetic Chicken pox Surgical History Surgery Date(Month/Year) wisdom teeth extraction vasectomy colonoscopy
--- OUTSIDE RECORDS SUMMARY | 2024-10-12 09:17 | XMS_ITS | Clinical Summary ---
Author Organization [facility] Address [address] [place] [address] Care Team Providers Care Coat Baster Name Role Phone Unavailable Primary Care Provider [...]
--- OUTSIDE RECORDS SUMMARY | 2024-10-12 09:18 | XMS_ITS ---
Author Organization [facility] Address [address] [place] [address] Care Team Providers Care Youth Court Judge Name Role Phone Rob Barrett Primary Care Provider Nicole hopeWalker Artis Unavailable [phone] Allergies Allergen (clinical drug ingredient) Drug/Non Drug [...] Start Date End Date Status Mounjhonyro Active [place] 3 Active Social History Tobacco Use: Social [...] Polyneuropathy due to type 2 diabetes mellitus (339918530) Type 2 diabetes mellitus with diabetic polyneuropathy (E11.42) Active confirmed Vital Signs Height 5 ft 8 in in 06/21/2024 Weight 176 lbs 06/21/2024 BMI 26.76 kg/m2 06/21/2024 Blood pressure systolic 116 mm Hg 06/21/20 24 Blood pressure diastolic 76 mm Hg 024 Procedures Procedure Date Ordered Date Performed Result Body Sit e D3242-ULFTSSAQ DYSTROPHIC NAILS ANY # 06/21/2024 N/A Encounters Encounter Location Date Provider Diagnosis [facility] [place] [address] [place] [address] 06/21/2024 Walker Rai Type 2 diabetes ester itus with diabetic polyneuropathy E11.42 Assessments Encounter Date Diagnosis (ICD Code) Assessment Notes Treatment Notes Treatment Clinical Notes Section Notes 06/21/2024 Type 2 diabetes mellitus with diabetic polyneuropathy (ICD-10 - E11.42) Plan Of Treatment Pending Test Test Name Order Date C4568-IVNZNOUY DYSTROPHIC NAILS ANY # Next Appt Details Follow Up: 2 Months, Reason: Provider Name:Giselle salmon, 11/12/2024 03:15:00 PM, [address] [facility], [place], [address], Procedure Notes * Category Sub-Category Detail Notes [...] Notes * Nash MAEDOB:1970 (53 yo M)Acc No.[id number]:06/21/2024 Progress Note Patient:?KADEN Nash Provider:?Walker Rai D.P.M. :1970???Age:53 Y???Sex:Male Oral e:06/21/2024 Address:[address] [place], [place] [id number] Pcp:PRISCILLA Soliz Subjective: * Chief Complaints: * [...] the past year??No ?Points?0 ?Interpretation?Negative * Medications:?TakingMounjaro [place] 3 Medication List reviewed and reconciled with the patientTaking Mounjaro Taking [place] 3 Medication List reviewed and reconciled with [...] Rai D.P.M. Date:?06/03 Generated for Zaynabi roxanne/Kieran/eTransmitting on:?10/12/2024 09:17 AM EDT History and Physical [...]
[2024-10-12 09:29] LABS: Glucose, Whole Blood 110 mg/dL (60-115)
== END 2024-10-12 09:51 | disposition home or self-care (01) ==
LOC: HO.ENCR 09:01
PROVIDERS: PCP Nurse Practitioner Family; Visit Provider Physician Assistant
DX: E11.9 Type 2 diabetes mellitus without complications (principal); K76.0 Fatty (change of) liver, not elsewhere classified; E78.5 Hyperlipidemia, unspecified

== ENCOUNTER → 2024-10-12 09:00 | Outpatient (BNVA) | payer BC, SELFPAY | PROVIDERS: PCP Nurse Practitioner Family; Visit Provider Physician Assistant | DX: E11.9 Type 2 diabetes mellitus without complications (principal); K76.0 Fatty (change of) liver, not elsewhere classified; E78.5 Hyperlipidemia, unspecified; Z79.899 Other long term (current) drug therapy | CPT/HCPCS: 82947 ==

== ENCOUNTER 2024-10-19 07:56 | Outpatient (REF) | payer BC, SELFPAY ==
--- OUTSIDE RECORDS SUMMARY | 2024-10-19 07:59 | XMS_ITS | Clinical Summary ---
Author Organization [facility] Address [address] [place] [address] Care Team Providers Care Synthetic Resin Operator Name Role Phone Unavailable Primary Care Provider [...]
--- NOTE | 2024-10-19 08:00 | PFT_ITS ---
Indication: Wheezing Spirometry [FEV1 to FVC 84%; FEV1 3.57 L; FVC 4.25 L. No significant response to bronchodilators noted.] Lung Volumes [Total lung capacity 83% predicted; residual volume 73% predicted] Diffusion Capacity [DLCO 102% predicted] Comparisons [none] Interpretation [No obstructive nor restrictive ventilatory defects identified. No significant response to bronchodilators noted. Lung volumes are low normal and diffusing capacity is within normal limits. If asthma is new differential methacholine challenge may be helpful assessing for hyperreactive airways. Clinical correlation warranted.] MTDD
--- OUTSIDE RECORDS SUMMARY | 2024-10-19 08:00 | XMS_ITS | Patient Health Record ---
[facility] [place] Address [address] [place] [address] Care Team Providers Care Environmental Director Name Role Phone Rob Barrett Primary Care Provider Unav Walker Diallo Unavailable [phone] Allergies Allergen (clinical drug ingredient) Drug/Non Drug Allergy documented on EMR Reaction Allergy Type Onset Date Status Opiate (uncoded) Unknown Allergy Act ap acetaminophen Acetaminophen Unknown Drug Allergy Active celecoxib Celecoxib Unknown Drug Allergy Active acetaminophen Tylenol Unknown Drug Allergy Act ap morphine Morphine Unknown Drug Allergy Active Eggplant Unknown Allergy Active Results Component Value Reference Range Notes HEMOGLOBIN A1C (GLYCOHEMOGLO BIN) Reviewed date:09/04/2024 03:14:13 PM Interpretation: Performing Lab: Notes/Report: HEMOGLOBIN A1C % (HH) 5.7 HEMOGLOBIN A1C (GLYCOHEMOGLO BIN) Reviewed date:06/21/2024 03:03:57 PM Interpretation: Performing Lab: Notes/Report: TOTAL HEMOGLOBIN (HGBA1C) 6.1 Reason For Referral No Information Medications Medication SIG (Take, Route, Frequency, Duration) Notes Start Date End Date Status [place] 3 Active Mounjaro Active Social History Tobacco [...] Polyneuropathy due to type 2 diabetes mellitus ([id number]) Type 2 diabetes mellitus with diabetic polyneuropathy (E11.42) Active confirmed Vital Signs Blood pressure diastolic 78 mm Hg 09/04/2024 Height 5ft 8 in in 09/04/2024 Blood pressure systolic 114 mm Hg 09/04/2024 Weight 174 lbs 09/04/2024 BMI 26.45 kg/m2 09/04/2024 Procedures Procedure Date Ordered Date Performed Result Body Sit e R9904-YSITYINS DYSTROPHIC NAILS ANY # 06/21/2024 N/A B1708-CBBKFSYU DYSTROPHIC NAILS ANY # 09/04/2024 N/A Encounters Encounter Location Date [facility] [address] 06/21/2024 Walker Rai Type 2 diabetes mellitus with diabetic polyneuropathy E11.[address] [address] 09/04/2024 Walker Rai Type 2 diabetes mellitus with diabetic polyneuropathy E11.42 [facility] [address] [facility] [address] [place] [address] 04/02/[address] [facility] [address] [place] [address] 06/15/2024 Walker Rai Assessments Encounter Date Diagnosis (ICD Code) Assessment Notes Treatment Notes Treatment Clinical Notes Section Notes 06/21/2024 Type 2 diabetes mellitus with diabetic polyneuropathy (ICD-10 - E11.42) 09/04/2024 Type 2 diabetes mellitus with diabetic polyneuropathy (ICD-10 - E11.42) Plan Of Treatment Pending Test Test Name Order Date L8002-OLBPEHHK DYSTROPHIC NAILS ANY # M2427-MUPFWMUO DYSTROPHIC NAILS ANY # Next Appt Details Provider Name:Giselle salmon, 11/12/2024 03:15:00 PM, [address] [place], [address], Insurance Providers Payer Name Payer Address Payer Phone Subscriber Number Group Number Insured Name Patient Relationship to Insured Coverage Start Date Coverage End Date Nikolay [facility] [address] [place] [address] [id number] Mae, Nash Self - patient is the insured Medical (General) History Medical History History ICD Code Diabetic Chicken pox Surgical History Surgery Date(Month/Year) wisdom teeth extraction vasectomy colonoscopy
--- OUTSIDE RECORDS SUMMARY | 2024-10-19 08:00 | XMS_ITS ---
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 Generated for Printi ng/Fairmag/eTransmitting on:?10/19/2024 07:59 AM EDT
--- OUTSIDE RECORDS SUMMARY | 2024-10-19 08:00 | XMS_ITS ---
[facility] Address [address] [place] [address] Care Team Providers Care Instrument Room Technician Name Role Phone Rob Barrett Primary Care Provider Walker Perez Unavailable [phone] Allergies Allergen (clinical drug ingredient) Drug/Non Drug Allergy documented on EMR Reaction Allergy Type Onset Date Status Opiate (uncoded) Unknown Allergy Act ap acetaminophen Acetaminophen Unknown Drug Allergy Active celecoxib Celecoxib Unknown Drug Allergy Active acetaminophen Tylenol Unknown Drug Allergy Act ap morphine Morphine Unknown Drug Allergy Active Eggplant Unknown Allergy Active REASON FOR VISIT Medical Scientific Liaison 07/06/24, At Risk Footcare Medications Medication SIG (Take, Route, Frequency, Duration) Notes Start Date End Date Status [place] 3 Active Mounjaro Active Social History Tobacco [...] Ordered Date Performed Result Body Sit e M1206-ADVUVDEL DYSTROPHIC NAILS ANY # 09/04/2024 N/A Encounters Encounter Location Date [facility] [address] [place] [address] 09/04/2024 Walker Rai Type 2 diabetes ester itus with diabetic polyneuropathy E11.42 Assessments Encounter Date Diagnosis (ICD Code) Assessment Notes Treatment Notes Treatment Clinical Notes Section Notes 09/04/2024 Type 2 diabetes mellitus with diabetic polyneuropathy (ICD-10 - E11.42) Plan Of Treatment Pending Test Test Name Order Date V6074-CIIKPTBG DYSTROPHIC NAILS ANY # Next Appt Details Follow Up: 2 Months, Reason: Provider Name:Giselle salmon, 11/12/2024 03:15:00 PM, [address] [facility], [place], [address], Procedure Notes * Category Sub-Category Detail Notes [...] Notes * KADEN NashDOB:1970 (53 yo M)Acc No.[id number]:09/04/2024 Progress Note Patient:?Nash MAE Provider:?Walker Rai D.P.M. :1970???Age:53 Y???Sex:Male Oral e:09/04/2024 Address:[address] [place] [address] [facility] Pcp:PRISCILLA Soliz Subjective: * Chief Complaints: * ???Medical Scientific Liaison 07/06/24At Risk Footcare * ROS:?General/Constitutional:?Nausea?denies.?Vomiting?denies.?Hunger Thirst?denies.?Loss appetite?denies.?Chills?denies.?Fatigue?denies.?Fever?denies.?Night [...] the past year??No ?Points?0 ?Interpretation?Negative * Medications:?TakingMounjaro [place] 3 Medication List reviewed and reconciled with the patientTaking Mounjaro Taking [place] 3 Medication List reviewed and reconciled with [...] Rai D.P.M. Date:?10/2024 Generated for Stella oliveira/Kieran/Briana on:?10/19/2024 07:59 AM EDT History and Physical Notes * [...] d iminished Sensory and motor testing performed:: [place] [facility] normal Pedal pulse taking performed:: [...]
--- OUTSIDE RECORDS SUMMARY | 2024-10-19 08:00 | XMS_ITS ---
[facility] Address [address] [place] [address] Care Team Providers Care Nurse Sitter Name Role Phone Rob Barrett Primary Care Provider Nicole hopeWalker Artis Unavailable [phone] Allergies Allergen (clinical drug ingredient) Drug/Non Drug [...] Start Date End Date Status Mounjhonyro Active [place] 3 Active Social History Tobacco Use: Social [...] Polyneuropathy due to type 2 diabetes mellitus (102741709) Type 2 diabetes mellitus with diabetic polyneuropathy (E11.42) Active confirmed Vital Signs Height 5 ft 8 in in 06/21/2024 Weight 176 lbs 06/21/2024 BMI 26.76 kg/m2 06/21/2024 Blood pressure systolic 116 mm Hg 06/21/20 24 Blood pressure diastolic 76 mm Hg 024 Procedures Procedure Date Ordered Date Performed Result Body Sit e B0808-SIZJTPAT DYSTROPHIC NAILS ANY # 06/21/2024 N/A Encounters Encounter Location Date Provider Diagnosis [facility] [place] [address] [place] [address] 06/21/2024 Walker Rai Type 2 diabetes ester itus with diabetic polyneuropathy E11.42 Assessments Encounter Date Diagnosis (ICD Code) Assessment Notes Treatment Notes Treatment Clinical Notes Section Notes 06/21/2024 Type 2 diabetes mellitus with diabetic polyneuropathy (ICD-10 - E11.42) Plan Of Treatment Pending Test Test Name Order Date R4399-DZHEVOXB DYSTROPHIC NAILS ANY # Next Appt Details Follow Up: 2 Months, Reason: Provider Name:Giselle salmon, 11/12/2024 03:15:00 PM, [address] [facility], [place], [address], Procedure Notes * Category Sub-Category Detail Notes [...] Notes * Nash MAEDOB:1970 (53 yo M)Acc No.[id number]:06/21/2024 Progress Note Patient:?KADEN Nash Provider:?Walker Rai D.P.M. :1970???Age:53 Y???Sex:Male Oral e:06/21/2024 Address:[address] [place], [place] [address] Pcp:PRISCILLA Soliz Subjective: * Chief Complaints: * [...] the past year??No ?Points?0 ?Interpretation?Negative * Medications:?TakingMounjaro [place] 3 Medication List reviewed and reconciled with the patientTaking Mounjaro Taking [place] 3 Medication List reviewed and reconciled with [...] Rai D.P.M. Date:?06/03 Generated for Zaynabi roxanne/Kieran/eTransmitting on:?10/19/2024 08:00 AM EDT History and Physical Notes * [...]
[2024-10-19 08:39] VITALS: PULSE 91; O2SAT 99
== END 2024-10-19 07:57 | disposition home or self-care (01) ==
LOC: HO.RESP 07:56
PROVIDERS: PCP Nurse Practitioner Family; Visit Provider Nurse Practitioner Family
DX: R06.2 Wheezing (principal)
CPT/HCPCS: 94010; 94640; 94727; 94729

== ENCOUNTER → 2024-10-19 08:00 | Outpatient (BNV) | payer BC, SELFPAY | PROVIDERS: PCP Nurse Practitioner Family; Visit Provider Hospitalist | DX: R06.2 Wheezing (principal) | CPT/HCPCS: 94060; 94727; 94729 ==

== ENCOUNTER 2025-01-18 08:41 | Outpatient (AMB) | payer BC, SELFPAY ==
--- OUTSIDE RECORDS SUMMARY | 2024-11-12 11:15 | XMS_ITS ---
Author Organization [facility] Address [address] [place] [address] Care Team Providers Care Dry Room Attendant Name Role Phone Rob Barrett Primary Care Provider Unav ailable Eden Rivas Unavailable [phone] Giselle Carrero Unavailable [phone] Encounters Encounter Location Date Provider Diagnosis [address] [address] 11/12/2024 Giselle Carrero Plan Of Treatment Next Appt Details Provider Name:Eden yi, 02/25/2025 08:30:00 AM, [address] [place], [address], Progress Notes * Nash MAEDOB:1970 (54 yo M)Acc No.[id number]:11/12/2024 Progress Note Patient: Nash BECERRA Provider: Uriel Carrero DPM :1970 A ge:54 Y S ex:Male Date:11/12/2024 Address:[address] [facility] [place] Pcp:PRISCILLA Soliz Subjective: * Chief Complaints: * * Medical History: Objective: * Vitals: Assessment: Plan: * Treatment: * Images: * The named appointment provid er may or may not be the originator of this progress note, and it is not deemed complete until electronically signed by the appointment provider. Sign off status: Pending * Provider: Uriel Carrero DPM Date: 0 11/12/2024 Generated for Stella oliveira/Kieran/Briana on: 0 01/18/2025 08:46 AM EDT
--- OUTSIDE RECORDS SUMMARY | 2025-01-18 08:46 | XMS_ITS ---
Author Name [facility] Organization Unknown Care Team Organization Name Specialty Phone Email Start Date End Da alvaro [facility] ([facility]) 05/18/2024 01/02/2025
--- OUTSIDE RECORDS SUMMARY | 2025-01-18 08:46 | XMS_ITS | Clinical Summary ---
Author Organization [facility] Address [address] [place] [address] Care Team Providers Care Cooperative Education Coordinator Name Role Phone Unavailable Primary Care Provider [...] 5 season) 2024 08/25/2020 Influenza Vaccine (#1) 2025 Pneumococcal Vaccine Aged Out No long er eligible based on patient's age to complete this topic RSV Ped < 20 months Aged Out No longe r eligible based on patient's age to complete this topic
--- OUTSIDE RECORDS SUMMARY | 2025-01-18 08:46 | XMS_ITS | Clinical Summary ---
Author Organization [facility] Address [address] [facility] [address] [place] [phone] Phone Care Team Providers Care Software Consultant Name Role Phone Unknown, Unknown Primary Care Provider Christie mcmanus Medications No known medications Active Problems No known active problems Social History Tobacco Use Types Packs/Day Years Used Date Smoking Tobacco: Never Assessed Education Answer Date Recorded Are you interested in more education? Not on la e 10/29/2022 Are you concerned about learning? Not on file 10/29/2022 No 10/29/2022 No 10/29/2022 Digital Access Answer Date Recorded No 11/27/2022 No 11/27/2022 No 11/27/2022 Reliable internet access at home? Not on file 11/27/2022 Device with a working camera? Not on file Sex and Gender Information Value Date Recorded Sex Assigned at Not on file Legal Sex Male 7:09 PM EST Gender Identity Not on file Sexual Orientation Not on file Last Filed Vital Signs Vital Sign Reading Time Taken Comments Blood Pressure - - Pulse - - Temperature 36.8 C (98.2 F) 05/26/2020 7:46 PM EST Respiratory Rate - - Oxygen Saturation - - Inhaled Oxygen Concentration - - Weight - - Height - - Body Mass Index - - Plan of Treatment Health Maintenance Due Date Last Done Comments Adult Td,Tdap Booster 1970 LIPID PANEL 1970 DEPRESSION SCREENING 1983 SMOKING Hx and SMOKELESS TOB ACCO SCREENING 09/28/1984 HEPATITIS C SCREENING 09/28/1989 HIV ONE-TIME SCREENING (18-6 5 YEARS) 09/28/1989 COLOGUARD 09/28/2016 COLONOSCOPY 09/28/2016 COLORECTAL CANCER SCREENING 09/28/2016 FIT TEST 09/28/2016 FOBT 09/28/2016 SIGMOIDOSCOPY 09/28/2016 VIRTUAL COLONOSCOPY 09/28/2016 ZOSTER VACCINES (1 of 2) 09/28/2021 PNEUMOCOCCAL VACCINES (50+ y ears) (2 of 2 - PPSV23) 04/08/2022 04/08/2021 COVID-19 VACCINE (2 - 2023-2 5 season) 2024 04/30/2021 HEPATITIS A VACCINES Aged Out No long er eligible based on patient's age to complete this topic HIB VACCINES Aged Out No longer eligi ble based on patient's age to complete this topic MENINGOCOCCAL VACCINES (ACWY) Aged Out No longer eligible based on patient's age to complete this topic MENINGOCOCCAL VACCINES (B) Aged Out N o longer eligible based on patient's age to complete this topic Medical Devices Not on file Care Teams Software Consultant Relationship Specialty Start Date End Date Unknown, Unknown, PCP - General 05/26/20 Additional Source Comments The information contained in this document represents components of the legal health record. It is not the complete legal health record.[facility]
[2025-01-18 08:58] VITALS: BP 130/88; PULSE 93; O2SAT 98; BMI 26.9
--- NOTE | 2025-01-18 08:58 | MHC.OFFVIS ---
Vital Signs 01/18/25 08:58 Height 5 ft 8 in Weight 177 lb 0.499 oz BMI 26.9 BP 130/88 Blood Pressure Location Lt brachial Position Sitting Pulse 93 Pulse Source Pulse Oximeter Pulse Oximetry (%) 98 Oxygen Delivery Method Room Air Intake Visit Reasons: T2DM Intake Note: Patient present today for Type 2 Diabetes Mellitus Last Diabetic eye exam: 01/2024 and has upcoming appt 01/21/25 Last Podiatry Visit: 09/2024 Random Glucose: 114 mg/dl HgA1C: 5.8% Patient Carrier Required: No Accompanied by: Self / Same As Patient Allergies acetaminophen (From Percocet) Allergy (Severe, Verified 01/18/25 09:02) ANAPHYLAXIS eggplant Allergy (Severe, Verified 01/18/25 09:02) Itching, swelling, difficulty breathing oxycodone (Percocet) Allergy (Severe, Verified 01/18/25 09:02) Anaphylaxis celecoxib (Celebrex) Allergy (Unknown, Verified 01/18/25 09:02) unknown opiates Allergy (Unknown, Verified 01/18/25 09:02) unknown Medication List - Last Reconciled 01/18/25 by Lorena Gay PA-C albuterol sulfate 90 mcg/actuation 1 inh inhalation QID PRN blood-glucose sensor (Dexcom G7 Sensor device) DIRECTED CHANGE EVERY 10 DAYS blood-glucose,want ad receiver,cont (Dexcom G7 Mirror Specialist) As directed epinephrine (EpiPen 2-Wong) 0.3 mg (0.3 mL) IM Q10M PRN 30 days ezetimibe 10 mg PO DAILY glucagon 3 mg/actuation (Baqsimi) 3 mg intranasal ONCE PRN 1 day lancets (OneTouch Delica Lancets) test blood sugar twice a day omega-3 acid ethyl esters 1 cap PO BID OneTouch Ultra Test (blood sugar diagnostic) Test blood sugar twice a day NS OneTouch Ultra2 Meter (blood-glucose meter) to test blood sugars as directed NS tirzepatide (Mounjaro) 7.5 mg (0.5 mL) subcut QWEEK 90 days HPI HPI T2DM: Details: Patient is a 54-year-old male who presents today for a follow-up regarding his diabetes. He has a significant past medical history fatty liver, elevated LFTs, dyslipidemia, type 2 diabetes, renal cysts and microscopic hematuria.He has no acute concerns today. Endo: Initially diagnosed with T2DM in 09/15/21. Was initially started on treatment with metformin which has since been discontinued. He is now only on Mounjaro 7.5 mg Q wkly. His A1c is 5.8. . Dexcom download shows using the sensor 96% average glucose to be 141 with Gmi of 6.7% and standard deviation of 22. 94% range, 6% hyperglycemia. Reports low sugars none. No Family history of T2DM . Saw diabetes education and hot patcher here CV: bp todady in office is 130/88. Last cholesterol with a little elevated above goal. He is on zetia. Not interested in statins. [facility] Medical History Hypogonadism in male Weight loss Shortness of breath Pain of left thumb Snoring Family history of colon cancer Nocturnal hypoxemia Daytime sleepiness URI (upper respiratory infection) Type II diabetes mellitus, well controlled Diverticulosis Elevated cholesterol DM type 2 (diabetes mellitus, type 2) Surgical History Hx of colonoscopy [place] teeth extracted H/O vasectomy Family History Mother No problems noted. Father Colon cancer Social History Housing: House Comment: left eye, better Patient Tobacco Use Status: Never used Tobacco e-Cigarette/Vaping Use: Never Used Second Hand Smoke Exposure: No Current occupational status: employed Current occupation: left handed Cognitive needs: No Hearing needs: No Vision needs: No Physical Exam Vital Signs: Last Vital Signs Pulse 93 01/18/25 08:58 BP 130/88 01/18/25 08:58 Pulse Ox 98 01/18/25 08:58 Oxygen Delivery Method Room Air 01/18/25 08:58 BMI result Body Mass Index 26.9 Const Orientation/consciousness: patient oriented x3 Neck Neck: Yes no lymphadenopathy Thyroid: Thyroid normal Carotids: no bruits Resp Auscultation: clear to auscultation bilaterally Cardio Rate: regular rate Rhythm: regular rhythm Heart sounds: S1 normal heart sound present and S2 normal heart sound present Peripheral pulses: dorsalis pedis present Neuro General: patient oriented x3, gait normal and no focal motor deficits Extrem Other: Monofilament sensation intact bilaterally. Vibratory sensation intact bilaterally. Skin intact. General: Yes normal to inspection Results AMB Hemoglobin A1c AMB Hemoglobin A1c 5.8 % Last Edit by JIMY Woodard on 01/18/25 09:14 Results Reviewed Results Reviewed: Laboratory Last Values Glucose (Clinic) 114 mg/dL (60-115) 01/18/25 09:04 Laboratory Tests 09/12/24 09/12/24 07:08 07:12 Sodium 139 Potassium 3.8 Chloride 105 Carbon Dioxide 27 Anion Gap 11 L BUN 12 Creatinine 1.04 Estimated GFR > 60 Fasting Glucose 112 H Hemoglobin A1c % 5.8 Triglycerides 152 H Cholesterol 193 LDL Cholesterol, Calc 122 H HDL Cholesterol 41 Urine Creatinine 77.90 Urine Microalbumin < 5.0 Assessment & Plan Assessment & Plan (1) Type II diabetes mellitus, well controlled: Code(s): E11.9 - Type 2 diabetes mellitus without complications Category: Medical Plan: continue current plan f/u 3 months or sooner prn (2) Dyslipidemia: Code(s): E78.5 - Hyperlipidemia, unspecified Category: Medical Plan: continue with diet and zetia Orders: Orders AMB Hemoglobin A1c Today E11.9 - Type 2 diabetes mellitus without complications, Z13.9 - Encounter for screening, unspecified Coding Level of Care Code Est Pt Level 4 (48853) Complex EM visit Add On G2211 Diagnoses Type II diabetes mellitus, well controlled E11.9 Dyslipidemia E78.5
[2025-01-18 09:08] LABS: Glucose, Whole Blood 114 mg/dL (60-115)
== END 2025-01-18 09:27 | disposition home or self-care (01) ==
LOC: HO.ENCR 08:42
PROVIDERS: PCP Nurse Practitioner Family; Visit Provider Physician Assistant
DX: Z13.9 Encounter for screening, unspecified (principal); E11.9 Type 2 diabetes mellitus without complications; E78.5 Hyperlipidemia, unspecified

== ENCOUNTER → 2025-01-18 08:41 | Outpatient (BNVA) | payer BC, SELFPAY | PROVIDERS: PCP Nurse Practitioner Family; Visit Provider Physician Assistant | DX: E11.9 Type 2 diabetes mellitus without complications (principal); E78.5 Hyperlipidemia, unspecified; Z79.85 Long-term (current) use of injectable non-insulin antidiabetic drugs | CPT/HCPCS: 82947; 83036 ==

== ENCOUNTER 2025-04-02 13:37 | Outpatient (AMB) | payer BC, SELFPAY ==
--- OUTSIDE RECORDS SUMMARY | 2024-11-12 11:15 | XMS_ITS ---
Author Organization [facility] Address [address] [place] [address] Care Team Providers Care Passementerie Worker Name Role Phone Rob Barrett Primary Care Provider Unav ailable Eden Rivas Unavailable [phone] Giselle Carrero Unavailable [phone] Encounters Encounter Location Date Provider Diagnosis [address] [address] 11/12/2024 Giselle Carrero Plan Of Treatment Next Appt Details Provider Name:Eden yi, 05/23/2025 08:30:00 AM, [address] [place], [address], Progress Notes * Nash MAEDOB:1970 (54 yo M)Acc No.[id number]:11/12/2024 Progress Note Patient: Nash BECERRA Provider: Uriel Carrero DPM :1970 A ge:54 Y S ex:Male Date:11/12/2024 Address:[address] [facility] [place] Pcp:PRISCILLA Soliz Subjective: * Chief Complaints: * * Medical History: Objective: * Vitals: Assessment: Plan: * Treatment: * Images: * The named appointment provid er may or may not be the originator of this progress note, and it is not deemed complete until electronically signed by the appointment provider. Sign off status: Pending * Provider: Uriel Carrero, JORDON Date: 0 11/12/2024 Generated for Stella oliveira/Kieran/Briana on: 0 04/02/2025 02:54 PM EDT
--- OUTSIDE RECORDS SUMMARY | 2025-01-14 11:30 | XMS_ITS ---
Author Organization [facility] Address [address] [place] [address] Care Team Providers Care Paper Sealer Name Role Phone Rob Barrett Primary Care Provider Unav ailable Eden Rivas Unavailable [phone] Giselle Carrero Unavailable [phone] Encounters Encounter Location Date Provider Diagnosis [address] [address] 01/14/2025 Giselle Carrero Plan Of Treatment Next Appt Details Provider Name:Eden yi, 05/23/2025 08:30:00 AM, [address] [place], [address], Progress Notes * Nash MAEDOB:1970 (54 yo M)Acc No.[id number]:01/14/2025 Progress Note Patient: Nash BECERRA Provider: Uriel Carrero DPM :1970 A ge:54 Y S ex:Male Date:01/14/2025 Address:[address] [facility] [place] Pcp:PRISCILLA Soliz Subjective: * Chief Complaints: * * Medical History: Objective: * Vitals: Assessment: Plan: * Treatment: * Images: * The named appointment provid er may or may not be the originator of this progress note, and it is not deemed complete until electronically signed by the appointment provider. Sign off status: Pending * Provider: Uriel Carrero, JORDON Date: 0 01/14/2025 Generated for Stella oliveira/Kieran/Briana on: 0 04/02/2025 02:54 PM EDT
[2025-04-02 14:11] VITALS: BP 150/98; PULSE 90; TEMP 36.9; O2SAT 97; BMI 27.5
--- NOTE | 2025-04-02 14:11 | A.OFFPC_ITS ---
Vital Signs 04/02/25 14:11 04/02/25 14:43 Height 5 ft 8 in Weight 181 lb BMI 27.5 BP 150/98 H 148/100 H Blood Pressure Location Lt brachial Lt brachial Position Sitting Sitting Pulse 90 Pulse Source Pulse Oximeter Temp 98.5 F Temp Source Oral Pulse Oximetry (%) 97 Oxygen Delivery Method Room Air Intake Visit Reasons: PE Caul Fat Puller Required: No Accompanied by: Self / Same As Patient Allergies acetaminophen (From Percocet) Allergy (Severe, Verified 04/02/25 14:11) ANAPHYLAXIS eggplant Allergy (Severe, Verified 04/02/25 14:11) Itching, swelling, difficulty breathing oxycodone (Percocet) Allergy (Severe, Verified 04/02/25 14:11) Anaphylaxis celecoxib (Celebrex) Allergy (Unknown, Verified 04/02/25 14:11) unknown opiates Allergy (Unknown, Verified 04/02/25 14:11) unknown Medication List - Last Reconciled 04/02/25 by RAYRAY Vogel- albuterol sulfate 90 mcg/actuation 1 inh inhalation QID PRN blood-glucose sensor (Dexcom G7 Sensor device) DIRECTED CHANGE EVERY 10 DAYS blood-glucose,field mechanical meter tester,cont (Dexcom G7 Women'S Studies Professor) As directed epinephrine (EpiPen 2-Wong) 0.3 mg (0.3 mL) IM Q10M PRN 30 days ezetimibe 10 mg PO DAILY glucagon 3 mg/actuation (Baqsimi) 3 mg intranasal ONCE PRN 1 day lancets (OneTouch Delica Lancets) test blood sugar twice a day omega-3 acid ethyl esters 1 cap PO BID OneTouch Ultra Test (blood sugar diagnostic) Test blood sugar twice a day NS OneTouch Ultra2 Meter (blood-glucose meter) to test blood sugars as directed NS sildenafil 100 mg PO DAILY PRN 30 days tirzepatide (Mounjaro) 7.5 mg (0.5 mL) subcut QWEEK 90 days Tobacco use date assessed: 04/02/25 Dental Screening Dental Screen Date: 04/02/25 Did you have a dental visit in the last 12 months?: Yes Did you have a dental problem in the last 6 months where you did not have access to dental care?: No Was dental information given to patient?: Patient has dentist HPI PE HPI Details Chief Complaint The patient presents for a physical examination and chronic condition management. History of Present Illness The patient is a 54-year-old male presenting with a physical examination and management of chronic conditions. The patient has a history of diabetes mellitus, which is managed by an it desktop support technician and is reported to be fairly well controlled. Routine tests including microalbumin and A1c are planned to monitor his condition. The patient has a small, slightly raised, crusty, darker lesion on his right lateral knee. He desires removal of this lesion and will be referred to dermatology for further evaluation and management. The patient has a history of kidney cysts, and an ultrasound is planned for follow-up evaluation. During the visit, the patient's blood pressure was noted to be elevated, potentially influenced by a recent bee sting to his left hand (just stung by a wasp before entering the building). The sting resulted in faint erythema on the palmar aspect of the base of his thumb. Denies any s/s of allergic reaction Social History Health Maintenance - Microalbumin and A1c testing for diabe dmitriy management - colon screen is up to date Review of Systems - Cardiovascular: Denies chest pain, dys pnea - Gastrointestinal: Denies abdominal bambi n, blood in stool, constipation, diarrhea - Psychiatric: Denies suicidal ideation, homicidal ideation Physical Exam General: Cooperative, healthy appearing, comfortable, no acute distress and well developed Orientation: Patient oriented x3 Limitations: No limitations Head: Normal to inspection Ears: Hearing grossly normal bilaterally Nose: Normal external nose present Face and sinus: Normal facial exam Eyes: Appearance normal, both eyes and all related structures Neck: Normal visual inspection and Yes full ROM Respiratory: Normal respiratory effort and able to speak in complete sentences. Clear to auscultation bilaterally Cardiovascular: Regular rate and rhythm. Normal S1 and S2 GI: Normal to inspection. Soft to palpation and nontender Skin: Very small, slightly raised, more crusty, darker lesion to the right lateral knee. Faint erythema to the prince aspect, the base of the left thumb (bee sting). Neuro: Patient oriented x3 Extremities: Feet intact bilaterally, positive sensation with use of monofilament. Normal to inspection Plan 1. Diabetes Mellitus Routine monitoring with microalbumin and A1c testing is planned to assess diabetes control. follow up with endo. 2. Skin Lesion On Right Lateral Knee Referral to dermatology for evaluation and removal of the lesion is planned. 3. Kidney Cysts An ultrasound is scheduled to follow up on the kidney cysts. 4. Elevated Blood Pressure Blood pressure monitoring is advised, considering the recent bee sting may have influenced the reading. Will have him take his BP at home, send me values via portal. Discussion Notes I discussed with the patient the need for routine monitoring of his diabetes with microalbumin and A1c tests. We also talked about referring him to dermatology for the removal of the skin lesion on his knee. An ultrasound was recommended to follow up on his kidney cysts. I advised monitoring his blood pressure, especially considering the recent bee sting. Patient Instructions - Schedule and attend dermatology appoin tment for skin lesion evaluation and removal. - Complete scheduled ultrasound for kidn ey cyst follow-up. - Monitor blood pressure regularly, don parada after the bee sting incident. - Follow up with it desktop support technician for kia betes management and complete microalbumin and A1c tests. [facility] Medical History Hypogonadism in male Weight loss Shortness of breath Pain of left thumb Snoring Family history of colon cancer Nocturnal hypoxemia Daytime sleepiness URI (upper respiratory infection) Type II diabetes mellitus, well controlled Diverticulosis Elevated cholesterol DM type 2 (diabetes mellitus, type 2) Surgical History Hx of colonoscopy [place] teeth extracted H/O vasectomy Family History Mother No problems noted. Father Colon cancer Social History Housing: House Comment: left eye, better Patient Tobacco Use Status: Never used Tobacco e-Cigarette/Vaping Use: Never Used Second Hand Smoke Exposure: No Current occupational status: employed Current occupation: left handed Cognitive needs: No Hearing needs: No Vision needs: No Questionnaire PHQ-9 Over the last 2 weeks, how often have you been bothered by any of the following problems? 1. Little interest or pleasure in doing things: not at all 2. Feeling down, depressed, or hopeless: not at all 3. Trouble falling or staying asleep, or sleeping too much: not at all 4. Feeling tired or having little energy: not at all 5. Poor appetite or overeating: not at all 6. Feeling bad about yourself - or that you are a failure or have let yourself or your family down: not at all 7. Trouble concentrating on things, such as reading the newspaper or watching television: not at all 8. Moving or speaking so slowly that other people could have noticed. Or the opposite - being so fidgety or restless that you have been moving around a lot more than usual: not at all 9. Thoughts that you would be better off or of hurting yourself in some way: not at all Total score: 0 Depression Screening Interpretation: Negative Depression Screening Done: Yes 48314 - PHQ-9 Billing: Yes Source: Developed by Drs. Suraj Strong, Ewa Shearer, Mahamed Parkinson and colleagues, with an educational nigel from [employer]. Thrive Questionnaire Date Thrive assessed: 09/05/24 I am a: Patient What is your living situation today?: I have a steady place to live Within the past 12 months, did the food you bought not last and you didn't have the money to get more?: Never true Within the past 12 months, did you worry whether your food would run out before you got money to buy more?: Never true Do you have trouble paying for medicines?: No Do you have trouble getting transportation to medical appointments?: No Do you have trouble paying your heating and electricity bill?: No Do you have trouble taking care of your child, family member or friend?: No Do you have trouble with day-to-day activities such as bathing, preparing meals, shopping, managing finances, etc.?: No Are you currently unemployed and looking for a job?: No Are you interested in more education?: No Please select the resources that you would like help with: None Currently or been in a relationship where the following occur: No concerns reported THRIVE Score: 0 AUDIT C Alcohol Use Questionnaire (AUDIT-C) 3. How often do you have six or more drinks on one occasion?: Never Total Score: 0 TIMMY-7 AMB Questionnaire TIMMY-7 Date TIMMY - 7 assessed: 04/02/25 Feeling nervous, anxious, or on edge: 0 = Not at all Not being able to stop or control worryin = Not at all Worrying too much about different things: 0 = Not at all Trouble relaxin = Not at all Being so restless that it is hard to sit still: 0 = Not at all Becoming easily annoyed or irritable: 0 = Not at all Feeling afraid as if something awful might happen: 0 = Not at all Total TIMMY-7 score (0-4 normal; 5-9 mild; 10-14 moderate; 15-21 severe): 0 Source: Developed by Drs. Suraj Strong, Ewa Shearer, Mahamed Parkinson and colleagues, with an educational nigel from [employer]. TIMMY-7 Assessment Billing TIMMY-7 Assessment Tool: TIMMY-7 Assessment 36540 Physical exam (Primary Care) Vital Signs: Last Vital Signs Temp 98.5 F 04/02/25 14:11 Pulse 90 04/02/25 14:11 BP 150/98 H 04/02/25 14:11 Pulse Ox 97 04/02/25 14:11 Oxygen Delivery Method Room Air 04/02/25 14:11 BMI result Body Mass Index 27.5 Tobacco/Smoking Status: Tobacco use Status Tobacco use date assessed 04/02/25 04/02/25 14:17 Patient Tobacco Use Status Never used Tobacco 04/02/25 14:17 e-Cigarette/Vaping Use Never Used 04/02/25 14:17 PHQ-9: PHQ-9 Score PHQ-9: Total score 0 04/02/25 14:32 Depression Screening Interpretation: Negative Thrive Assessment: Date of Thrive Assessment Date Thrive assessed 09/05/24 04/02/25 14:17 Currently or been in a relationship where the following occur: No concerns reported Coding Level of Care Code Est Pt Prev Care 40-64y(88150) Diagnoses Physical exam Z00.00 Type II diabetes mellitus, well controlled E11.9 Complex renal cyst N28.1 Renal cyst N28.1 Skin lesion L98.9 HTN (hypertension) I10 Additional Codes TIMMY-7 Assessment Billing - TIMMY-7 Assessment Tool: TIMMY-7 Assessment 39859 ([id number]) PHQ-9 - 50763 - PHQ-9 Billing: Yes ([id number]) Assessment & Plan Assessment & Plan (1) Physical exam: Code(s): Z00.00 - Encounter for general adult medical examination without abnormal findings Category: Medical (2) Type II diabetes mellitus, well controlled: Code(s): E11.9 - Type 2 diabetes mellitus without complications Category: Medical (3) Complex renal cyst: Code(s): N28.1 - Cyst of kidney, acquired Category: Medical (4) Renal cyst: Code(s): N28.1 - Cyst of kidney, acquired Category: Medical (5) Skin lesion: Code(s): L98.9 - Disorder of the skin and subcutaneous tissue, unspecified Category: Medical (6) HTN (hypertension): Code(s): I10 - Essential (primary) hypertension Category: Medical Plan . Orders: Orders Complete Blood Count Auto Diff Today E11.9 - Type 2 diabetes mellitus without complications, Z00.00 - Encounter for general adult medical examination without abnormal findings Comprehensive [place]. Panel Fast Today E11.9 - Type 2 diabetes mellitus without complications, Z00.00 - Encounter for general adult medical examination without abnormal findings UA CC w/rflx Micro + Cult Today E11.9 - Type 2 diabetes mellitus without complications, Z00.00 - Encounter for general adult medical examination without abnormal findings Microalbumin, Random (w Creat) Today E11.9 - Type 2 diabetes mellitus without complications, Z00.00 - Encounter for general adult medical examination without abnormal findings US renal BI Today N28.1 - Cyst of kidney, acquired TSH reflex Free T4 Today E11.9 - Type 2 diabetes mellitus without complications, Z00.00 - Encounter for general adult medical examination without abnormal findings Lipid Panel Today E11.9 - Type 2 diabetes mellitus without complications, Z00.00 - Encounter for general adult medical examination without abnormal findings Hemoglobin A1c Today E11.9 - Type 2 diabetes mellitus without complications, Z00.00 - Encounter for general adult medical examination without abnormal findings Referrals Dermatology Referral L98.9 - Disorder of the skin and subcutaneous tissue, unspecified
[2025-04-02 14:43] VITALS: BP 148/100
--- OUTSIDE RECORDS SUMMARY | 2025-04-02 14:55 | XMS_ITS | Clinical Summary ---
Author Organization [facility] Address [address] [place] [address] Care Team Providers Care Offbearer Name Role Phone Unavailable Primary Care Provider [...] of 2) 09/28/2021 COVID-19 Vaccine (2 - 2024-2 6 season) 2025 08/25/2020 Influenza Vaccine (#1) 2025 Pneumococcal Vaccine Aged Out No long er eligible based on patient's age to complete this topic RSV Ped < 20 months Aged Out No longe r eligible based on patient's age to complete this topic
--- OUTSIDE RECORDS SUMMARY | 2025-04-02 14:55 | XMS_ITS | Clinical Summary ---
Author Organization [facility] Address [address] [place] [phone] Phone Care Team Providers Care Sap Hana Developer Name Role Phone Unknown, Unknown Primary Care [...] (2 of 2 - PPSV23) 04/08/2022 04/08/2021 INFLUENZA VACCINE (#1) 2025 COVID-19 VACCINE (2 - 2024-2 6 season) 2025 04/30/2021 HEPATITIS A VACCINES Aged Out No [...] Medical Devices Not on file Care Teams Sap Hana Developer Relationship Specialty Start Date End Date Unknown, Unknown, PCP - General 05/26/20 Additional Source Comments The information contained in this document represents components of the legal health record. It is not the complete legal health record.[facility]
--- OUTSIDE RECORDS SUMMARY | 2025-04-02 14:55 | XMS_ITS | Patient Health Record ---
[facility] [place] Address [address] [place] [address] Care Team Providers Care Doctor'S Assistant Name Role Phone Rob Barrett Primary Care Provider Unav ailable Eden Rivas Unavailable [phone] Giselle Carrero Unavailable [phone] Walker Rai Unavailable [phone] Allergies Allergen (clinical drug ingredient) Drug/Non Drug [...] Start Date End Date Status Mounjaro Active [place] 3 Active Immunizations Vaccine Route Administration Date Status Comme nts Influenza Unknown 04/04/2024 Administered Social History Tobacco Use: Social History Observation [...] Polyneuropathy due to type 2 diabetes mellitus ([id number]) Type 2 diabetes mellitus with diabetic polyneuropathy (E11.42) Active confirmed Vital Signs Blood pressure diastolic 65 mm Hg 02/25/2025 Height 5ft 8 in in 02/25/2025 Blood pressure systolic 128 mm Hg 02/25/2025 Weight 174 lbs 02/25/2025 BMI 26.45 kg/m2 02/25/2025 Procedures Procedure Date Ordered Date Performed Result Body Sit e [id number]-[id number] DYSTROPHIC NAILS ANY # 06/21/2024 N/A [id number] DYSTROPHIC NAILS ANY # 09/04/2024 N/A [id number] DYSTROPHIC NAILS ANY # 02/25/2025 N/A Encounters Encounter Location Date [facility] [address] 06/21/2024 Walker Rai Type 2 diabetes mellitus with diabetic polyneuropathy E11.[address] [address] 09/04/2024 Walker Rai Type 2 diabetes mellitus with diabetic polyneuropathy E11.42 [facility] [address] 02/25/2025 Eden Rivas Type 2 diabetes mellitus with diabetic polyneuropathy E11.42 [facility] [address] [facility] [address] [place] [address] 04/02/2024 Walker Rai [address] [address] 06/15/2024 Walker Rai [address] [address] 01/14/2025 Giselle Carrero Assessments Encounter Date Diagnosis (ICD Code) Assessment Notes Treatment Notes Treatment Clinical Notes Section Notes 06/21/2024 Type 2 diabetes mellitus with diabetic polyneuropathy (ICD-10 - E11.42) 09/04/2024 Type 2 diabetes mellitus with diabetic polyneuropathy (ICD-10 - E11.42) 02/25/2025 Type 2 diabetes mellitus with diabetic polyneuropathy (ICD-10 - E11.42) Plan Of Treatment Pending Test Test Name Order Date H8037-[id number] DYSTROPHIC NAILS ANY # U0321-[id number] DYSTROPHIC NAILS ANY # E1066-[id number] DYSTROPHIC NAILS ANY # Next Appt Details Provider Name:Eden yi, 05/23/2025 08:30:00 AM, [address] [place], [address], Insurance Providers Payer Name Payer Address Payer Phone Subscriber Number Group Number Insured Name Patient Relationship to Insured Coverage Start Date Coverage End Date Nikolay [facility] [address] [place] [address] [id number] Nash Mae Self - patient is the insured Medical (General) History Medical History History ICD Code Diabetic Chicken pox Surgical History Surgery Date(Month/Year) wisdom teeth extraction vasectomy colonoscopy
== END 2025-04-02 16:07 | disposition home or self-care (01) ==
LOC: HO.HMCC 13:38
PROVIDERS: PCP Nurse Practitioner Family; Visit Provider Nurse Practitioner Family
DX: Z00.00 Encounter for general adult medical examination without abnormal findings (principal); E11.9 Type 2 diabetes mellitus without complications; N28.1 Cyst of kidney, acquired; L98.9 Disorder of the skin and subcutaneous tissue, unspecified; I10 Essential (primary) hypertension

== ENCOUNTER → 2025-04-02 13:37 | Outpatient (BNVA) | payer BC, SELFPAY | PROVIDERS: PCP Nurse Practitioner Family; Visit Provider Nurse Practitioner Family | DX: Z00.00 Encounter for general adult medical examination without abnormal findings (principal); E11.9 Type 2 diabetes mellitus without complications; R03.0 Elevated blood-pressure reading, without diagnosis of hypertension; N28.1 Cyst of kidney, acquired; L98.9 Disorder of the skin and subcutaneous tissue, unspecified; I10 Essential (primary) hypertension | CPT/HCPCS: 96127 ==

== ENCOUNTER 2025-06-07 12:33 | Outpatient (REF) | payer BC, SELFPAY ==
--- NOTE | ~2025-06-07 | US_ITS ---
EXAMINATION: US KIDNEY BILATERAL HISTORY: N28.1 - Cyst of kidney, acquired TECHNIQUE: Real-time grayscale ultrasound imaging of the kidneys was performed and images were reviewed. COMPARISON: Comparison is made with the prior examination dated 02/13/2024. FINDINGS: Right kidney: The right kidney measures 11.2 x 5.7 x 5.0 cm. Renal parenchymal echotexture and thickness are normal. There is a cyst in the interpolar region measuring 5.0 x 4.0 x 5.0 cm (previously 3.6 x 3.9 x 2.5 cm). There is no hydronephrosis or renal calculi. Left Kidney: The left kidney measures 10.8 x 5.5 x 4.4 cm. Renal parenchymal echotexture and thickness are normal. There is a lower pole cyst measuring 1.2 x 1.1 x 0.9 cm without change. There is no hydronephrosis or renal calculi. US/US renal BI IMPRESSION: Bilateral renal cysts as described. The right renal cyst is larger than on the prior study. Electronically signed by: Suraj Menjivar MD 06/07/2025 01:22 PM ALIVIA
== END 2025-06-07 12:34 | disposition home or self-care (01) ==
LOC: HO.US 12:33
PROVIDERS: PCP Nurse Practitioner Family; Visit Provider Nurse Practitioner Family
DX: N28.1 Cyst of kidney, acquired (principal)
CPT/HCPCS: 76775

== ENCOUNTER → 2025-06-07 12:35 | Outpatient (BNV) | payer BC, SELFPAY | PROVIDERS: PCP Nurse Practitioner Family; Visit Provider Radiology Diagnostic Radiology | DX: N28.1 Cyst of kidney, acquired (principal) | CPT/HCPCS: 76775 ==